=== PATIENT | female | born 1985 | race Two or more races ===

== ENCOUNTER 2020-01-28 11:23 | Outpatient (REF) | payer OTHER, SELFPAY ==
[2020-01-28 12:09] LABS: MANUAL DIFF FLAG NO
[2020-01-28 12:18] LABS: Basophils Absolute Auto 0.1 X10*3/uL (0.0-0.2); Basophils Percent Auto 0.6 % (0-2); Eosinophils Absolute Auto 0.2 X10*3/uL (0.0-0.4); Eosinophils Percent Auto 3.1 % (0-4); Hematocrit 37.7 % (37-47); Hemoglobin 11.5 g/dl (12.0-16.0); Imm Gran Abs Auto 0.01 X10*3/uL (0.00-0.03); Imm Gran Pct Auto 0.1 % (0.0-0.4); Immature Retic Fraction 21.6 % (3.0-15.9); Lymphocytes Absolute Auto 2.1 X10*3/uL (1.2-4.9); Lymphocytes Percent Auto 27.1 % (20-40); Mean Corpuscular HGB Conc 30.5 g/dl (31.0-35.0); Mean Corpuscular Hemoglobin 23.6 pg (27.0-33.0); Mean Corpuscular Volume 77.4 fL (80-98); Mean Platelet Volume 9.5 fL (9.4-12.3); Monocytes Absolute Auto 0.4 X10*3/uL (0.1-1.2); Monocytes Percent Auto 5.2 % (2-11); Neutrophils Absolute Auto 4.9 X10*3/uL (2.0-8.3); Neutrophils Percent Auto 63.9 % (45-73); Platelet Count 383 X10*3/uL (160-400); Red Blood Count 4.87 X10*6/uL (4.20-5.50); Red Cell Distribution Width 16.8 % (11.0-16.0); Retic HGB Equivalent 27.1 pg (30.0-35.0); Reticulocyte Percent 1.8 % (0.5-1.8); Reticulocytes Absolute 0.089 X10*6/uL (0.026-0.095); White Blood Count 7.7 X10*3/uL (4.8-10.8)
[2020-01-28 13:28] LABS: Estimated Average Glucose 103 mg/dL; Hemoglobin A1c % 5.2 %
[2020-01-28 13:33] LABS: Alanine Aminotransferase 28 U/L (0-31); Albumin Level 3.9 g/dL (3.5-5.0); Alkaline Phosphatase 101 U/L (39-117); Anion Gap 11 (12-20); Aspartate Amino Transferase 24 U/L (5-31); Bilirubin Total 0.7 mg/dL (0.0-1.0); Blood Urea Nitrogen 13 mg/dL (9-16); Calcium 8.9 mg/dL (8.4-10.2); Carbon Dioxide 29 mmol/L (22-29); Chloride 104 mmol/L (96-108); Cholesterol 136 mg/dL; Estimated Glomerular Filt Rate > 60; Glucose Fasting 81 mg/dL (60-99); HDL Cholesterol 42 mg/dL; Iron 36 mcg/dL (30-160); LDL Cholesterol Calculated 83 mg/dl; Percent Iron Saturation 9 % (15-50); Potassium 4.4 mmol/l (3.3-5.1); Sodium 140 mmol/L (135-145); Total Iron Binding Capacity 411 mcg/dL (228-428); Triglycerides 58 mg/dL; Unsaturated Iron Binding 375 ug/dL
[2020-01-28 14:04] LABS: Ferritin 11 ng/mL (10-122); Thyroid Stimulating Hormone 2.12 mIU/mL (0.32-4.0); Vitamin D 25-OH Total 24.4 ng/mL (>30)
[2020-01-28 14:11] LABS: Vitamin B12 189 pg/mL (200-900)
[2020-01-28 14:38] LABS: T4 Thyroxine 8.3 ug/dL (4.5-12.0)
== END 2020-01-28 11:24 | disposition home or self-care (01) ==
LOC: HO.LAB 11:23
PROVIDERS: PCP Internal Medicine; Visit Provider Internal Medicine
DX: Z00.00 Encounter for general adult medical examination without abnormal findings (principal); F31.9 Bipolar disorder, unspecified; J45.909 Unspecified asthma, uncomplicated; I10 Essential (primary) hypertension; E55.9 Vitamin D deficiency, unspecified; E66.01 Morbid (severe) obesity due to excess calories; N64.4 Mastodynia; Z12.4 Encounter for screening for malignant neoplasm of cervix
CPT/HCPCS: 36415; 80053; 80061; 82306; 82607; 82728; 82746; 83036; 83540; 84436; 84443; 85025; 85045

== ENCOUNTER 2020-03-08 11:19 | Outpatient (REF) | payer OTHER, SELFPAY ==
[2020-03-08 13:53] LABS: Hematocrit 39.4 % (37-47); Mean Corpuscular HGB Conc 30.5 g/dl (31.0-35.0); Mean Corpuscular Hemoglobin 23.3 pg (27.0-33.0); Mean Corpuscular Volume 76.7 fL (80-98); Mean Platelet Volume 9.6 fL (9.4-12.3); Platelet Count 399 X10*3/uL (160-400); Red Blood Count 5.14 X10*6/uL (4.20-5.50); Red Cell Distribution Width 16.9 % (11.0-16.0); White Blood Count 10.4 X10*3/uL (4.8-10.8)
[2020-03-08 15:50] LABS: Thyroid Stimulating Hormone 2.64 uIU/mL (0.32-4.0)
[2020-03-09 02:52] LABS: CT PCR NOT DETECTED (Not Detect.); NG PCR NOT DETECTED (Not Detect.)
[2020-03-09 08:26] LABS: Syphilis Screen Nonreactive (Nonreactive)
[2020-03-09 09:06] LABS: BV Int Neg Control Negative (Negative); BV Int Pos Control Positive (Positive)
[2020-03-10 09:02] LABS: Hepatitis B Core Antibody Nonreactive (Nonreactive); ~HepC Num1 0.17 S/CO (0.00-0.79); ~Hepatitis C Antibody Nonreactive (Nonreactive)
[2020-03-10 09:23] LABS: HIV AB/AG Nonreactive (Nonreactive); HIV Num 1 0.23 S/CO (0.00-0.99)
[2020-03-10 18:16] LABS: HPV mRNA E6/E7 rflx Not Detected (Not Detected)
== END 2020-03-08 11:20 | disposition home or self-care (01) ==
LOC: HO.LAB 11:19
PROVIDERS: PCP Internal Medicine; Visit Provider Advanced Practice Midwife
DX: Z01.419 Encounter for gynecological examination (general) (routine) without abnormal findings (principal); N92.6 Irregular menstruation, unspecified; R10.2 Pelvic and perineal pain; Z20.2 Contact with and (suspected) exposure to infections with a predominantly sexual mode of transmission; N92.1 Excessive and frequent menstruation with irregular cycle
CPT/HCPCS: 36415; 84443; 85027; 86704; 86780; 86803; 87389; 87480; 87491; 87510; 87591; 87624; 87625; 87660; 88142

== ENCOUNTER → 2020-03-11 12:58 | Outpatient (BNVA) | payer OTHER, SELFPAY | PROVIDERS: PCP Internal Medicine; Visit Provider Advanced Practice Midwife | DX: Z76.89 Persons encountering health services in other specified circumstances (principal) ==

== ENCOUNTER 2020-03-21 11:40 | Outpatient (REF) | payer OTHER, SELFPAY ==
--- NOTE | 2020-03-21 11:42 | US_ITS ---
EXAMINATION: US PELVIS COMPLETE CLINICAL INFORMATION: Pelvic and perineal pain. COMPARISON: None. TECHNIQUE: Transabdominal and transvaginal imaging of pelvis is performed. FINDINGS: The uterus is anteverted measuring 10.1 cm in length, 4.9 cm in AP and 6.4 cm in transverse dimension. Endometrial thickness measures 0.7 cm. There is an IUD within the endometrial canal in correct position. Right ovary measures 2.8 x 2.1 x 2.1 cm and volume 6.5 mL. There are multiple small follicles seen in the right ovary. Left ovary measures 3.3 x 4.5 x 1.4 cm and volume 10.9 mL. There are multiple small follicles seen. US/US transvaginal IMPRESSION: Unremarkable uterus and ovaries. IUD well seen within the endometrial canal in good position.
--- NOTE | 2020-03-21 11:42 | US_ITS ---
EXAMINATION: US PELVIS COMPLETE CLINICAL INFORMATION: Pelvic and perineal pain. COMPARISON: None. TECHNIQUE: Transabdominal and transvaginal imaging of pelvis is performed. FINDINGS: The uterus is anteverted measuring 10.1 cm in length, 4.9 cm in AP and 6.4 cm in transverse dimension. Endometrial thickness measures 0.7 cm. There is an IUD within the endometrial canal in correct position. Right ovary measures 2.8 x 2.1 x 2.1 cm and volume 6.5 mL. There are multiple small follicles seen in the right ovary. Left ovary measures 3.3 x 4.5 x 1.4 cm and volume 10.9 mL. There are multiple small follicles seen. US/US pelvic complete IMPRESSION: Unremarkable uterus and ovaries. IUD well seen within the endometrial canal in good position.
== END 2020-03-21 11:41 | disposition home or self-care (01) ==
LOC: HO.US 11:40
PROVIDERS: PCP Internal Medicine; Visit Provider Advanced Practice Midwife
DX: R10.2 Pelvic and perineal pain (principal)
CPT/HCPCS: 76830; 76856

== ENCOUNTER → 2020-03-22 10:25 | Outpatient (BNVA) | payer OTHER, SELFPAY | PROVIDERS: PCP Internal Medicine; Visit Provider Advanced Practice Midwife | DX: Z76.89 Persons encountering health services in other specified circumstances (principal) ==

== ENCOUNTER 2020-04-08 10:34 | Outpatient (REF) | payer OTHER, SELFPAY ==
[2020-04-09 11:04] LABS: BV Int Neg Control Negative (Negative)
[2020-04-09 11:05] LABS: BV Int Pos Control Positive (Positive)
== END 2020-04-08 10:35 | disposition home or self-care (01) ==
LOC: HO.LAB 10:34
PROVIDERS: PCP Internal Medicine; Referring Provider Internal Medicine; Visit Provider Advanced Practice Midwife
DX: Z30.431 Encounter for routine checking of intrauterine contraceptive device (principal); N89.8 Other specified noninflammatory disorders of vagina; G43.909 Migraine, unspecified, not intractable, without status migrainosus
CPT/HCPCS: 87480; 87510; 87660; 99212

== ENCOUNTER 2020-04-16 07:54 | Outpatient (REF) | payer OTHER, SELFPAY | END 2020-04-16 07:55 | disposition home or self-care (01) | LOC: HO.LAB 07:54 | PROVIDERS: Visit Provider Internal Medicine | DX: Z20.828 Contact with and (suspected) exposure to other viral communicable diseases (principal) | CPT/HCPCS: C9803; U0003 ==

== ENCOUNTER → 2020-05-17 09:24 | Outpatient (BNVA) | payer OTHER, SELFPAY | PROVIDERS: PCP Internal Medicine; Visit Provider Nurse Practitioner Family ==

== ENCOUNTER → 2020-06-23 12:35 | Outpatient (BNVA) | payer OTHER, SELFPAY | PROVIDERS: PCP Internal Medicine; Visit Provider Physician Assistant | DX: E66.01 Morbid (severe) obesity due to excess calories (principal); G47.33 Obstructive sleep apnea (adult) (pediatric) | CPT/HCPCS: 99202 ==

== ENCOUNTER → 2020-07-13 08:13 | Outpatient (BNVA) | payer OTHER, SELFPAY | PROVIDERS: PCP Internal Medicine; Visit Provider Dietitian, Registered ==

== ENCOUNTER → 2020-07-20 10:19 | Outpatient (REF) | payer OTHER, SELFPAY | LOC: HO.SL 10:19 | PROVIDERS: PCP Internal Medicine; Visit Provider Nurse Practitioner Family | DX: G47.33 Obstructive sleep apnea (adult) (pediatric) (principal) | CPT/HCPCS: 95806 ==

== ENCOUNTER → 2020-08-10 08:14 | Outpatient (BNVA) | payer OTHER, SELFPAY | PROVIDERS: PCP Internal Medicine; Visit Provider Dietitian, Registered ==

== ENCOUNTER → 2020-10-11 10:55 | Outpatient (BNVA) | payer OTHER, SELFPAY | PROVIDERS: PCP Internal Medicine; Visit Provider Nurse Practitioner Family ==

== ENCOUNTER → 2020-10-18 08:41 | Outpatient (BNVA) | payer OTHER, SELFPAY | PROVIDERS: PCP Internal Medicine; Visit Provider Nurse Practitioner Family ==

== ENCOUNTER → 2021-01-10 10:13 | Outpatient (BNVA) | payer OTHER, SELFPAY | PROVIDERS: PCP Internal Medicine; Visit Provider Nurse Practitioner Family ==

== ENCOUNTER → 2021-01-30 11:16 | Outpatient (BNVA) | payer OTHER, SELFPAY | PROVIDERS: PCP Internal Medicine; Visit Provider Dietitian, Registered | DX: E66.01 Morbid (severe) obesity due to excess calories (principal) | CPT/HCPCS: 97802 ==

== ENCOUNTER → 2021-03-02 10:51 | Outpatient (BNVA) | payer OTHER, SELFPAY | PROVIDERS: PCP Internal Medicine; Visit Provider Dietitian, Registered | DX: E66.01 Morbid (severe) obesity due to excess calories (principal) | CPT/HCPCS: 97803 ==

== ENCOUNTER → 2021-04-20 10:18 | Outpatient (BNVA) | payer OTHER, SELFPAY | PROVIDERS: PCP Internal Medicine; Visit Provider Dietitian, Registered | DX: E66.01 Morbid (severe) obesity due to excess calories (principal); Z68.43 Body mass index [BMI] 50.0-59.9, adult | CPT/HCPCS: 97803 ==

== ENCOUNTER 2021-05-15 09:23 | Outpatient (REF) | payer OTHER, SELFPAY ==
[2021-05-15 10:29] LABS: COVID-19 Test Negative (Negative)
== END 2021-05-15 09:24 | disposition home or self-care (01) ==
LOC: HO.LAB 09:23
PROVIDERS: Visit Provider Internal Medicine
DX: Z20.822 Contact with and (suspected) exposure to COVID-19 (principal)
CPT/HCPCS: 87635; C9803

== ENCOUNTER 2021-05-19 11:07 | Outpatient (REF) | payer OTHER, SELFPAY ==
[2021-05-19 11:28] LABS: Binax Internal Control QC Valid; Binax Now Covid-19 Ag Negative (Negative)
== END 2021-05-19 11:08 | disposition home or self-care (01) ==
LOC: HO.LAB 11:07
PROVIDERS: PCP Internal Medicine; Visit Provider Internal Medicine
DX: Z20.822 Contact with and (suspected) exposure to COVID-19 (principal)
CPT/HCPCS: C9803

== ENCOUNTER → 2021-05-24 10:37 | Outpatient (BNVA) | payer OTHER, SELFPAY | PROVIDERS: PCP Internal Medicine; Visit Provider Nurse Practitioner Family | DX: G93.2 Benign intracranial hypertension (principal); G43.909 Migraine, unspecified, not intractable, without status migrainosus; G47.33 Obstructive sleep apnea (adult) (pediatric); R20.2 Paresthesia of skin | CPT/HCPCS: 99212 ==

== ENCOUNTER 2021-06-08 11:01 | Outpatient (REF) | payer OTHER, SELFPAY ==
[2021-06-08 11:32] LABS: MANUAL DIFF FLAG NO
[2021-06-08 13:04] LABS: Basophils Percent Auto 0.4 % (0-2); Eosinophils Absolute Auto 0.2 X10*3/uL (0.0-0.4); Eosinophils Percent Auto 2.4 % (0-4); Hematocrit 42.3 % (37.0-47.0); Hemoglobin 13.4 g/dl (12.0-16.0); Imm Gran Abs Auto 0.03 X10*3/uL (0.00-0.03); Imm Gran Pct Auto 0.3 % (0.0-0.4); Lymphocytes Absolute Auto 2.4 X10*3/uL (1.2-4.9); Lymphocytes Percent Auto 25.2 % (20-40); Mean Corpuscular HGB Conc 31.7 g/dl (31.0-35.0); Mean Corpuscular Volume 82.1 fL (80.0-98.0); Mean Platelet Volume 9.6 fL (9.4-12.3); Monocytes Absolute Auto 0.5 X10*3/uL (0.1-1.2); Monocytes Percent Auto 5.1 % (2-11); Neutrophils Absolute Auto 6.4 x10*3/uL (2.0-8.3); Neutrophils Percent Auto 66.6 % (45-73); Platelet Count 405 X10*3/uL (160-400); Red Blood Count 5.15 X10*6/uL (4.20-5.50); Red Cell Distribution Width 15.4 % (11.0-16.0); White Blood Count 9.6 X10*3/uL (4.8-10.8)
[2021-06-08 13:38] LABS: Alanine Aminotransferase 18 U/L (0-31); Alkaline Phosphatase 105 U/L (39-117); Anion Gap 13 (12-20); Aspartate Amino Transferase 15 U/L (5-31); Bilirubin Total 0.7 mg/dL (0.0-1.0); Blood Urea Nitrogen 13 mg/dL (9-16); Calcium 9.2 mg/dL (8.4-10.2); Carbon Dioxide 26 mmol/L (22-29); Chloride 106 mmol/L (96-108); Estimated Glomerular Filt Rate > 60; Glucose Random 82 mg/dL (60-115); Iron 46 mcg/dL (30-160); Percent Iron Saturation 12 % (15-50); Potassium 4.6 mmol/L (3.3-5.1); Sodium 140 mmol/L (135-145); Total Iron Binding Capacity 398 mcg/dL (228-428); Total Protein 7.7 g/dL (6.5-8.0); Unsaturated Iron Binding 352 ug/dL
[2021-06-08 14:08] LABS: TSH reflex Free T4 1.89 uIU/mL (0.32-4.0)
[2021-06-08 14:39] LABS: Ferritin 45 ng/mL (10-122)
[2021-06-10 13:51] LABS: Transferrin 309 mg/dL (188-341)
== END 2021-06-08 11:02 | disposition home or self-care (01) ==
LOC: HO.LAB 11:01
PROVIDERS: Absent Provider Nurse Practitioner Family; PCP Internal Medicine; Visit Provider Internal Medicine
DX: D64.9 Anemia, unspecified (principal); I10 Essential (primary) hypertension; R53.83 Other fatigue; K59.00 Constipation, unspecified
CPT/HCPCS: 36415; 80053; 82728; 83540; 84443; 84466; 85025

== ENCOUNTER 2021-08-10 12:42 | Outpatient (REF) | payer OTHER, SELFPAY ==
--- NOTE | ~2021-08-10 | XR_ITS ---
EXAMINATION: X-RAY THORACIC SPINE X-RAY LUMBAR SPINE CLINICAL INFORMATION: Pain. COMPARISON: No similar priors. TECHNIQUE: 3 views of the thoracic spine and 3 views of the lumbar spine were obtained. FINDINGS: Nonspecific endplate sclerosis and irregularity at the superior and inferior endplates of L1. There is also nonspecific mild irregularity in the inferior endplate of T10 and T11. There is a tiny nonspecific well-corticated bony fragment anterior to the inferior endplate of L3. Sacroiliac joints are symmetric. There are multiple pelvic phleboliths and an IUD in the pelvis. Imaged portions of the lungs and cardiomediastinal silhouette are within normal limits. XR/XR lumbar spine 2-3V IMPRESSION: Nonspecific endplate irregularity at L1 and less so T10 and T11. Correlate for point tenderness and if indicated consider further evaluation with a CT or an MR.
--- NOTE | ~2021-08-10 | XR_ITS ---
EXAMINATION: XR CERVICAL SPINE CLINICAL INFORMATION: Pain. COMPARISON: No similar priors. TECHNIQUE: 3 views of the cervical spine were obtained. FINDINGS: There are no prevertebral soft tissue or bony abnormalities demonstrated. No compression fractures or subluxations are identified. Alignment is maintained at the atlanto-axial articulation. The disc spaces are preserved. No endplate changes are seen. The prevertebral soft tissues are normal. XR/XR cervical spine 2V IMPRESSION: Unremarkable examination.
--- NOTE | ~2021-08-10 | XR_ITS ---
EXAMINATION: X-RAY THORACIC SPINE X-RAY LUMBAR SPINE CLINICAL INFORMATION: Pain. COMPARISON: No similar priors. TECHNIQUE: 3 views of the thoracic spine and 3 views of the lumbar spine were obtained. FINDINGS: Nonspecific endplate sclerosis and irregularity at the superior and inferior endplates of L1. There is also nonspecific mild irregularity in the inferior endplate of T10 and T11. There is a tiny nonspecific well-corticated bony fragment anterior to the inferior endplate of L3. Sacroiliac joints are symmetric. There are multiple pelvic phleboliths and an IUD in the pelvis. Imaged portions of the lungs and cardiomediastinal silhouette are within normal limits. XR/XR thoracic spine 2V IMPRESSION: Nonspecific endplate irregularity at L1 and less so T10 and T11. Correlate for point tenderness and if indicated consider further evaluation with a CT or an MR.
== END 2021-08-10 12:43 | disposition home or self-care (01) ==
LOC: HO.XRAY 12:42
PROVIDERS: PCP Internal Medicine; Visit Provider Internal Medicine
DX: M54.9 Dorsalgia, unspecified (principal)
CPT/HCPCS: 72040; 72070; 72100

== ENCOUNTER 2021-08-23 13:13 | Outpatient (REF) | payer OTHER, SELFPAY ==
[2021-08-23 17:54] LABS: CT PCR NOT DETECTED (Not Detect.); NG PCR NOT DETECTED (Not Detect.)
[2021-08-24 15:47] LABS: BV Int Neg Control Negative (Negative); BV Int Pos Control Positive (Positive)
== END 2021-08-23 13:14 | disposition home or self-care (01) ==
LOC: HO.LAB 13:13
PROVIDERS: PCP Internal Medicine; Visit Provider Advanced Practice Midwife
DX: Z01.419 Encounter for gynecological examination (general) (routine) without abnormal findings (principal); N93.9 Abnormal uterine and vaginal bleeding, unspecified; L29.2 Pruritus vulvae; R71.8 Other abnormality of red blood cells; Z87.891 Personal history of nicotine dependence; Z20.2 Contact with and (suspected) exposure to infections with a predominantly sexual mode of transmission
CPT/HCPCS: 87480; 87491; 87510; 87591; 87660

== ENCOUNTER 2021-09-14 13:12 | Outpatient (REF) | payer OTHER, SELFPAY ==
--- NOTE | ~2021-09-14 | US_ITS ---
EXAMINATION: US PELVIS COMPLETE US PELVIS ENDOVAGINAL WITH DOPPLER CLINICAL INFORMATION: Irregular menstruation COMPARISON: 01/14/2017 TECHNIQUE: Transabdominal and transvaginal images of the pelvis were obtained. Color and spectral Doppler evaluation of the bilateral adnexa was performed. FINDINGS: UTERUS: Anteverted, anteflexed. Normal size and contour, measuring 10.7 x 5.2 x 5.8 cm (cervix to fundus x AP x transverse). Uniform, homogeneous endometrium measures 0.9 cm in width. A linear echogenic IUD is seen centrally in the endometrial canal. Small amount of fluid in the endocervical canal is consistent with ongoing vaginal bleeding. RIGHT OVARY: The right ovary was only identified transabdominally. It measures 4.5 x 3.4 x 3.6 cm with a 3.6 x 3.1 x 3.0 cm anechoic simple physiologic cyst for which no imaging follow-up is recommended. Normal arterial and venous spectral Doppler waveforms are identified. LEFT OVARY: Left ovary not seen. No adnexal mass. FREE FLUID: No pelvic free fluid. US/US pelvic and transvaginal IMPRESSION: Normal endometrial stripe, 9 mm in thickness. Small amount of fluid in the endocervical canal is consistent with history of ongoing vaginal bleeding. Normal right ovary. Left ovary not seen but there is no adnexal mass.
== END 2021-09-14 13:13 | disposition home or self-care (01) ==
LOC: HO.US 13:12
PROVIDERS: Visit Provider Advanced Practice Midwife
DX: N92.6 Irregular menstruation, unspecified (principal)
CPT/HCPCS: 76830; 76856

== ENCOUNTER → 2021-09-20 10:56 | Outpatient (BNVA) | payer OTHER, SELFPAY | PROVIDERS: PCP Internal Medicine; Visit Provider Advanced Practice Midwife | DX: Z13.89 Encounter for screening for other disorder (principal) ==

== ENCOUNTER → 2021-12-12 16:12 | Outpatient (REF) | payer OTHER, SELFPAY | LOC: HO.SL 16:12 | PROVIDERS: PCP Internal Medicine; Visit Provider Internal Medicine | DX: G47.33 Obstructive sleep apnea (adult) (pediatric) (principal) | CPT/HCPCS: 95806 ==

== ENCOUNTER → 2022-02-14 08:05 | Outpatient (REF) | payer OTHER, SELFPAY ==
--- NOTE | 2022-02-14 08:08 | CA_ITS ---
Acquisition Time: 2022-02-14 08:15:17 Total Exercise Time: 00:05:00 Test Indications: Chest Pain Medications: SEE H Protocol: TEO Max HR: 160 BPM 87% of Pred: 182 BPM Max BP: 144/078 mmHG Max Work Load: 7.0 METS Exercise stress test with exercise 5 min of Teo protocol, achieving 87% MPHR, 7 METS, with fatigue and mild sob, no chest discomfort, without arrythmia, with normotensive response to exercise, without EKG changes meeting criteria for ischemia. In later recovery there is slight downslope of ST lead II, V6 and downslope ST lead III, aVF, which could be nonspecific finding as baseline EKG has downsloping ST lead III. Test reviewed with Dr Ceballos. Message sent to ordering provider with report and recommendation for a stress echocardiogram if further evaluation for ischemia is needed. Referred By: Atif Milian Overread By: ARIK MORLEY
== END ==
LOC: HO.CARD 08:05
PROVIDERS: PCP Internal Medicine; Visit Provider Internal Medicine
DX: R07.9 Chest pain, unspecified (principal)
CPT/HCPCS: 93017

== ENCOUNTER → 2022-02-26 10:57 | Outpatient (REF) | payer OTHER, SELFPAY ==
--- NOTE | 2022-02-26 11:00 | CA_ITS ---
Acquisition Time: 2022-02-26 11:33:25 Total Exercise Time: 00:05:49 Test Indications: CP Medications: SEE CHART Protocol: TEO Max HR: 173 BPM 95% of Pred: 182 BPM Max BP: 164/080 mmHG Max Work Load: 7.0 METS Exercise stress test with exercise 5 min 49 sec of Teo protocol, achieving 95% MPHR, without anginal symptoms, without arrythmia, with normotensive response to exercise, without EKG changes meeting criteria for ischemia at peak exercise, with slight downslope of ST in lead I, V6 in recovery, At baseline there was downsloping ST lead III, aVF which was present throughout test. Echo images obtained by tech at rest and immediately post peak exercise. Definity contrast used. Test reviewed with Dr Friedman Referred By: Atif Milian Overread By: ARIK MORLEY
== END ==
LOC: HO.CARD 10:57
PROVIDERS: PCP Internal Medicine; Visit Provider Internal Medicine
DX: R07.9 Chest pain, unspecified (principal)
CPT/HCPCS: 93350; Q9957

== ENCOUNTER 2022-02-28 16:27 | Outpatient (REF) | payer OTHER, SELFPAY ==
--- NOTE | ~2022-02-28 | US_ITS ---
EXAMINATION: US PELVIS LIMITED (BLADDER) CLINICAL INFORMATION: Retention of urine, unspecified. COMPARISON: Ultrasound abdomen complete 10/31/2017. Renal ultrasound 01/14/2017. CT abdomen and pelvis 03/20/2014. X-ray KUB 03/17/2014 and 03/09/2014. TECHNIQUE: Real-time imaging of the bladder. FINDINGS: BLADDER: Well distended and normal. Bilateral ureteral jets are demonstrated. Prevoid bladder volume is 213.0 mL. Postvoid bladder volume is 24.3 mL. There is no significant post void bladder residual. US/US bladder IMPRESSION: Unremarkable exam.
== END 2022-02-28 16:28 | disposition home or self-care (01) ==
LOC: HO.US 16:27
PROVIDERS: Visit Provider Internal Medicine
DX: R33.9 Retention of urine, unspecified (principal)
CPT/HCPCS: 76857

== ENCOUNTER → 2022-03-05 11:04 | Outpatient (BNVA) | payer OTHER, SELFPAY | PROVIDERS: PCP Internal Medicine; Visit Provider Physician Assistant | DX: K62.5 Hemorrhage of anus and rectum (principal); E66.01 Morbid (severe) obesity due to excess calories; Z83.71 Family history of colonic polyps; Z68.43 Body mass index [BMI] 50.0-59.9, adult | CPT/HCPCS: 99202; 99212 ==

== ENCOUNTER → 2022-04-17 14:50 | Outpatient (BNVA) | payer OTHER, SELFPAY | PROVIDERS: PCP Internal Medicine; Referring Provider Internal Medicine; Visit Provider Internal Medicine | DX: R07.9 Chest pain, unspecified (principal) | CPT/HCPCS: 99202 ==

== ENCOUNTER → 2022-07-23 13:42 | Outpatient (BNVA) | payer OTHER, SELFPAY | PROVIDERS: PCP Internal Medicine; Visit Provider Physician Assistant ==

== ENCOUNTER 2022-08-02 12:48 | Outpatient (REF) | payer OTHER, SELFPAY | END 2022-08-02 12:49 | disposition home or self-care (01) | LOC: HO.SH 12:48 | PROVIDERS: Visit Provider Internal Medicine | DX: Z01.118 Encounter for examination of ears and hearing with other abnormal findings (principal); H93.13 Tinnitus, bilateral; R42 Dizziness and giddiness | CPT/HCPCS: 92557; 92567 ==

== ENCOUNTER → 2022-08-06 12:57 | Outpatient (BNVA) | payer OTHER, SELFPAY | PROVIDERS: PCP Internal Medicine; Visit Provider Physician Assistant | DX: Z11.0 Encounter for screening for intestinal infectious diseases (principal); E66.01 Morbid (severe) obesity due to excess calories; G47.33 Obstructive sleep apnea (adult) (pediatric); I10 Essential (primary) hypertension; G43.909 Migraine, unspecified, not intractable, without status migrainosus; F31.9 Bipolar disorder, unspecified; G93.2 Benign intracranial hypertension; Z68.43 Body mass index [BMI] 50.0-59.9, adult | CPT/HCPCS: 99211; 99212 ==

== ENCOUNTER 2022-08-06 14:10 | Outpatient (REF) | payer OTHER, SELFPAY ==
[2022-08-10 12:14] LABS: H Pylori Breath Test Negative (Negative)
== END 2022-08-06 14:11 | disposition home or self-care (01) ==
LOC: HO.LNP 14:10
PROVIDERS: Visit Provider Physician Assistant
DX: Z01.818 Encounter for other preprocedural examination (principal); E66.01 Morbid (severe) obesity due to excess calories
CPT/HCPCS: 83013

== ENCOUNTER 2022-08-28 11:00 | Outpatient (REF) | payer OTHER, SELFPAY ==
[2022-08-28 15:00] LABS: CT PCR NOT DETECTED (Not Detect.); NG PCR NOT DETECTED (Not Detect.)
[2022-08-29 08:53] LABS: BV Int Neg Control Negative (Negative); BV Int Pos Control Positive (Positive)
== END 2022-08-28 11:01 | disposition home or self-care (01) ==
LOC: HO.LAB 11:00
PROVIDERS: PCP Internal Medicine; Visit Provider Advanced Practice Midwife
DX: N92.1 Excessive and frequent menstruation with irregular cycle (principal); Z20.2 Contact with and (suspected) exposure to infections with a predominantly sexual mode of transmission; Z97.5 Presence of (intrauterine) contraceptive device
CPT/HCPCS: 0353U; 87480; 87510; 87660

== ENCOUNTER 2022-08-28 12:08 | Outpatient (REF) | payer OTHER, SELFPAY ==
[2022-08-31 06:28] LABS: HPV mRNA E6/E7 rflx Not Detected (Not Detected)
== END 2022-08-28 12:09 | disposition home or self-care (01) ==
LOC: HO.LNP 12:08
PROVIDERS: Visit Provider Advanced Practice Midwife
DX: Z01.419 Encounter for gynecological examination (general) (routine) without abnormal findings (principal); Z11.51 Encounter for screening for human papillomavirus (HPV); N92.1 Excessive and frequent menstruation with irregular cycle; Z97.5 Presence of (intrauterine) contraceptive device
CPT/HCPCS: 87624; 88142

== ENCOUNTER → 2022-09-05 10:15 | Outpatient (BNVA) | payer OTHER, SELFPAY | PROVIDERS: PCP Internal Medicine; Visit Provider Dietitian, Registered | DX: E66.01 Morbid (severe) obesity due to excess calories (principal) | CPT/HCPCS: 97803 ==

== ENCOUNTER 2022-09-12 10:14 | Outpatient (REF) | payer OTHER, SELFPAY ==
--- NOTE | ~2022-09-12 | US_ITS ---
EXAMINATION: US PELVIS CLINICAL INFORMATION: Excessive and frequent menses; for assessment of IUD position. COMPARISON: Pelvic ultrasound dated 09/14/2021. TECHNIQUE: Ultrasound of the pelvis is performed using both transabdominal and transvaginal transducers along with Doppler. Transvaginal imaging is performed due to inadequate visualization transabdominally. FINDINGS: Uterus: The uterus is anteverted and anteflexed. The uterus measures 10.1 x 5.0 x 5.6 cm. The double wall endometrial thickness is 0.6 mm. An intrauterine device is seen, properly situated within the endometrial canal. There is very mild nonspecific, anechoic fluid within the endocervical canal. The uterus is smooth in contour and has normal myometrial echogenicity. No visible fibroid. The right ovary is not visualized. The left ovary measures 3.0 x 2.7 x 2.4 cm for a volume of 10.5 mL. The left ovary contains a 2.7 cm in maximal diameter simple physiologic cyst. There is no pelvic free fluid. No adnexal mass is seen. US/US pelvic and transvaginal IMPRESSION: 1. An intrauterine device is seen, properly situated within the endometrial canal. 2. There is mild endocervical anechoic fluid. 3. The right ovary is not visualized. 4. A 2.7 cm simple physiologic left ovarian cyst is seen, for which no imaging follow-up is recommended.
[2022-09-12 11:09] LABS: Hematocrit 41.9 % (37.0-47.0); Hemoglobin 13.7 g/dl (12.0-16.0); Mean Corpuscular HGB Conc 32.7 g/dl (31.0-35.0); Mean Corpuscular Hemoglobin 27.1 pg (27.0-33.0); Mean Platelet Volume 9.5 fL (9.4-12.3); Platelet Count 338 X10*3/uL (160-400); Red Blood Count 5.05 X10*6/uL (4.20-5.50); Red Cell Distribution Width 13.8 % (11.0-16.0)
[2022-09-12 12:10] LABS: HCG Quantitative < 2 mIU/mL
[2022-09-12 12:16] LABS: Syphilis Screen Nonreactive (Nonreactive)
[2022-09-12 12:26] LABS: HBc Num1 0.07 S/CO (0.00-0.79); HIV AB/AG Nonreactive (Nonreactive); HIV Num 1 0.07 S/CO (0.00-0.99); Hepatitis B Core Antibody Nonreactive (Nonreactive); ~HepC Num1 0.19 S/CO (0.00-0.79); ~Hepatitis C Antibody Nonreactive (Nonreactive)
== END 2022-09-12 10:15 | disposition home or self-care (01) ==
LOC: HO.US 10:14
PROVIDERS: PCP Internal Medicine; Visit Provider Advanced Practice Midwife
DX: Z11.4 Encounter for screening for human immunodeficiency virus [HIV] (principal); N92.1 Excessive and frequent menstruation with irregular cycle; Z20.2 Contact with and (suspected) exposure to infections with a predominantly sexual mode of transmission; Z97.5 Presence of (intrauterine) contraceptive device
CPT/HCPCS: 36415; 76830; 76856; 84702; 85027; 86704; 86780; 86803; 87389

== ENCOUNTER → 2022-09-19 10:28 | Outpatient (BNVA) | payer OTHER, SELFPAY | PROVIDERS: PCP Internal Medicine; Visit Provider Physician Assistant | DX: E66.01 Morbid (severe) obesity due to excess calories (principal); Z68.43 Body mass index [BMI] 50.0-59.9, adult; F31.9 Bipolar disorder, unspecified; F43.10 Post-traumatic stress disorder, unspecified; F41.0 Panic disorder [episodic paroxysmal anxiety] | CPT/HCPCS: 99212 ==

== ENCOUNTER → 2022-09-26 09:20 | Outpatient (BNVA) | payer OTHER, SELFPAY | PROVIDERS: PCP Internal Medicine; Visit Provider Advanced Practice Midwife ==

== ENCOUNTER → 2022-11-01 14:42 | Outpatient (BNVA) | payer OTHER, SELFPAY | PROVIDERS: PCP Internal Medicine; Visit Provider Internal Medicine | DX: G47.33 Obstructive sleep apnea (adult) (pediatric) (principal); J45.909 Unspecified asthma, uncomplicated; F31.9 Bipolar disorder, unspecified; E66.01 Morbid (severe) obesity due to excess calories; Z68.43 Body mass index [BMI] 50.0-59.9, adult | CPT/HCPCS: 99202 ==

== ENCOUNTER 2023-01-29 10:59 | Outpatient (AMB) | payer OTHER, SELFPAY ==
[2023-01-29 11:13] VITALS: BP 136/74; PULSE 85; O2SAT 98; BMI 54.1
--- NOTE | 2023-01-29 11:13 | A.OFFPC_ITS ---
Vital Signs 01/29/23 11:13 Height 5 ft Weight 277 lb BMI 54.1 BP 136/74 Blood Pressure Location Lt brachial Position Sitting Pulse 85 Pulse Source Pulse Oximeter Pulse Oximetry (%) 98 Oxygen Delivery Method Room Air Intake Visit Reasons: PE Allergies Iodinated Contrast Media [CONTRAST, IV] Allergy (Severe, Verified 01/29/23 11:14) Anaphylaxis bee pollen [bee stings] Allergy (Unknown, Verified 01/29/23 11:14) edema Benadryl Allergy (Unknown, Verified 01/29/23 11:14) edema, swelling citalopram [Celexa] Allergy (Unknown, Verified 01/29/23 11:14) edema hydrochlorothiazide Allergy (Unknown, Verified 01/29/23 11:14) unknown latex Allergy (Unknown, Verified 01/29/23 11:14) Swelling prednisolone Allergy (Unknown, Verified 01/29/23 11:14) unknown seafood Allergy (Unknown, Verified 01/29/23 11:14) Hives shellfish derived Allergy (Unknown, Verified 01/29/23 11:14) Swelling tramadol Allergy (Unknown, Verified 01/29/23 11:14) hives sertraline Adverse Reaction (Intermediate, Verified 01/29/23 11:14) confused, yaya Diamox Sequels Adverse Reaction (Unknown, Verified 01/29/23 11:14) pain/tingling lisinopril Adverse Reaction (Unknown, Verified 01/29/23 11:14) dizziness Medication List - Last Reconciled 01/29/23 by Aitf Milian MD albuterol sulfate 90 mcg/actuation (Ventolin HFA) 2 puffs inhalation Q6H PRN ascorbate calcium (vitamin C) 500 mg PO DAILY 90 days aspirin (Adult Aspirin Regimen) 81 mg PO DAILY [id number] 50-325-40 mg 1 tab PO Q6H PRN cyanocobalamin (vitamin B-12) 1,000 mcg PO DAILY 90 days docusate sodium (Colace) 200 mg (2 x 100 mg) PO BEDTIME 90 days fluticasone propionate 110 mcg/actuation (Flovent HFA) 1 puff inhalation BID 90 days levonorgestrel (Mirena) intrauterine liraglutide (weight loss) (Saxenda) inject subcutaneously once daily: week 1 = 0.6 mg; week 2 = 1.2 mg; week 3 = 1.8 mg; week 4 = 2.4 mg; then 3 mg daily subcut losartan 100 mg PO DAILY 30 days polyethylene glycol 3350 (Miralax) 17 grams PO DAILY propranolol 10 mg PO BID [Rollator with seat and seat As directed] Tobacco use date assessed: 07/23/22 Dental Screening Dental Screen Date: 01/29/23 Did you have a dental visit in the last 12 months?: Yes Did you have a dental problem in the last 6 months where you did not have access to dental care?: No Was dental information given to patient?: Patient has dentist HPI PE HPI Details 37-year-old morbidly obese female with b ipolar disorder hypertension GERD last seen in June 2022. Patient is here for physical exam. Review of the notes has seen cardiology November 2022 for the chest pain through Telehealth had a stress test echocardiogram was pending. Patient also has obstructive sleep apnea has started to use the CPAP continuing with the inhalers for the asthma. FOR[facility]LY [facility], [facility] Medical History (Updated 01/29/23 @ 11:49 by Atif Milian MD) Asthma Left ovarian cyst Breakthrough bleeding associated with intrauterine device (IUD) Morbid obesity due to excess calories Exposure to hepatitis C Insomnia Migraine GERD (gastroesophageal reflux disease) Peripheral vascular disease Iron deficiency anemia Irregular menses Well woman exam with routine gynecological exam Obstructive sleep apnea Fibromyalgia Tension headache Bipolar 1 disorder Asthma Hypertension Surgical History Hx of tubal ligation Family History Father Hypertension Lymphoma Myocardial infarct Diabetes mellitus Mother Epilepsy Asthma Sleep apnea Bipolar disorder Colon polyps Maternal Grandmother Diabetes mellitus Paternal Grandfather Pancreatic cancer Myocardial infarct Paternal Aunt Breast CA Sister No problems noted. Sister No problems noted. Brother Myocardial infarct Brother No problems noted. Daughter Seizure Anxiety Depression Asthma Migraine Daughter ADHD Daughter No problems noted. Paternal Uncle Schizophrenia Social History Housing: Apartment Alcohol intake: never Patient Tobacco Use Status: Former Tobacco user Tobacco use type: Cigarette Years Smoked: 2010 stopped e-Cigarette/Vaping Use: Never Used Second Hand Smoke Exposure: No service: No Current occupational status: employed Sexual orientation: Straight/Heterosexual Gender identity: Female Cognitive needs: No Hearing needs: No Vision needs: No Female Reproductive History Menstrual Age of Menarche: 10 Questionnaire PHQ-9 Over the last 2 weeks, how often have you been bothered by any of the following problems? 1. Little interest or pleasure in doing things: several days 2. Feeling down, depressed, or hopeless: several days 3. Trouble falling or staying asleep, or sleeping too much: not at all 4. Feeling tired or having little energy: not at all 5. Poor appetite or overeating: not at all 6. Feeling bad about yourself - or that you are a failure or have let yourself or your family down: not at all 7. Trouble concentrating on things, such as reading the newspaper or watching television: not at all 8. Moving or speaking so slowly that other people could have noticed. Or the opposite - being so fidgety or restless that you have been moving around a lot more than usual: not at all 9. Thoughts that you would be better off or of hurting yourself in some way: not at all Total score: 2 Depression Screening Interpretation: Negative Depression Screening Done: Yes 67608 - PHQ-9 Billing: Yes Source: Developed by Drs. Dakotah Faustin, Bonilla Maradiaga and colleagues, with an educational berhane from [employer]. Thrive Questionnaire Date Thrive assessed: 05/25/22 AUDIT C Alcohol Use Questionnaire (AUDIT-C) 1. How often do you have a drink containing alcohol?: Never 2. How many drinks containing alcohol do you have on a typical day when you are drinking?: 1 or 2 (0) 3. How often do you have six or more drinks on one occasion?: Never Total Score: 0 Score Reviewed/Action Taken: No JORI-7 AMB Questionnaire JORI-7 Date JORI - 7 assessed: 05/25/22 Source: Developed by Drs. Dakotah Faustin, Bonilla Maradiaga and colleagues, with an educational berhane from [employer]. Review of Systems Const Denies poor appetite and Denies weakness Eyes Denies no additional complaints ENT Reports Normal hearing present, Denies dizziness, Denies nasal congestion, Den ies tinnitus and Denies sore throat Card Denies chest pain, Denies syncope, Denies rapid heart rate and Denies dyspnea Resp Denies cough and Denies dyspnea GI Denies change in stool character, Reports constipation, Denies diarrhea, Denies nausea and Denies vomiting Denies urinary frequency, Denies difficulty voiding and Denies dysuria Neuro Reports Normal hearing present, Denies confusion, Denies dizziness, Denies syncope and Denies weakness Psych Denies confusion Physical exam (Primary Care) Vital Signs: Last Vital Signs Pulse 85 01/29/23 11:13 BP 136/74 01/29/23 11:13 Pulse Ox 98 01/29/23 11:13 Oxygen Delivery Method Room Air 01/29/23 11:13 BMI result Body Mass Index 54.1 Tobacco/Smoking Status: Tobacco use Status Tobacco use date assessed 07/23/22 01/29/23 11:15 Patient Tobacco Use Status Former Tobacco user 01/29/23 11:15 Tobacco use type Cigarette 01/29/23 11:15 e-Cigarette/Vaping Use Never Used 01/29/23 11:15 PHQ-9: PHQ-9 Score PHQ-9: Total score 2 01/29/23 11:43 Depression Screening Interpretation: Negative Thrive Assessment: Date of Thrive Assessment Date Thrive assessed 05/25/22 01/29/23 11:15 Const General: No confusion Orientation/consciousness: No confusion HENMT Head: Yes normocephalic Ears: external ears normal and TM's normal bilaterally Face and sinus: Yes normal facial exam Mouth: moist mucous membranes Throat: Yes tonsils normal Eyes Conjunctivae: conjunctivae normal Pupils: Equal, round and reactive pupils present and Pupil accommodation reflex normal Direct Ophthalmoscopy: normal light reflex Neck Neck: No lymphadenopathy Thyroid: Thyroid normal Chest Chest palpation & inspection: normal inspection of the chest Resp Effort & Inspection: normal respiratory effort and no audible wheezes Auscultation: clear to auscultation bilaterally, no crackles, no wheezes and lung sounds not diminished Cardio Rate: regular rate Rhythm: regular rhythm Peripheral pulses: radial pulses present and dorsalis pedis present GI Palpation (GI): no masses Auscultation: normal bowel sounds and normoactive bowel sounds Rectal Exam - Female: deferred Skin General skin exam: no rashes or lesions noted Rashes: no rashes Neuro General: No confusion Cranial nerves: Yes Equal, round and reactive pupils present and Yes Normal hearing present Cognition (Neuro): normal cognition Gait exam (Neuro): Normal gait present Motor exam (neuro): 5/5 motor strength present throughout Deep tendon reflexes (DTR's): Right brachioradialis reflex intensity grade: 2+, Left brachioradialis reflex intensity grade: 2+, Right patellar reflex intensity grade: 2+ and Left patellar reflex intensity grade: 2+ Extrem General: No edema Office Procedures Flu Questionnaire Does the patient have a severe egg allergy?: No Does the patient have severe life threatening allergies?: No Does the patient have a fever or illness today?: No Has the patient ever had Guillain-Vanleer Syndrome?: No Has the patient ever had any past reaction to a flu shot?: No Immunizations flu vacc [id number] 6mos up(PF) 60 mcg(15 mcgx4)/0.5 mL IM syringe Performing Provider: Atif Milian MD [facility] Documented (not given) by: Laila Marin CMA on 01/29/23 11:44 Reason Not Given: Patient Refused Assessment and Plan Assessment & Plan (1) Annual physical exam: Code(s): Z00.00 - Encounter for general adult medical examination without abnormal findings (2) Asthma: Comment: Mild intermittent Code(s): J45.909 - Unspecified asthma, uncomplicated Plan: Continue with the inhaler patient follows up with Pulmonary (3) Morbid obesity: Comment: LONGSTANDING HISTORY OF MORBID OBESITY, CURRENTLY IN WEIGHT MANAGEMENT PROGRAM, Code(s): E66.01 - Morbid (severe) obesity due to excess calories Plan: Diet and exercise (4) Obstructive sleep apnea: Comment: SHE HAS HAD MODERATE HE HAS SEVERE OBSTRUCTIVE SLEEP APNEA, CONFIRMED WITH THE SLEEP STUDIES IN 2018 AND 2020. HAS BEEN TREATED WITH CPAP., WHICH SHE DID NOT USE FOR ABOUT A YEAR. LAST SLEEP STUDY IN NOVEMBER 2021 SHOWS A MILD DEGREE OF ROCIO. BUT SHE DOES HAVE ASSOCIATED COMORBID CONDITIONS, AND WOULD BENEFIT FROM THE USE OF CPAP. PATIENT HAS STARTED USING THE CPAP ALREADY, WITH PRESSURE SETTING AUTO PAP MODE 5-20 CMS , USING FULLFACE MASK. SHE IS WELL VERSED WITH THE USE OF CPAP. WE WILL CONTACT DME PROVIDER AND, DOWNLOAD HER COMPLIANCE DATA. Code(s): G47.33 - Obstructive sleep apnea (adult) (pediatric) Plan: Continue to use the CPAP more than 4 hours a night and benefits from this (5) Hypertension: Code(s): I10 - Essential (primary) hypertension Qualifiers: Hypertension type: essential hypertension Qualified Code(s): I10 - Essential (primary) hypertension Plan: Continue with blood pressure medication. Decrease salt intake and exercise patient is on losartan 100 mg once a day and propranolol 10 mg twice a day (6) GERD (gastroesophageal reflux disease): Code(s): K21.9 - Gastro-esophageal reflux disease without esophagitis Qualifiers: Esophagitis presence: without esophagitis Qualified Code(s): K21.9 - Gastro-esophageal reflux disease without esophagitis Plan: Avoid the foods that causes that usually spicy foods, tomato products, juices, coffee, soda and foods that your sensitive to. After eating do not lie down, allow 3-4 hours before in lie down. And keep the head of bed above 30 degrees to avoid the acid from going up. (7) Bipolar 1 disorder: Comment: Anxiety disorder, PTSD, panic attacks, BHN (07/2021) FOR THIS REASON ALSO IT IS BETTER FOR HER TO USE THE CPAP. Code(s): F31.9 - Bipolar disorder, unspecified Plan: Patient is advised to follow-up with counseling and therapy (8) Dysphagia: Code(s): R13.10 - Dysphagia, unspecified Orders: Orders Influenza [id number] Immunization Today Z23 - Encounter for immunization [place] upper GI w Ba Swallow Today R13.10 - Dysphagia, unspecified Medications: New liraglutide (weight loss) (Saxenda) inject subcutaneously once daily: week 1 = 0.6 mg; week 2 = 1.2 mg; week 3 = 1.8 mg; week 4 = 2.4 mg; then 3 mg daily subcut 15 mL 0RF E66.01 - Morbid (severe) obesity due to excess calories Coding Level of Care Code Est Pt Prev Care [id number]) Diagnoses Annual physical exam Z00.00 Asthma J45.909 Morbid obesity E66.01 Obstructive sleep apnea G47.33 Essential hypertension I10 Hypertension type: essential hypertension Gastroesophageal reflux disease without esophagitis K21.9 Esophagitis presence: without esophagitis Bipolar 1 disorder F31.9 Dysphagia R13.10
== END 2023-01-29 12:01 | disposition home or self-care (01) ==
PROVIDERS: Visit Provider Internal Medicine
DX: Z00.00 Encounter for general adult medical examination without abnormal findings (principal); E66.01 Morbid (severe) obesity due to excess calories; F31.9 Bipolar disorder, unspecified; Z68.43 Body mass index [BMI] 50.0-59.9, adult; J45.909 Unspecified asthma, uncomplicated; G47.33 Obstructive sleep apnea (adult) (pediatric); I10 Essential (primary) hypertension; K21.9 Gastro-esophageal reflux disease without esophagitis; R13.10 Dysphagia, unspecified
CPT/HCPCS: 99395

== ENCOUNTER 2023-02-11 11:27 | Outpatient (AMB) | payer OTHER, SELFPAY ==
[2023-02-11 12:49] VITALS: BP 130/76; PULSE 85; TEMP 36.7; O2SAT 98; BMI 54.1
--- NOTE | 2023-02-11 12:49 | MHC.OFFWIV ---
Intake Vital Signs 02/11/23 12:49 Height 5 ft Weight 277 lb BMI 54.1 BP 130/76 Blood Pressure Location Lt brachial Position Sitting Pulse 85 Pulse Source Pulse Oximeter Temp 98.0 F Temp Source Temporal Artery Scan Pulse Oximetry (%) 98 Intake Visit Reasons: EP RT ear pain/back pain (lobby) Intake Note: pt is here for c/o ear pain and back pain 1 week Patient Tobacco Use Status: Former Tobacco user Allergies Iodinated Contrast Media [CONTRAST, IV] Allergy (Severe, Verified 02/11/23 13:23) Anaphylaxis bee pollen [bee stings] Allergy (Unknown, Verified 02/11/23 13:23) edema Benadryl Allergy (Unknown, Verified 02/11/23 13:23) edema, swelling citalopram [Celexa] Allergy (Unknown, Verified 02/11/23 13:23) edema hydrochlorothiazide Allergy (Unknown, Verified 02/11/23 13:23) unknown latex Allergy (Unknown, Verified 02/11/23 13:23) Swelling prednisolone Allergy (Unknown, Verified 02/11/23 13:23) unknown seafood Allergy (Unknown, Verified 02/11/23 13:23) Hives shellfish derived Allergy (Unknown, Verified 02/11/23 13:23) Swelling tramadol Allergy (Unknown, Verified 02/11/23 13:23) hives sertraline Adverse Reaction (Intermediate, Verified 02/11/23 13:23) confused, yaya Diamox Sequels Adverse Reaction (Unknown, Verified 02/11/23 13:23) pain/tingling lisinopril Adverse Reaction (Unknown, Verified 02/11/23 13:23) dizziness Do you need a note to return to daycare/school/sports/work: Yes HPI EP RT ear pain/back pain (lobby) HPI Details Patient presents to the office for a sick visit. Complaining of lower back pain for the past week. No history of fall or trauma prior to the onset of symptoms. No urinary incontinence. No fevers or chills. Pain is worse on bending forwards or sideways. Relieve done sitting down. Pain is radiating into the gluteal area. [facility] Medical History (Updated 02/11/23 @ 13:24 by Beniot Wheatley MD) Asthma Left ovarian cyst Breakthrough bleeding associated with intrauterine device (IUD) Morbid obesity due to excess calories Exposure to hepatitis C Insomnia Migraine GERD (gastroesophageal reflux disease) Peripheral vascular disease Iron deficiency anemia Irregular menses Well woman exam with routine gynecological exam Obstructive sleep apnea Fibromyalgia Tension headache Bipolar 1 disorder Asthma Hypertension Surgical History Hx of tubal ligation Family History Father Hypertension Lymphoma Myocardial infarct Diabetes mellitus Mother Epilepsy Asthma Sleep apnea Bipolar disorder Colon polyps Maternal Grandmother Diabetes mellitus Paternal Grandfather Pancreatic cancer Myocardial infarct Paternal Aunt Breast CA Sister No problems noted. Sister No problems noted. Brother Myocardial infarct Brother No problems noted. Daughter Seizure Anxiety Depression Asthma Migraine Daughter ADHD Daughter No problems noted. Paternal Uncle Schizophrenia Social History Housing: Apartment Alcohol intake: never Patient Tobacco Use Status: Former Tobacco user Tobacco use type: Cigarette Years Smoked: 2010 stopped e-Cigarette/Vaping Use: Never Used Second Hand Smoke Exposure: No service: No Current occupational status: employed Sexual orientation: Straight/Heterosexual Gender identity: Female Cognitive needs: No Hearing needs: No Vision needs: No Female Reproductive History Menstrual Age of Menarche: 10 Physical Exam Vital Signs: Last Vital Signs Temp 98.0 F 02/11/23 12:49 Pulse 85 02/11/23 12:49 BP 130/76 02/11/23 12:49 Pulse Ox 98 02/11/23 12:49 BMI result Body Mass Index 54.1 Back/Spine/Pelvis Other: Back: No spinal tenderness, no paraspinal spasm. Assessment & Plan Assessment & Plan (1) Lower thoracic back pain: Code(s): M54.6 - Pain in thoracic spine Plan: Meloxicam and cyclobenzaprine called in. . Patient was advised rest. Note for work if necessary provided. Once pain symptoms subside, patient should start physical therapy. If symptoms worsen to follow-up here. Coding Level of Care Code Est Pt Level 3 (30687) Diagnoses Lower thoracic back pain M54.6
== END 2023-02-11 14:15 | disposition home or self-care (01) ==
PROVIDERS: PCP Internal Medicine; Visit Provider Internal Medicine
DX: M54.6 Pain in thoracic spine (principal)
CPT/HCPCS: 99213

== ENCOUNTER 2023-04-17 09:55 | Outpatient (REF) | payer OTHER, SELFPAY ==
--- NOTE | ~2023-04-17 | FL_ITS ---
EXAMINATION: XR FLUOROSCOPY UPPER GI WITH AIR CLINICAL INFORMATION: Dysphasia, reflux COMPARISON: None TECHNIQUE: Fluoroscopic air contrast upper GI examination was performed utilizing standard techniques with thin and thick barium and effervescent granules. Numerous spot images were obtained. FINDINGS: Lateral cine images of the oropharynx and hypopharynx demonstrate normal swallow mechanism with normal epiglottic inversion and soft palate elevation. No tracheal penetration, glottic or subglottic aspiration identified. No nasopharyngeal reflux present. Hypopharyngeal structures appear normal without evidence of mass or diverticulum. There was no significant cricopharyngeal achalasia. Dual and single contrast images of the esophagus demonstrate normal caliber, contour, and mucosal pattern. No evidence of stricture, mass, or ulcerations identified. Esophageal peristalsis was normal. A small type I hiatal hernia is present. Gastroesophageal reflux is seen up to the thoracic inlet.. Dual contrast and single contrast images of the stomach demonstrated normal contour and mucosal pattern without evidence of mass, ulceration, or other abnormality. Contrast freely passed into the gastric antrum and duodenal bulb without delay. Single and air-contrast images of the duodenal bulb demonstrate no abnormality. The duodenal sweep has a normal appearance, course, and mucosal fold appearance. The imaged proximal jejunum has a normal fold pattern and caliber. FLUOROSCOPY TIME: 3 minutes 30 seconds Number of Spot Images: 12 Number of Cine: 10 DOSE AREA PRODUCT: 3120 uGy-m2 (microgray-meter squared) FL/FL upper GI w Ba Swallow IMPRESSION: 1. Small type I hiatal hernia 2. Significant gastroesophageal reflux This procedure was performed by Adelso Rodriguez PA-C, and supervised by Dr. Sevilla
== END 2023-04-17 09:56 | disposition home or self-care (01) ==
LOC: HO.XRAY 09:55
PROVIDERS: PCP Internal Medicine; Visit Provider Internal Medicine
DX: R13.10 Dysphagia, unspecified (principal)
CPT/HCPCS: 74240

== ENCOUNTER → 2023-04-17 09:58 | Outpatient (BNV) | payer OTHER, SELFPAY | PROVIDERS: PCP Internal Medicine; Visit Provider Radiology Diagnostic Radiology | DX: R13.10 Dysphagia, unspecified (principal); K21.9 Gastro-esophageal reflux disease without esophagitis | CPT/HCPCS: 74246 ==

== ENCOUNTER 2023-06-05 14:50 | Outpatient (AMB) | payer OTHER, SELFPAY ==
--- NOTE | 2023-06-05 15:04 | A.OFFVIS_ITS ---
Intake Vital Signs 06/05/23 15:16 Height 5 ft Weight 275 lb BMI 53.7 Pulse 78 Pulse Source Pulse Oximeter Intake Visit Reasons: Overdue f/u appt for APAP-Confirmed Intake Note: Patient presents for follow up. Im not using the machine everyday,when it bothers me I take it off. Allergies Iodinated Contrast Media [CONTRAST, IV] Allergy (Severe, Verified 06/05/23 15:17) Anaphylaxis bee pollen [bee stings] Allergy (Unknown, Verified 06/05/23 15:17) edema Benadryl Allergy (Unknown, Verified 06/05/23 15:17) edema, swelling citalopram [Celexa] Allergy (Unknown, Verified 06/05/23 15:17) edema hydrochlorothiazide Allergy (Unknown, Verified 06/05/23 15:17) unknown latex Allergy (Unknown, Verified 06/05/23 15:17) Swelling prednisolone Allergy (Unknown, Verified 06/05/23 15:17) unknown seafood Allergy (Unknown, Verified 06/05/23 15:17) Hives shellfish derived Allergy (Unknown, Verified 06/05/23 15:17) Swelling tramadol Allergy (Unknown, Verified 06/05/23 15:17) hives sertraline Adverse Reaction (Intermediate, Verified 06/05/23 15:17) confused, yaya Diamox Sequels Adverse Reaction (Unknown, Verified 06/05/23 15:17) pain/tingling lisinopril Adverse Reaction (Unknown, Verified 06/05/23 15:17) dizziness Medication List - Last Reconciled 06/05/23 by MISA Avalos acetazolamide 125 mg PO TID 30 days albuterol sulfate 90 mcg/actuation (Ventolin HFA) 2 puffs inhalation Q6H PRN ascorbate calcium (vitamin C) 500 mg PO DAILY 90 days aspirin (Adult Aspirin Regimen) 81 mg PO DAILY [id number]-ehjbatygdlrzw-[id number] 50-325-40 mg 1 tab PO Q6H PRN cyanocobalamin (vitamin B-12) 1,000 mcg PO DAILY 90 days cyclobenzaprine 10 mg PO BEDTIME docusate sodium (Colace) 200 mg (2 x 100 mg) PO BEDTIME 90 days fluticasone propionate 110 mcg/actuation (Flovent HFA) 1 puff inhalation BID 90 days levonorgestrel (Mirena) intrauterine losartan 100 mg PO DAILY 30 days meloxicam 15 mg PO DAILY polyethylene glycol 3350 (Miralax) 17 grams PO DAILY propranolol 10 mg PO BID [Rollator with seat and seat As directed] semaglutide 0.25 mg (0.368 mL) subcut QWEEK HPI HPI Comments History of Present Illness Details 37-yr-old gorge presents for f/u visit. Last visit was 2 yrs ago. Pt denies any significant interval medical changes. Can have episodes of throbbing on the top of the head, a/w significant off- balance dizziness. Duration- brief up to 3 days. This occurs randomly. When this occurs, she just lays down or uses her rollator to get around. Can have occipital head pressure a/w allodynia, photophobia- this occurs more so at night. Can have random ear ringing a/w loss of balance, ringing tinnitus, photophobia, phonophobia/hyperacusia, nausea. This this occurs about once a month, and duration is 1 week. She was seeing weight management clinic, however this was put on hold pending cardiology clearance. Patient states she has had cardiology clearance, and needs to be referred back She denies any vision changes. Her last eye exam was 1-2 years ago- states was told she still has papilledema. She is only able to take her Acetazolamide once every couple of days, otherwise it causes significant burning and tingling. She is not using anything as needed for her headaches. [facility] Medical History (Updated 06/05/23 @ 18:00 by MISA Avalos) Asthma Left ovarian cyst Breakthrough bleeding associated with intrauterine device (IUD) Morbid obesity due to excess calories Exposure to hepatitis C Insomnia Migraine GERD (gastroesophageal reflux disease) Peripheral vascular disease Iron deficiency anemia Irregular menses Well woman exam with routine gynecological exam Obstructive sleep apnea Fibromyalgia Tension headache Bipolar 1 disorder Asthma Hypertension Surgical History Hx of tubal ligation Family History Father Hypertension Lymphoma Myocardial infarct Diabetes mellitus Mother Epilepsy Asthma Sleep apnea Bipolar disorder Colon polyps Maternal Grandmother Diabetes mellitus Paternal Grandfather Pancreatic cancer Myocardial infarct Paternal Aunt Breast CA Sister No problems noted. Sister No problems noted. Brother Myocardial infarct Brother No problems noted. Daughter Seizure Anxiety Depression Asthma Migraine Daughter ADHD Daughter No problems noted. Paternal Uncle Schizophrenia Social History Housing: Apartment Alcohol intake: never Patient Tobacco Use Status: Former Tobacco user Tobacco use type: Cigarette Years Smoked: 2010 stopped e-Cigarette/Vaping Use: Never Used Second Hand Smoke Exposure: No service: No Current occupational status: employed Sexual orientation: Straight/Heterosexual Gender identity: Female Cognitive needs: No Hearing needs: No Vision needs: No Female Reproductive History Menstrual Age of Menarche: 10 Physical Exam Vital Signs: Last Vital Signs Pulse 78 06/05/23 15:16 BMI result Body Mass Index 53.7 Const General: cooperative and no acute distress Orientation/consciousness: patient oriented x3 Resp Effort & Inspection: normal respiratory effort and able to speak in complete sentences Neuro General: patient oriented x3 Cranial nerves: Yes CN's II-XII intact bilaterally Cognition (Neuro): normal cognition Psych Appearance: grossly normal Mental Status: mental status grossly normal Speech and movement: Normal speech and movement present Affect: normal affect Attitude: cooperative Assessment & Plan Assessment & Plan (1) Idiopathic intracranial hypertension: Comment: since 2003 Code(s): G93.2 - Benign intracranial hypertension (2) Migraine: Comment: also nocturnal occipital region pressure type headache Code(s): G43.909 - Migraine, unspecified, not intractable, without status migrainosus (3) Morbid obesity: Comment: LONGSTANDING HISTORY OF MORBID OBESITY, Code(s): E66.01 - Morbid (severe) obesity due to excess calories Plan For IIH/migraine- Hold Acetazolamide- causes paresthesias. Start furosemide 20 mg daily Patient advised to have follow-up eye exam. Will refer back to weight management. Check CBC and CMP. Previous trials: Topiramate caused tingling. For migraine prevention: Started Emgality 240 mg x 1 days, followed by 120 mg subcu q.month for maintenance does Previous trials: Topiramate caused tingling, propranolol not tolerated, amitriptyline marked tolerated. For acute migraine treatment: Retrial sumatriptan 100 mg p.r.n., may repeat x1 in 2 hours, max 200 mg per day. Follow-up in 3 months or sooner as needed. Orders: Referrals Medical Weight Management Referral E66.01 - Morbid (severe) obesity due to excess calories, G47.33 - Obstructive sleep apnea (adult) (pediatric), G93.2 - Benign intracranial hypertension Medications: New furosemide 20 mg PO DAILY 30 days 30 tabs 3RF galcanezumab-gnlm (Emgality Pen) Loading dose 240 mg x 1, followed by maintenance dose 120 mg subcu q.month 240 mg (2 mL) subcut ONCE 30 days 1 mL 0RF G43.909 - Migraine, unspecified, not intractable, without status migrainosus sumatriptan succinate (0.5 - 1 x 100 mg) 50 - 100 mg orally at onset of headache, may repeat in 2 hrs PRN; max 2 tabs per day or 4 tabs/week (may take with Ibuprofen) 30 days 12 tabs 6RF migraine headache Discontinued acetazolamide Discontinued Reason: Doctor's Order 125 mg PO TID 30 days 90 tabs 3RF G93.2 - Benign intracranial hypertension Coding Level of Care Code Est Pt Level 4 (21776) Diagnoses Idiopathic intracranial hypertension G93.2 Migraine G43.909 Morbid obesity E66.01
[2023-06-05 15:16] VITALS: PULSE 78; BMI 53.7
== END 2023-06-05 16:01 | disposition home or self-care (01) ==
PROVIDERS: PCP Internal Medicine; Visit Provider Nurse Practitioner Family
DX: G93.2 Benign intracranial hypertension (principal); G43.909 Migraine, unspecified, not intractable, without status migrainosus; E66.01 Morbid (severe) obesity due to excess calories
CPT/HCPCS: 99214

== ENCOUNTER → 2023-06-05 14:50 | Outpatient (BNVA) | payer OTHER, SELFPAY | PROVIDERS: PCP Internal Medicine; Visit Provider Nurse Practitioner Family | DX: G43.909 Migraine, unspecified, not intractable, without status migrainosus (principal); G93.2 Benign intracranial hypertension; E66.01 Morbid (severe) obesity due to excess calories | CPT/HCPCS: 99212 ==

== ENCOUNTER → 2023-07-19 09:55 | Outpatient (BNVA) | payer OTHER, SELFPAY | PROVIDERS: PCP Internal Medicine; Visit Provider Physician Assistant ==

== ENCOUNTER 2023-08-27 15:55 | Outpatient (AMB) | payer OTHER, SELFPAY ==
--- NOTE | 2023-08-27 15:51 | MHC.PC.OV ---
Vital Signs 08/27/23 15:55 Height 5 ft Intake Visit Reasons: 3 month f/u Meds Allergies Iodinated Contrast Media [CONTRAST, IV] Allergy (Severe, Verified 07/19/23 10:55) Anaphylaxis bee pollen [bee stings] Allergy (Unknown, Verified 07/19/23 10:55) edema Benadryl Allergy (Unknown, Verified 07/19/23 10:55) edema, swelling citalopram [Celexa] Allergy (Unknown, Verified 07/19/23 10:55) edema hydrochlorothiazide Allergy (Unknown, Verified 07/19/23 10:55) unknown latex Allergy (Unknown, Verified 07/19/23 10:55) Swelling prednisolone Allergy (Unknown, Verified 07/19/23 10:55) unknown seafood Allergy (Unknown, Verified 07/19/23 10:55) Hives shellfish derived Allergy (Unknown, Verified 07/19/23 10:55) Swelling tramadol Allergy (Unknown, Verified 07/19/23 10:55) hives cefpodoxime Adverse Reaction (Intermediate, Unverified 08/27/23 17:52) bradycardia, no energy sertraline Adverse Reaction (Intermediate, Verified 07/19/23 10:55) confused, yaya Diamox Sequels Adverse Reaction (Unknown, Verified 07/19/23 10:55) pain/tingling lisinopril Adverse Reaction (Unknown, Verified 07/19/23 10:55) dizziness Tobacco use date assessed: 07/23/22 Dental Screening Dental Screen Date: 08/27/23 Did you have a dental visit in the last 12 months?: No Did you have a dental problem in the last 6 months where you did not have access to dental care?: No Was dental information given to patient?: Patient has dentist HPI 3 month f/u Meds HPI Details 37-year-old morbidly obese female with a history of asthma obstructive sleep apnea hypertension GERD bipolar disorder coming in for follow-up through Telehealth last seen in January 2023 for physical exam. Review of the notes Urgent Center May 2023 for bilateral flank pain diagnosis of UTI and was treated with cefpodoxime CT was done negative patient also complains of severe headache and was sent to Neurology diagnosis idiopathic intracranial hypertension since 2003 advised to hold acetazolamide since causing paresthesias and start on furosemide 20 mg once a day Emgality prescribed 120 mg subcutaneous month lead does and sumatriptan. Patient had some dysphagia and an upper GI series as well as swallow done revealing small type 1 hiatal hernia with significant gastroesophageal reflux disease. Patient had an echocardiogram in January 2023 revealing left ventricular size normal mild left ventricular hypertrophy ejection fraction of 60-65% no wall motion abnormality. Trace mitral regurg. BP advisd to see me here for the BP [facility] Medical History (Updated 08/27/23 @ 17:52 by Atif Milian MD) Asthma Left ovarian cyst Breakthrough bleeding associated with intrauterine device (IUD) Morbid obesity due to excess calories Exposure to hepatitis C Insomnia Migraine GERD (gastroesophageal reflux disease) Peripheral vascular disease Iron deficiency anemia Irregular menses Well woman exam with routine gynecological exam Obstructive sleep apnea Fibromyalgia Tension headache Bipolar 1 disorder Asthma Hypertension Surgical History Hx of tubal ligation Family History Father Hypertension Lymphoma Myocardial infarct Diabetes mellitus Mother Epilepsy Asthma Sleep apnea Bipolar disorder Colon polyps Maternal Grandmother Diabetes mellitus Paternal Grandfather Pancreatic cancer Myocardial infarct Paternal Aunt Breast CA Sister No problems noted. Sister No problems noted. Brother Myocardial infarct Brother No problems noted. Daughter Seizure Anxiety Depression Asthma Migraine Daughter ADHD Daughter No problems noted. Paternal Uncle Schizophrenia Social History Housing: Apartment Alcohol intake: never Patient Tobacco Use Status: Former Tobacco user Tobacco use type: Cigarette Years Smoked: 2010 stopped e-Cigarette/Vaping Use: Never Used Second Hand Smoke Exposure: No service: No Current occupational status: employed Sexual orientation: Straight/Heterosexual Gender identity: Female Cognitive needs: No Hearing needs: No Vision needs: No Female Reproductive History Menstrual Age of Menarche: 10 Questionnaire Thrive Questionnaire Date Thrive assessed: 08/27/23 I am a: Patient What is your living situation today?: I have a steady place to live Within the past 12 months, did the food you bought not last and you didn't have the money to get more?: Never true Within the past 12 months, did you worry whether your food would run out before you got money to buy more?: Never true Do you have trouble paying for medicines?: No Do you have trouble getting transportation to medical appointments?: No Do you have trouble paying your heating and electricity bill?: No Do you have trouble taking care of your child, family member or friend?: No Do you have trouble with day-to-day activities such as bathing, preparing meals, shopping, managing finances, etc.?: No Are you currently unemployed and looking for a job?: No Are you interested in more education?: No Please select the resources that you would like help with: None THRIVE Score: 0 AUDIT C Alcohol Use Questionnaire (AUDIT-C) 1. How often do you have a drink containing alcohol?: Never 2. How many drinks containing alcohol do you have on a typical day when you are drinking?: 1 or 2 (0) 3. How often do you have six or more drinks on one occasion?: Never Total Score: 0 Score Reviewed/Action Taken: No JORI-7 AMB Questionnaire JORI-7 Date JORI - 7 assessed: 08/27/23 Feeling nervous, anxious, or on edge: 0 = Not at all Not being able to stop or control worryin = Not at all Worrying too much about different things: 0 = Not at all Trouble relaxin = Not at all Being so restless that it is hard to sit still: 0 = Not at all Becoming easily annoyed or irritable: 0 = Not at all Feeling afraid as if something awful might happen: 0 = Not at all Total JORI-7 score (0-4 normal; 5-9 mild; 10-14 moderate; 15-21 severe): 0 Source: Developed by Drs. Dakotah Faustin, Shaylee Giron, Bonilla Gomez and colleagues, with an educational berhane from [employer]. Physical exam (Primary Care) Tobacco/Smoking Status: Tobacco use Status Tobacco use date assessed 07/23/22 08/27/23 15:55 Patient Tobacco Use Status Former Tobacco user 08/27/23 15:55 Tobacco use type Cigarette 08/27/23 15:55 e-Cigarette/Vaping Use Never Used 08/27/23 15:55 PHQ-9: PHQ-9 Score PHQ-9: Total score 2 08/27/23 15:55 Thrive Assessment: Date of Thrive Assessment Date Thrive assessed 08/27/23 08/27/23 15:55 Telehealth Telehealth Telehealth Platform: Telephone Location of provider rendering services: practice address Location of patient: address on file Patient Identification confirmed using: Name, : Yes Telehealth method: voice only Patient verbally consented to treatment: Yes Patient verbally consented to billing insurance company: Yes Patient informed of any privacy concerns related to visit: Yes Minutes spent on Phone/Video with Pt.: 25 Assessment and Plan Assessment & Plan (1) Obesity, morbid, BMI 50 or higher: Code(s): E66.01 - Morbid (severe) obesity due to excess calories Plan: Diet and exercise (2) Asthma: Comment: SHE HAS HAD MILD INTERMITTENT BRONCHIAL ASTHMA, MOST LIKELY SECONDARY TO ENVIRONMENTAL ALLERGIES. [place] : ADVISED TO CONTINUE FLOVENT 110 2 PUFFS B.I.D.. AND USE ALBUTEROL HFA 2 PUFFS Q 4-6 HOURS ONLY P.R.N. Code(s): J45.909 - Unspecified asthma, uncomplicated Plan: Continue with the inhaler as needed (3) Chronic migraine w/o aura w/o status migrainosus, not intractable: Code(s): G43.709 - Chronic migraine without aura, not intractable, without status migrainosus Plan: Patient was referred to Neurology and has been treated with migraine medication Emgality and sumatriptan and because of the intracranial hypertension was given furosemide (4) Bipolar 1 disorder: Comment: Anxiety disorder, PTSD, panic attacks, BHN (07/2021) FOR THIS REASON ALSO IT IS BETTER FOR HER TO USE THE CPAP. Code(s): F31.9 - Bipolar disorder, unspecified Plan: Continue with counseling and therapy (5) Obstructive sleep apnea: Comment: SHE HAS HAD MODERATE HE HAS SEVERE OBSTRUCTIVE SLEEP APNEA, CONFIRMED WITH THE SLEEP STUDIES IN 2018 AND 2020. HAS BEEN TREATED WITH CPAP., WHICH SHE DID NOT USE FOR ABOUT A YEAR. LAST SLEEP STUDY IN NOVEMBER 2021 SHOWS A MILD DEGREE OF ROCIO. BUT SHE DOES HAVE ASSOCIATED COMORBID CONDITIONS, AND WOULD BENEFIT FROM THE USE OF CPAP. PATIENT HAS STARTED USING THE CPAP ALREADY, WITH PRESSURE SETTING AUTO PAP MODE 5-20 CMS , USING FULLFACE MASK. SHE IS WELL VERSED WITH THE USE OF CPAP. WE WILL CONTACT DME PROVIDER AND, DOWNLOAD HER COMPLIANCE DATA. Code(s): G47.33 - Obstructive sleep apnea (adult) (pediatric) Plan: Discussed importance of treating obstructive sleep apnea (6) Hypertension: Code(s): I10 - Essential (primary) hypertension Qualifiers: Hypertension type: essential hypertension Qualified Code(s): I10 - Essential (primary) hypertension Plan: Continue with blood pressure medication. Decrease salt intake and exercise propranolol 10 mg twice a day losartan 100 mg once a day (7) GERD (gastroesophageal reflux disease): Code(s): K21.9 - Gastro-esophageal reflux disease without esophagitis Qualifiers: Esophagitis presence: without esophagitis Qualified Code(s): K21.9 - Gastro-esophageal reflux disease without esophagitis Plan: Avoid the foods that causes that usually spicy foods, tomato products, juices, coffee, soda and foods that your sensitive to. After eating do not lie down, allow 3-4 hours before in lie down. And keep the head of bed above 30 degrees to avoid the acid from going up. (8) UTI (urinary tract infection): Code(s): N39.0 - Urinary tract infection, site not specified Plan: Urinalysis requested. Patient had side effects from the medication and did not finish. Orders: Orders UA CC w/rflx Micro + Cult Today N39.0 - Urinary tract infection, site not specified, R30.0 - Dysuria Medications: New omeprazole 20 mg PO DAILY 30 caps 1RF K21.9 - Gastro-esophageal reflux disease without esophagitis Coding Level of Care Code Tele Est Pt Level 4 (04290) Diagnoses Obesity, morbid, BMI 50 or higher E66.01 Asthma J45.909 Chronic migraine w/o aura w/o status migrainosus, not intractable G43.709 Bipolar 1 disorder F31.9 Obstructive sleep apnea G47.33 Essential hypertension I10 Hypertension type: essential hypertension Gastroesophageal reflux disease without esophagitis K21.9 Esophagitis presence: without esophagitis UTI (urinary tract infection) N39.0
== END 2023-08-27 17:28 | disposition home or self-care (01) ==
LOC: HO.HMGH 15:56
PROVIDERS: PCP Internal Medicine; Visit Provider Internal Medicine
DX: J45.909 Unspecified asthma, uncomplicated (principal); F31.9 Bipolar disorder, unspecified; E66.01 Morbid (severe) obesity due to excess calories; G43.709 Chronic migraine without aura, not intractable, without status migrainosus; G47.33 Obstructive sleep apnea (adult) (pediatric); I10 Essential (primary) hypertension; K21.9 Gastro-esophageal reflux disease without esophagitis; N39.0 Urinary tract infection, site not specified
CPT/HCPCS: 99214

== ENCOUNTER 2023-08-30 16:37 | Outpatient (REF) | payer OTHER, SELFPAY ==
[2023-08-30 17:42] LABS: Influenza A PCR NEGATIVE (Negative); Influenza B PCR NEGATIVE (Negative); Resp Syncy Virus RNA Qual PCR NEGATIVE (Negative); SARS COV2 PCR INHOUSE NEGATIVE (Negative)
== END 2023-08-30 16:38 | disposition home or self-care (01) ==
LOC: HO.LAB 16:37
PROVIDERS: PCP Internal Medicine; Visit Provider Internal Medicine
DX: Z11.52 Encounter for screening for COVID-19 (principal); R09.89 Other specified symptoms and signs involving the circulatory and respiratory systems
CPT/HCPCS: 0241U

== ENCOUNTER 2023-10-25 15:02 | Outpatient (AMB) | payer OTHER, SELFPAY ==
[2023-10-25 15:06] VITALS: BP 162/110; PULSE 90; O2SAT 97; BMI 53.9
--- NOTE | 2023-10-25 15:06 | A.OFFPC_ITS ---
Vital Signs 10/25/23 15:06 Height 5 ft Weight 276 lb BMI 53.9 BP 162/110 H Blood Pressure Location Lt brachial Position Sitting Pulse 90 Pulse Source Pulse Oximeter Pulse Oximetry (%) 97 Oxygen Delivery Method Room Air Intake Visit Reasons: [facility] 09/16 Intake Note: Patient is here for hospital discharge follow up. Patient was discharged from [facility] on 09/17/2023 Allergies Iodinated Contrast Media [CONTRAST, IV] Allergy (Severe, Verified 10/25/23 15:09) Anaphylaxis bee pollen [bee stings] Allergy (Unknown, Verified 10/25/23 15:09) edema Benadryl Allergy (Unknown, Verified 10/25/23 15:09) edema, swelling citalopram [Celexa] Allergy (Unknown, Verified 10/25/23 15:09) edema hydrochlorothiazide Allergy (Unknown, Verified 10/25/23 15:09) unknown latex Allergy (Unknown, Verified 10/25/23 15:09) Swelling prednisolone Allergy (Unknown, Verified 10/25/23 15:09) unknown seafood Allergy (Unknown, Verified 10/25/23 15:09) Hives shellfish derived Allergy (Unknown, Verified 10/25/23 15:09) Swelling tramadol Allergy (Unknown, Verified 10/25/23 15:09) hives cefpodoxime Adverse Reaction (Intermediate, Verified 10/25/23 15:09) bradycardia, no energy sertraline Adverse Reaction (Intermediate, Verified 10/25/23 15:09) confused, yaya Diamox Sequels Adverse Reaction (Unknown, Verified 10/25/23 15:09) pain/tingling lisinopril Adverse Reaction (Unknown, Verified 10/25/23 15:09) dizziness Tobacco use date assessed: 10/25/23 Dental Screening Dental Screen Date: 08/27/23 HPI [facility] 09/16 HPI Details 37-year-old morbidly obese female with a history of asthma migraine bipolar disorder obstructive sleep apnea hypertension GERD coming in for follow- up. Last seen in 08/17/2023. 05/2023 was in the Er for UTI but now is asymotomatic complains of intermitent [facility] Medical History (Updated 10/25/23 @ 15:31 by Atif Milian MD) Migraine Morbid obesity UTI (urinary tract infection) Breakthrough bleeding associated with intrauterine device (IUD) Asthma Asthma Left ovarian cyst Morbid obesity due to excess calories Exposure to hepatitis C Insomnia GERD (gastroesophageal reflux disease) Peripheral vascular disease Iron deficiency anemia Irregular menses Well woman exam with routine gynecological exam Obstructive sleep apnea Fibromyalgia Tension headache Bipolar 1 disorder Hypertension Surgical History Hx of tubal ligation Family History Father Hypertension Lymphoma Myocardial infarct Diabetes mellitus Mother Epilepsy Asthma Sleep apnea Bipolar disorder Colon polyps Maternal Grandmother Diabetes mellitus Paternal Grandfather Pancreatic cancer Myocardial infarct Paternal Aunt Breast CA Sister No problems noted. Sister No problems noted. Brother Myocardial infarct Brother No problems noted. Daughter Seizure Anxiety Depression Asthma Migraine Daughter ADHD Daughter No problems noted. Paternal Uncle Schizophrenia Social History Housing: Apartment Alcohol intake: never Patient Tobacco Use Status: Former Tobacco user Tobacco use type: Cigarette Years Smoked: 2010 stopped e-Cigarette/Vaping Use: Never Used Second Hand Smoke Exposure: No service: No Current occupational status: employed Sexual orientation: Straight/Heterosexual Gender identity: Female Cognitive needs: No Hearing needs: No Vision needs: No Female Reproductive History Menstrual Age of Menarche: 10 Questionnaire Thrive Questionnaire Date Thrive assessed: 08/27/23 AUDIT C Alcohol Use Questionnaire (AUDIT-C) 1. How often do you have a drink containing alcohol?: Never 2. How many drinks containing alcohol do you have on a typical day when you are drinking?: 1 or 2 (0) 3. How often do you have six or more drinks on one occasion?: Never Total Score: 0 Score Reviewed/Action Taken: No JORI-7 AMB Questionnaire JORI-7 Date JORI - 7 assessed: 08/27/23 Source: Developed by Drs. Dakotah Faustin, Shaylee Giron, Bonilla Gomez and colleagues, with an educational berhane from [employer]. Physical exam (Primary Care) Vital Signs: Last Vital Signs Pulse 90 10/25/23 15:06 BP 162/110 H 10/25/23 15:06 Pulse Ox 97 10/25/23 15:06 Oxygen Delivery Method Room Air 10/25/23 15:06 BMI result Body Mass Index 53.9 Tobacco/Smoking Status: Tobacco use Status Tobacco use date assessed 10/25/23 10/25/23 15:11 Patient Tobacco Use Status Former Tobacco user 10/25/23 15:07 Tobacco use type Cigarette 10/25/23 15:07 e-Cigarette/Vaping Use Never Used 10/25/23 15:07 Thrive Assessment: Date of Thrive Assessment Date Thrive assessed 08/27/23 10/25/23 15:07 Const General: alert; No acute distress Eyes Conjunctivae: conjunctivae normal Resp Auscultation: clear to auscultation bilaterally Cardio Rate: regular rate Rhythm: regular rhythm GI Inspection: Yes normal to inspection Extrem General: Yes normal to inspection and No edema Assessment and Plan Assessment & Plan (1) Obesity, morbid, BMI 50 or higher: Code(s): E66.01 - Morbid (severe) obesity due to excess calories Plan: Diet and exercise (2) Chronic migraine w/o aura w/o status migrainosus, not intractable: Code(s): G43.709 - Chronic migraine without aura, not intractable, without status migrainosus Plan: Patient follows up with Neurology on Emgality and Imitrex (3) Asthma: Comment: SHE HAS HAD MILD INTERMITTENT BRONCHIAL ASTHMA, MOST LIKELY SECONDARY TO ENVIRONMENTAL ALLERGIES. [place] : ADVISED TO CONTINUE FLOVENT 110 2 PUFFS B.I.D.. AND USE ALBUTEROL HFA 2 PUFFS Q 4-6 HOURS ONLY P.R.N. Code(s): J45.909 - Unspecified asthma, uncomplicated Plan: Continue with inhaler. controled (4) Bipolar 1 disorder: Comment: Anxiety disorder, PTSD, panic attacks, [facility] (07/2021) FOR THIS REASON ALSO IT IS BETTER FOR HER TO USE THE CPAP. Code(s): F31.9 - Bipolar disorder, unspecified Plan: Continue with counseling and therapy (5) Hypertension: Code(s): I10 - Essential (primary) hypertension Qualifiers: Hypertension type: essential hypertension Qualified Code(s): I10 - Essential (primary) hypertension Plan: Continue with blood pressure medication. Decrease salt intake and exercise takes losartan 100 mg once a day propranolol 10 mg twice a day (6) GERD (gastroesophageal reflux disease): Code(s): K21.9 - Gastro-esophageal reflux disease without esophagitis Qualifiers: Esophagitis presence: without esophagitis Qualified Code(s): K21.9 - Gastro-esophageal reflux disease without esophagitis Plan: Avoid the foods that causes that usually spicy foods, tomato products, juices, coffee, soda and foods that your sensitive to. After eating do not lie down, allow 3-4 hours before in lie down. And keep the head of bed above 30 degrees to avoid the acid from going up. (7) Recurrent finger dislocation: Code(s): M24.446 - Recurrent dislocation, unspecified finger Orders: Referrals Orthopedics Referral M24.446 - Recurrent dislocation, unspecified finger Medications: New amlodipine 5 mg PO DAILY 30 tabs 3RF I10 - Essential (primary) hypertension Refilled semaglutide for 4 weeks 0.25 mg (0.368 mL) subcut QWEEK 3 mL 0RF M24.446 - Recurrent dislocation, unspecified finger Discontinued propranolol Discontinued Reason: Patient Refused 10 mg PO BID 180 tabs 3RF G43.909 - Migraine, unspecified, not intractable, without status migrainosus, I10 - Essential (primary) hypertension losartan Discontinued Reason: Doctor's Order 100 mg PO DAILY 30 days 90 tabs 2RF I10 - Essential (primary) hypertension Coding Level of Care Code Est Pt Level 4 (16223) Diagnoses Obesity, morbid, BMI 50 or higher E66.01 Chronic migraine w/o aura w/o status migrainosus, not intractable G43.709 Asthma J45.909 Bipolar 1 disorder F31.9 Essential hypertension I10 Hypertension type: essential hypertension Gastroesophageal reflux disease without esophagitis K21.9 Esophagitis presence: without esophagitis Recurrent finger dislocation M24.446
== END 2023-10-25 15:42 | disposition home or self-care (01) ==
PROVIDERS: PCP Internal Medicine; Visit Provider Internal Medicine
DX: G43.709 Chronic migraine without aura, not intractable, without status migrainosus (principal); E66.01 Morbid (severe) obesity due to excess calories; F31.9 Bipolar disorder, unspecified; Z68.43 Body mass index [BMI] 50.0-59.9, adult; J45.909 Unspecified asthma, uncomplicated; I10 Essential (primary) hypertension; K21.9 Gastro-esophageal reflux disease without esophagitis; M24.4 Recurrent dislocation of joint
CPT/HCPCS: 99214

== ENCOUNTER 2023-11-26 10:24 | Outpatient (REF) | payer OTHER, SELFPAY ==
--- NOTE | ~2023-11-26 | XR_ITS ---
EXAMINATION: Bilateral hand series CLINICAL INFORMATION: Pain in both hands COMPARISON: X-rays of both hands July 2017 TECHNIQUE: 3 views of each hand FINDINGS: Right hand: The bones joints and soft tissues are normal. No erosions or degenerative changes. No soft tissue calcifications. No change. Left hand: The bones joints soft tissues are normal. No erosions or degenerative changes. No soft tissue calcifications. No change. XR/XR hand RT min 3V IMPRESSION: RIGHT HAND: Normal. LEFT HAND: Normal.
--- NOTE | ~2023-11-26 | XR_ITS ---
EXAMINATION: Bilateral hand series CLINICAL INFORMATION: Pain in both hands COMPARISON: X-rays of both hands July 2017 TECHNIQUE: 3 views of each hand FINDINGS: Right hand: The bones joints and soft tissues are normal. No erosions or degenerative changes. No soft tissue calcifications. No change. Left hand: The bones joints soft tissues are normal. No erosions or degenerative changes. No soft tissue calcifications. No change. XR/XR hand LT min 3V IMPRESSION: RIGHT HAND: Normal. LEFT HAND: Normal.
== END 2023-11-26 10:25 | disposition home or self-care (01) ==
LOC: HO.HOSX 10:24
PROVIDERS: Visit Provider Orthopaedic Surgery
DX: M79.641 Pain in right hand (principal); M79.642 Pain in left hand
CPT/HCPCS: 73130; 99202

== ENCOUNTER 2023-11-26 15:09 | Outpatient (AMB) | payer OTHER, SELFPAY ==
--- NOTE | 2023-11-26 15:26 | A.OFFVIS_ITS ---
Vital Signs 11/26/23 15:28 Height 5 ft Weight 276 lb BMI 53.9 Intake Visit Reasons: New Pt - B/L thumb dislocation Intake Note: Martha is a 37 yo right hand dominant female who presents today for bilateral thumb dislocation that have been happening at random times for years. Patient denies numbness and tingling. Reports her right finger is locking on. Patient reports bilateral wrist pain as well. She states she takes Tylenol, ibuprofen, or Advil for pain which provides minimal relief. Denies prior injuries or surgeries. Patient also denies OT or PT on the hands. Allergies Iodinated Contrast Media [CONTRAST, IV] Allergy (Severe, Verified 11/26/23 15:28) Anaphylaxis bee pollen [bee stings] Allergy (Unknown, Verified 11/26/23 15:28) edema Benadryl Allergy (Unknown, Verified 11/26/23 15:28) edema, swelling citalopram [Celexa] Allergy (Unknown, Verified 11/26/23 15:28) edema hydrochlorothiazide Allergy (Unknown, Verified 11/26/23 15:28) unknown latex Allergy (Unknown, Verified 11/26/23 15:28) Swelling prednisolone Allergy (Unknown, Verified 11/26/23 15:28) unknown seafood Allergy (Unknown, Verified 11/26/23 15:28) Hives shellfish derived Allergy (Unknown, Verified 11/26/23 15:28) Swelling tramadol Allergy (Unknown, Verified 11/26/23 15:28) hives cefpodoxime Adverse Reaction (Intermediate, Verified 11/26/23 15:28) bradycardia, no energy sertraline Adverse Reaction (Intermediate, Verified 11/26/23 15:28) confused, yaya Diamox Sequels Adverse Reaction (Unknown, Verified 11/26/23 15:28) pain/tingling lisinopril Adverse Reaction (Unknown, Verified 11/26/23 15:28) dizziness HPI HPI New Pt - B/L thumb dislocation: Details: Martha is a 37 year old right hand dominant woman who presents with complaints of bilateral thumb MCP dislocations. She also complaints of bilateral wrist pain and pain throughout her fingers. She reports two incidents of her right thumb MCP joint. The 1st time happened about 8 months ago when she pushed on something with her thumb. The 2nd time happened about 6 months ago when she pushed button with her thumb. She reports that she just pulled on her thumb and did not seek medical attention. Again there was no fall or injury. She also complains of pain in all of her fingers bilaterally, & in her bilateral wrists. She manages this with Tylenol & NSAIDs. She also complains of her right index finger occasional swelling & 1 episode locking in MCP extension with about 40 degrees of PIP flexion. She says this began ~2 weeks ago. She denies any triggering. No fall or injury She denies any numbness or tingling. She denies any injury or prior treatment options. She has a Hx of bipolar disorder & Fibromyalgia. She is seen today with her 10 year old daughter [facility] Medical History (Updated 11/26/23 @ 16:43 by Ofelia Jennings MD) Migraine Morbid obesity UTI (urinary tract infection) Breakthrough bleeding associated with intrauterine device (IUD) Asthma Asthma Left ovarian cyst Morbid obesity due to excess calories Exposure to hepatitis C Insomnia GERD (gastroesophageal reflux disease) Peripheral vascular disease Iron deficiency anemia Irregular menses Well woman exam with routine gynecological exam Obstructive sleep apnea Fibromyalgia Tension headache Bipolar 1 disorder Hypertension Surgical History Hx of tubal ligation Family History Father Hypertension Lymphoma Myocardial infarct Diabetes mellitus Mother Epilepsy Asthma Sleep apnea Bipolar disorder Colon polyps Maternal Grandmother Diabetes mellitus Paternal Grandfather Pancreatic cancer Myocardial infarct Paternal Aunt Breast CA Sister No problems noted. Sister No problems noted. Brother Myocardial infarct Brother No problems noted. Daughter Seizure Anxiety Depression Asthma Migraine Daughter ADHD Daughter No problems noted. Paternal Uncle Schizophrenia Social History (Updated 11/26/23 @ 15:35 by KINGSTON Mendoza) Housing: Apartment Alcohol intake: never Patient Tobacco Use Status: Former Tobacco user Tobacco use type: Cigarette Years Smoked: 2010 stopped e-Cigarette/Vaping Use: Never Used Second Hand Smoke Exposure: No service: No Current occupational status: unemployed Current occupation: rt handed Sexual orientation: Straight/Heterosexual Gender identity: Female Cognitive needs: No Hearing needs: No Vision needs: No Female Reproductive History Menstrual Age of Menarche: 10 Review of Systems Const All systems reviewed & are unremarkable except as noted in HPI and below Physical Exam Vital Signs: BMI result Body Mass Index 53.9 Const General: cooperative, healthy appearing and no acute distress Orientation/consciousness: patient oriented x3 HEENT Head: Yes normocephalic and Yes atraumatic Eyes EOM: EOMs intact bilaterally Resp Effort & Inspection: normal respiratory effort and able to speak in complete sentences Cardio Jugular venous distension: no JVD Skin General skin exam: turgor normal Rashes: no rashes Neuro General: patient oriented x3 Extrem Other: Evaluation of Bilateral Upper Extremity: The patient is alert, oriented, and in no acute distress Neuro: Median, Ulnar, Radial nerves motor and sensory intact and sensation is normal to the tips of all digits Vascular: Cap refill brisk ROM: She can make a fist and extend all her digits No locking or catching No tenderness over the A1 pulleys Normal wrist & thumb ROM bilaterally Thumb IP & MCP joints stable on exam today Mild laxity of the right thumb UCL when compared with the left thumb MCP joint, but with a good end point We could not reproduce the dislocation or abnormal motion in her thumb. Skin: No lacerations or abrasions. General: No Ecchymosis. No Erythema or evidence of infection. Radiographs: 3 views of the left hand were taken and viewed by me today in clinic. They show no fractures, dislocations, or arthritic changes. 3 views of the right hand were taken and viewed by me today in clinic. They show no fractures, dislocations, or arthritic changes. Psych Appearance: grossly normal Affect: normal affect Attitude: cooperative Assessment & Plan Assessment & Plan (1) Bilateral hand pain: Code(s): M79.641 - Pain in right hand; M79.642 - Pain in left hand Category: Medical Plan Assessment & Plan: 1. Patient reported Hx of bilateral thumb dislocations at MCP joints, R>L. First incident ~8 months ago and second incident ~6 months ago, both right No instability today in clinic, and I was unable to reproduce any of her symptoms today No evidence of a trigger finger I do not think this is something that requires treatment at this time I do not have an explanation for her, but there was no clinical instability seen today in clinic She can follow up prn Scribed for Ofelia Jennings MD by Benjamin Vargas, biomedical equipment tech, on 11/26/23 at 4:05 PM, EST. Orders: Orders XR hand RT min 3V Today M79.641 - Pain in right hand XR hand LT min 3V Today M79.642 - Pain in left hand Coding Level of Care Code New Pt Level 4 (60160) Diagnoses Bilateral hand pain M79.641; M79.642
[2023-11-26 15:28] VITALS: BMI 53.9
== END 2023-11-26 16:19 | disposition home or self-care (01) ==
PROVIDERS: PCP Internal Medicine; Visit Provider Orthopaedic Surgery
DX: M79.641 Pain in right hand (principal); M79.642 Pain in left hand
CPT/HCPCS: 99202

== ENCOUNTER 2024-02-05 13:13 | Outpatient (AMB) | payer OTHER, SELFPAY ==
--- NOTE | 2024-02-05 13:16 | A.OFFPC_ITS ---
Vital Signs 02/05/24 13:18 Height 5 ft Weight 269 lb 6 oz BMI 52.6 BP 130/70 Blood Pressure Location Lt brachial Position Sitting Pulse 76 Pulse Source Pulse Oximeter Pulse Oximetry (%) 97 Oxygen Delivery Method Room Air Intake Visit Reasons: annual exam Intake Note: Patient is here today for a physical. Pt decline flu shot today. Security Compliance Specialist Required: No Break Up Worker: Not Required per policy Accompanied by: Self / Same As Patient Allergies Iodinated Contrast Media [CONTRAST, IV] Allergy (Severe, Verified 02/05/24 13:17) Anaphylaxis bee pollen [bee stings] Allergy (Unknown, Verified 02/05/24 13:17) edema Benadryl Allergy (Unknown, Verified 02/05/24 13:17) edema, swelling citalopram [Celexa] Allergy (Unknown, Verified 02/05/24 13:17) edema hydrochlorothiazide Allergy (Unknown, Verified 02/05/24 13:17) unknown latex Allergy (Unknown, Verified 02/05/24 13:17) Swelling prednisolone Allergy (Unknown, Verified 02/05/24 13:17) unknown seafood Allergy (Unknown, Verified 02/05/24 13:17) Hives shellfish derived Allergy (Unknown, Verified 02/05/24 13:17) Swelling tramadol Allergy (Unknown, Verified 02/05/24 13:17) hives cefpodoxime Adverse Reaction (Intermediate, Verified 02/05/24 13:17) bradycardia, no energy sertraline Adverse Reaction (Intermediate, Verified 02/05/24 13:17) confused, yaya Diamox Sequels Adverse Reaction (Unknown, Verified 02/05/24 13:17) pain/tingling lisinopril Adverse Reaction (Unknown, Verified 02/05/24 13:17) dizziness Medication List - Last Reconciled 02/05/24 by Atif Lim Po, albuterol sulfate 90 mcg/actuation (Ventolin HFA) 2 puffs inhalation Q6H PRN amlodipine 5 mg PO DAILY ascorbate calcium (vitamin C) 500 mg PO DAILY 90 days aspirin (Adult Aspirin Regimen) 81 mg PO DAILY cyanocobalamin (vitamin B-12) 1,000 mcg PO DAILY 90 days docusate sodium (Colace) 200 mg (2 x 100 mg) PO BEDTIME 90 days furosemide 20 mg PO DAILY 90 days galcanezumab-gnlm (Emgality Pen) 240 mg (2 mL) subcut ONCE 30 days levonorgestrel (Mirena) intrauterine meloxicam 15 mg PO DAILY mometasone (Asmanex Twisthaler) 1 inh inhalation QPM omeprazole 20 mg PO DAILY polyethylene glycol 3350 (Miralax) 17 grams PO DAILY [Rollator with seat and seat As directed] semaglutide 0.5 mg (0.736 mL) subcut QWEEK sumatriptan succinate 50 - 100 mg orally at onset of headache, may repeat in 2 hrs PRN; max 2 tabs per day or 4 tabs/week (may take with Ibuprofen) 30 days Tobacco use date assessed: 02/05/24 Dental Screening Dental Screen Date: 08/27/23 HPI annual exam HPI Details 38-year-old morbidly obese female(noted 7 lb weight loss) with migraine, sleep apnea, asthma, bipolar disorder hypertension GERD last seen in 10/17/2023. Patient is here for physical exam. Review of the notes ER visit in November 23 chest pain with diaphoresis workup negative. Patient complains of having thumb dislocation and was sent to the Orthopedics. Did not appreciate any instability no evidence of trigger finger. L side of face numb and . R neck pain radiating to the R side of the head- 3 days spontaneously states started with ozempic. decline vaccine [facility] Medical History (Updated 02/05/24 @ 15:28 by Atif Milian MD) Recurrent finger dislocation Bilateral hand pain Migraine Morbid obesity UTI (urinary tract infection) Breakthrough bleeding associated with intrauterine device (IUD) Asthma Asthma Left ovarian cyst Morbid obesity due to excess calories Exposure to hepatitis C Insomnia GERD (gastroesophageal reflux disease) Peripheral vascular disease Iron deficiency anemia Irregular menses Well woman exam with routine gynecological exam Obstructive sleep apnea Fibromyalgia Tension headache Bipolar 1 disorder Hypertension Surgical History Hx of tubal ligation Family History (Updated 02/05/24 @ 13:16 by KINGSTON Atkins) Father Hypertension Lymphoma Myocardial infarct Diabetes mellitus Mother Epilepsy Asthma Sleep apnea Bipolar disorder Colon polyps Maternal Grandmother Diabetes mellitus Paternal Grandfather Pancreatic cancer Myocardial infarct Paternal Aunt Breast CA Sister No problems noted. Sister No problems noted. Brother Myocardial infarct Brother No problems noted. Daughter Seizure Anxiety Depression Asthma Migraine Daughter ADHD Daughter No problems noted. Paternal Uncle Schizophrenia Other Mental health disorder Social History Housing: Apartment Alcohol intake: never Patient Tobacco Use Status: Former Tobacco user Tobacco use type: Cigarette Years Smoked: 2011 stopped e-Cigarette/Vaping Use: Never Used Second Hand Smoke Exposure: No service: No Current occupational status: unemployed Current occupation: rt handed Sexual orientation: Straight/Heterosexual Gender identity: Female Cognitive needs: No Hearing needs: No Vision needs: No Female Reproductive History Menstrual Age of Menarche: 10 Questionnaire PHQ-9 Over the last 2 weeks, how often have you been bothered by any of the following problems? 1. Little interest or pleasure in doing things: several days 2. Feeling down, depressed, or hopeless: several days 3. Trouble falling or staying asleep, or sleeping too much: several days 4. Feeling tired or having little energy: several days 7. Trouble concentrating on things, such as reading the newspaper or watching television: several days 8. Moving or speaking so slowly that other people could have noticed. Or the opposite - being so fidgety or restless that you have been moving around a lot more than usual: not at all 9. Thoughts that you would be better off or of hurting yourself in some way: not at all Depression Screening Interpretation: Positive Depression Screening Done: Yes Source: Developed by Drs. Dakotah Faustin, Shaylee Giron, Bonilla Gomez and colleagues, with an educational berhane from [employer]. Thrive Questionnaire Date Thrive assessed: 02/05/24 I am a: Patient What is your living situation today?: I have a place to live, but I am worried about losing it in the future Within the past 12 months, did the food you bought not last and you didn't have the money to get more?: Sometimes True Within the past 12 months, did you worry whether your food would run out before you got money to buy more?: Sometimes True Do you have trouble paying for medicines?: No Do you have trouble getting transportation to medical appointments?: No Do you have trouble paying your heating and electricity bill?: I choose not to answer this question Do you have trouble taking care of your child, family member or friend?: Yes Do you have trouble with day-to-day activities such as bathing, preparing meals, shopping, managing finances, etc.?: Yes Are you currently unemployed and looking for a job?: No Are you interested in more education?: Yes Please select the resources that you would like help with: None Currently or been in a relationship where the following occur: No concerns reported THRIVE Score: 3 AUDIT C Alcohol Use Questionnaire (AUDIT-C) 1. How often do you have a drink containing alcohol?: Never Total Score: 0 JORI-7 AMB Questionnaire JORI-7 Date JORI - 7 assessed: 02/05/24 Feeling nervous, anxious, or on edge: 1 = Several days Not being able to stop or control worryin = More than half the days Worrying too much about different things: 1 = Several days Trouble relaxin = Several days Being so restless that it is hard to sit still: 1 = Several days Becoming easily annoyed or irritable: 1 = Several days Feeling afraid as if something awful might happen: 0 = Not at all Total JORI-7 score (0-4 normal; 5-9 mild; 10-14 moderate; 15-21 severe): 7 Source: Developed by Drs. Dakotah Faustin, Shaylee Giron, Bonilla Gomez and colleagues, with an educational berhane from [employer]. Review of Systems Const Denies poor appetite and Denies weakness Eyes Denies no additional complaints ENT Reports Normal hearing present, Denies dizziness, Denies nasal congestion, Denies tinnitus and Denies sore throat Card Denies chest pain, Denies syncope, Denies rapid heart rate and Denies dyspnea Resp Denies cough and Denies dyspnea GI Denies change in stool character, Reports constipation, Denies diarrhea, Denies nausea and Denies vomiting Denies urinary frequency, Denies difficulty voiding and Denies dysuria Neuro Reports Normal hearing present, Denies confusion, Denies dizziness, Denies syncope and Denies weakness Psych Denies confusion Physical exam (Primary Care) Vital Signs: Last Vital Signs Pulse 76 02/05/24 13:18 BP 130/70 02/05/24 13:18 Pulse Ox 97 02/05/24 13:18 Oxygen Delivery Method Room Air 02/05/24 13:18 BMI result Body Mass Index 52.6 Tobacco/Smoking Status: Tobacco use Status Tobacco use date assessed 02/05/24 02/05/24 13:23 Patient Tobacco Use Status Former Tobacco user 02/05/24 13:23 Tobacco use type Cigarette 02/05/24 13:23 e-Cigarette/Vaping Use Never Used 02/05/24 13:23 Depression Screening Interpretation: Positive Thrive Assessment: Date of Thrive Assessment Date Thrive assessed 02/05/24 02/05/24 13:23 Currently or been in a relationship where the following occur: No concerns reported Const General: No confusion Orientation/consciousness: No confusion HENMT Head: Yes normocephalic Ears: external ears normal and TM's normal bilaterally Face and sinus: Yes normal facial exam Mouth: moist mucous membranes Throat: Yes tonsils normal Eyes Conjunctivae: conjunctivae normal Pupils: Equal, round and reactive pupils present and Pupil accommodation reflex normal Direct Ophthalmoscopy: normal light reflex Neck Neck: No lymphadenopathy Thyroid: Thyroid normal Chest Chest palpation & inspection: normal inspection of the chest Resp Effort & Inspection: normal respiratory effort and no audible wheezes Auscultation: clear to auscultation bilaterally, no crackles, no wheezes and lung sounds not diminished Cardio Rate: regular rate Rhythm: regular rhythm Peripheral pulses: radial pulses present and dorsalis pedis present GI Palpation (GI): no masses Auscultation: normal bowel sounds and normoactive bowel sounds Rectal Exam - Female: deferred Skin General skin exam: no rashes or lesions noted Rashes: no rashes Neuro General: No confusion Cranial nerves: Yes Equal, round and reactive pupils present and Yes Normal hearing present Cognition (Neuro): normal cognition Gait exam (Neuro): Normal gait present Motor exam (neuro): 5/5 motor strength present throughout Deep tendon reflexes (DTR's): Right brachioradialis reflex intensity grade: 2+, Left brachioradialis reflex intensity grade: 2+, Right patellar reflex intensity grade: 2+ and Left patellar reflex intensity grade: 2+ Extrem General: No edema Coding Level of Care Code Est Pt Prev Care 40-64y(23308) Diagnoses Annual physical exam Z00.00 Bilateral thumb pain M79.644; M79.645 Chronic migraine w/o aura w/o status migrainosus, not intractable G43.709 Obesity, morbid, BMI 50 or higher E66.01 Mild intermittent asthma without complication J45.20 Asthma severity: mild Asthma persistence: intermittent Asthma complication type: uncomplicated Precordial pain R07.2 Chest pain type: precordial pain Bipolar 1 disorder F31.9 Obstructive sleep apnea G47.33 Essential hypertension I10 Hypertension type: essential hypertension Gastroesophageal reflux disease without esophagitis K21.9 Esophagitis presence: without esophagitis Breast cancer screening by mammogram Z12.31 RUQ abdominal pain R10.11 Tinnitus of both ears H93.13 Laterality: bilateral Frequency of micturition R35.0 Assessment & Plan Assessment & Plan (1) Annual physical exam: Code(s): Z00.00 - Encounter for general adult medical examination without abnormal findings Category: Medical Plan: Patient is advised to eat healthy, keep well hydrated, keep active and have adequate sleep. (2) Bilateral thumb pain: Comment: Orthopedics 2023 reassurance Code(s): M79.644 - Pain in right finger(s); M79.645 - Pain in left finger(s) Category: Medical Plan: Patient has seen Orthopedics and reassurance (3) Chronic migraine w/o aura w/o status migrainosus, not intractable: Code(s): G43.709 - Chronic migraine without aura, not intractable, without status migrainosus Category: Medical Plan: Patient is advised to eat healthy, keep well hydrated, keep active and have adequate sleep. (4) Obesity, morbid, BMI 50 or higher: Code(s): E66.01 - Morbid (severe) obesity due to excess calories Category: Medical Plan: Diet and exercise (5) Asthma: Comment: SHE HAS HAD MILD INTERMITTENT BRONCHIAL ASTHMA, MOST LIKELY SECONDARY TO ENVIRONMENTAL ALLERGIES. TX : ADVISED TO CONTINUE FLOVENT 110 2 PUFFS B.I.D.. AND USE ALBUTEROL HFA 2 PUFFS Q 4-6 HOURS ONLY P.R.N. Code(s): J45.909 - Unspecified asthma, uncomplicated Category: Medical Qualifiers: Asthma severity: mild Asthma persistence: intermittent Asthma complication type: uncomplicated Qualified Code(s): J45.20 - Mild intermittent asthma, uncomplicated Plan: has not been using as needing a small mask (6) Chest pain: Comment: January 2022 stress echo negative October 2023 Code(s): R07.9 - Chest pain, unspecified Category: Medical Qualifiers: Chest pain type: precordial pain Qualified Code(s): R07.2 - Precordial pain Plan: Workup has been negative (7) Bipolar 1 disorder: Comment: Anxiety disorder, PTSD, panic attacks, BHN (07/2021) FOR THIS REASON ALSO IT IS BETTER FOR HER TO USE THE CPAP. Code(s): F31.9 - Bipolar disorder, unspecified Category: Medical Plan: Pretty with counseling and therapy (8) Obstructive sleep apnea: Comment: SHE HAS HAD MODERATE HE HAS SEVERE OBSTRUCTIVE SLEEP APNEA, CONFIRMED WITH THE SLEEP STUDIES IN 2018 AND 2020. HAS BEEN TREATED WITH CPAP., WHICH SHE DID NOT USE FOR ABOUT A YEAR. LAST SLEEP STUDY IN NOVEMBER 2021 SHOWS A MILD DEGREE OF ROCIO. BUT SHE DOES HAVE ASSOCIATED COMORBID CONDITIONS, AND WOULD BENEFIT FROM THE USE OF CPAP. PATIENT HAS STARTED USING THE CPAP ALREADY, WITH PRESSURE SETTING AUTO PAP MODE 5-20 CMS , USING FULLFACE MASK. SHE IS WELL VERSED WITH THE USE OF CPAP. WE WILL CONTACT DME PROVIDER AND, DOWNLOAD HER COMPLIANCE DATA. Code(s): G47.33 - Obstructive sleep apnea (adult) (pediatric) Category: Medical Plan: awaiting new mask (9) Hypertension: Code(s): I10 - Essential (primary) hypertension Category: Medical Qualifiers: Hypertension type: essential hypertension Qualified Code(s): I10 - Essential (primary) hypertension Plan: Continue with blood pressure medication. Decrease salt intake and exercise on amlodipine 5 mg once a day (10) GERD (gastroesophageal reflux disease): Code(s): K21.9 - Gastro-esophageal reflux disease without esophagitis Category: Medical Qualifiers: Esophagitis presence: without esophagitis Qualified Code(s): K21.9 - Gastro-esophageal reflux disease without esophagitis Plan: Avoid the foods that causes that usually spicy foods, tomato products, juices, coffee, soda and foods that your sensitive to. After eating do not lie down, allow 3-4 hours before in lie down. And keep the head of bed above 30 degrees to avoid the acid from going up. (11) Breast cancer screening by mammogram: Code(s): Z12.31 - Encounter for screening mammogram for malignant neoplasm of breast Category: Medical Plan: Patient is reminded (12) RUQ abdominal pain: Code(s): R10.11 - Right upper quadrant pain Category: Medical Plan: Ultrasound requested (13) Tinnitus: Code(s): H93.19 - Tinnitus, unspecified ear Category: Medical Qualifiers: Laterality: bilateral Qualified Code(s): H93.13 - Tinnitus, bilateral Plan: Referral for testing (14) Frequency of micturition: Code(s): R35.0 - Frequency of micturition Category: Medical Plan: Urology referral done Orders: Orders Free T4 (Free Thyroxine) Today I10 - Essential (primary) hypertension Thyroid Stimulating Hormone Today I10 - Essential (primary) hypertension Vitamin D 25-OH Total Today I10 - Essential (primary) hypertension Lipid Panel Today E78.00 - Pure hypercholesterolemia, unspecified, I10 - Essential (primary) hypertension UA w Microscopic Today I10 - Essential (primary) hypertension Complete Blood Count Auto Diff Today I10 - Essential (primary) hypertension Comprehensive Met. Panel Today I10 - Essential (primary) hypertension Vitamin B12 and Folate Today I10 - Essential (primary) hypertension US abdomen complete Today R10.11 - Right upper quadrant pain, R79.89 - Other specified abnormal findings of blood chemistry MM tomosynthesis screening BI Today Z12.31 - Encounter for screening mammogram for malignant neoplasm of breast Referrals Speech and Hearing Referral H93.19 - Tinnitus, unspecified ear Urology Referral R35.0 - Frequency of micturition Medications: Refilled meloxicam 15 mg PO DAILY 30 tabs 0RF
[2024-02-05 13:18] VITALS: BP 130/70; PULSE 76; O2SAT 97; BMI 52.6
== END 2024-02-05 13:58 | disposition home or self-care (01) ==
PROVIDERS: PCP Internal Medicine; Visit Provider Internal Medicine
DX: Z00.00 Encounter for general adult medical examination without abnormal findings (principal); E66.813 Obesity, class 3; F31.9 Bipolar disorder, unspecified; Z68.43 Body mass index [BMI] 50.0-59.9, adult; M79.644 Pain in right finger(s); M79.645 Pain in left finger(s); G43.709 Chronic migraine without aura, not intractable, without status migrainosus; J45.20 Mild intermittent asthma, uncomplicated; R07.2 Precordial pain; G47.33 Obstructive sleep apnea (adult) (pediatric); I10 Essential (primary) hypertension; K21.9 Gastro-esophageal reflux disease without esophagitis

== ENCOUNTER → 2024-02-05 13:13 | Outpatient (BNVA) | payer OTHER, SELFPAY | PROVIDERS: PCP Internal Medicine; Visit Provider Internal Medicine | DX: Z00.01 Encounter for general adult medical examination with abnormal findings (principal); M79.644 Pain in right finger(s); M79.645 Pain in left finger(s); E66.01 Morbid (severe) obesity due to excess calories; J45.20 Mild intermittent asthma, uncomplicated; R07.2 Precordial pain; F31.9 Bipolar disorder, unspecified; I10 Essential (primary) hypertension; K21.9 Gastro-esophageal reflux disease without esophagitis; R10.11 Right upper quadrant pain; R35.0 Frequency of micturition; H93.13 Tinnitus, bilateral | CPT/HCPCS: 96127; 99396 ==

== ENCOUNTER 2024-02-20 08:19 | Outpatient (REF) | payer OTHER, SELFPAY ==
--- NOTE | ~2024-02-20 | US_ITS ---
EXAMINATION: US ABDOMEN COMPLETE CLINICAL INFORMATION: Other specified abnormal findings of blood chemistry. COMPARISON: Ultrasound abdomen complete 10/31/2017. Renal ultrasound 01/14/2017. TECHNIQUE: Real-time imaging of the abdominal viscera. Limited visualization due to bowel gas and body habitus. FINDINGS: PANCREAS: Not visualized. ABDOMINAL AORTA: Limited visualization of the abdominal aorta. Imaged portions of the abdominal aorta are within normal limits in caliber. INFERIOR VENA CAVA: Visualized portions are normal. LIVER: Hepatomegaly, 16.6 cm. Increased hepatic parenchymal heterogeneity and echogenicity could be associated with hepatocellular disease/hepatic steatosis and substantially limits visualization. Correlation with liver function tests and clinical exam recommended to determine further management. GALLBLADDER: No gallstones. No gallbladder wall thickening. COMMON BILE DUCT: Limited visualization. Imaged portion measures 0.3 cm in diameter. RIGHT KIDNEY: 1.1 cm midpole. There is no specific indication for additional imaging at this time. Limited visualization. No hydronephrosis or renal calculi. The kidney measures 10.6 cm in maximum dimension. LEFT KIDNEY: No hydronephrosis. No renal calculi. Limited visualization. There is no indication for followup imaging. The kidney measures 11.6 cm in maximum dimension. SPLEEN: Normal. The spleen measures 11.5 cm in maximum dimension. FREE FLUID: None. US/US abdomen complete IMPRESSION: Hepatomegaly, 16.6 cm. Increased hepatic parenchymal heterogeneity and echogenicity could be associated with hepatocellular disease/hepatic steatosis and substantially limits visualization. Correlation with liver function tests and clinical exam recommended to determine further management. Electronically signed by: Kelly Prado MD 03/15/2024 08:02 PM [facility]
== END 2024-02-20 08:20 | disposition home or self-care (01) ==
LOC: HO.US 08:19
PROVIDERS: PCP Internal Medicine; Visit Provider Internal Medicine
DX: R79.89 Other specified abnormal findings of blood chemistry (principal); R10.11 Right upper quadrant pain
CPT/HCPCS: 76700

== ENCOUNTER 2024-02-26 15:16 | Outpatient (REF) | payer OTHER, SELFPAY | END 2024-02-26 15:17 | disposition home or self-care (01) | LOC: HO.SH 15:16 | PROVIDERS: Visit Provider Internal Medicine | DX: Z01.118 Encounter for examination of ears and hearing with other abnormal findings (principal); H93.13 Tinnitus, bilateral | CPT/HCPCS: 92552; 92556 ==

== ENCOUNTER 2024-02-27 11:45 | Outpatient (REF) | payer OTHER, SELFPAY ==
--- NOTE | ~2024-02-27 | MM_ITS ---
EXAMINATION: MM SCREENING DIGITAL BREAST TOMOSYNTHESIS, BILATERAL CLINICAL INFORMATION: Screening. Asymptomatic. COMPARISON: Mammography: Comparison is made with available priors TECHNIQUE: Digital breast mammography with tomosynthesis is performed in both the craniocaudal and mediolateral oblique views along with computer-aided detection (CAD). FINDINGS: There are scattered areas of fibroglandular density (ACR BI-RADS breast composition Category b). There are no significant masses, abnormal calcifications, or other abnormalities. MM/MM tomosynthesis screening BI IMPRESSION: No mammographic evidence of malignancy. ASSESSMENT: BI-RADS BI-RADS 1 - Negative RECOMMENDATION: Routine annual mammography screening. 1 year F/U This examination should not preclude the clinical evaluation of a suspicious palpable abnormality. This patient's information was entered into a reminder system with a target due date for their next mammogram. Electronically signed by: Mine Panda DO 03/06/2024 10:16 AM RAY
== END 2024-02-27 11:46 | disposition home or self-care (01) ==
LOC: HO.MAMMO 11:45
PROVIDERS: PCP Internal Medicine; Visit Provider Internal Medicine
DX: Z12.31 Encounter for screening mammogram for malignant neoplasm of breast (principal)
CPT/HCPCS: 77063; 77067

== ENCOUNTER → 2024-02-27 11:45 | Outpatient (BNV) | payer OTHER, SELFPAY | PROVIDERS: PCP Internal Medicine; Visit Provider Internal Medicine | DX: Z12.31 Encounter for screening mammogram for malignant neoplasm of breast (principal) | CPT/HCPCS: 77063; 77067 ==

== ENCOUNTER 2024-06-08 10:21 | Outpatient (AMB) | payer OTHER, SELFPAY ==
--- NOTE | 2024-06-08 10:21 | A.OFFPC_ITS ---
Vital Signs 06/08/24 10:24 Weight 270 lb 5 oz BP 184/113 H Blood Pressure Location Rt radial Position Sitting Pulse 76 Pulse Source Monitor Comment weight and BP taken at home. 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 Accompanied by: Self / Same As Patient Allergies Iodinated Contrast Media [CONTRAST, IV] Allergy (Severe, Verified 06/08/24 10:) Anaphylaxis bee pollen [bee stings] Allergy (Unknown, Verified 06/08/24 10:) edema Benadryl Allergy (Unknown, Verified 06/08/24 10:) edema, swelling citalopram [Celexa] Allergy (Unknown, Verified 06/08/24 10:) edema hydrochlorothiazide Allergy (Unknown, Verified 06/08/24) unknown latex Allergy (Unknown, Verified 06/08/24:) Swelling prednisolone Allergy (Unknown, Verified 06/08/24 10:) unknown seafood Allergy (Unknown, Verified 06/08/24 10:) Hives shellfish derived Allergy (Unknown, Verified 06/08/24 10:) Swelling tramadol Allergy (Unknown, Verified 06/08/24 10:) hives cefpodoxime Adverse Reaction (Intermediate, Verified 06/08/24 10:) bradycardia, no energy sertraline Adverse Reaction (Intermediate, Verified 06/08/24 10:) confused, yaya Diamox Sequels Adverse Reaction (Unknown, Verified 06/08/24 10:) pain/tingling lisinopril Adverse Reaction (Unknown, Verified 06/08/24 10:) dizziness Tobacco use date assessed: 06/08/24 Dental Screening Dental Screen Date: 06/08/24 Did you have a dental visit in the last 12 months?: No Did you have a dental problem in the last 6 months where you did not have access to dental care?: No Was dental information given to patient?: Patient has dentist HPI Morbid obesity, pt has scale, HPI Details The patient is a 38-year-old female presenting with elevated blood pressure and challenges in weight management. She reports hypertension with a recent reading of 184/113, measured by a wrist device. She acknowledges the non- reliability of this device and has been advised to use an arm cuff for more accurate readings. Morbid obesity remains a concern, with weight fluctuating, most recently self-reported at 269.1 pounds. The patient is currently using Ozempic at 0.50 mg for weight loss, but without noticeable improvement over two months. She expresses frustration with slow scheduling for further weight management consultations. The patient also has a history of hepatic steatosis and elevated liver function tests noted during an ultrasound in February 2024. She uses a CPAP machine for obstructive sleep apnea, recently adjusting the mask size to reduce leakage. Bipolar disorder and migraine are part of her chronic conditions list. There is a history of compliance issues with blood work post- travel to [place], with the last blood work done in May 2021. - General: Reports flu-like symptoms and recovery. - Respiratory: Denies consistent use of CPAP device. - Weight: Reports weight fluctuations. [facility] Medical History (Updated 03/16/24 @ 17:58 by Atif Milian MD) Recurrent finger dislocation Bilateral hand pain Migraine Morbid obesity UTI (urinary tract infection) Breakthrough bleeding associated with intrauterine device (IUD) Asthma Asthma Left ovarian cyst Morbid obesity due to excess calories Exposure to hepatitis C Insomnia GERD (gastroesophageal reflux disease) Peripheral vascular disease Iron deficiency anemia Irregular menses Well woman exam with routine gynecological exam Obstructive sleep apnea Fibromyalgia Tension headache Bipolar 1 disorder Hypertension Surgical History Hx of tubal ligation Family History Father Hypertension Lymphoma Myocardial infarct Diabetes mellitus Mother Epilepsy Asthma Sleep apnea Bipolar disorder Colon polyps Maternal Grandmother Diabetes mellitus Paternal Grandfather Pancreatic cancer Myocardial infarct Paternal Aunt Breast CA Sister No problems noted. Sister No problems noted. Brother Myocardial infarct Brother No problems noted. Daughter Seizure Anxiety Depression Asthma Migraine Daughter ADHD Daughter No problems noted. Paternal Uncle Schizophrenia Other Mental health disorder Social History Housing: Apartment Alcohol intake: never Patient Tobacco Use Status: Former Tobacco user Tobacco use type: Cigarette Years Smoked: 2010 stopped e-Cigarette/Vaping Use: Never Used Second Hand Smoke Exposure: No service: No Current occupational status: unemployed Current occupation: rt handed Sexual orientation: Straight/Heterosexual Gender identity: Female Cognitive needs: No Hearing needs: No Vision needs: No Female Reproductive History Menstrual Age of Menarche: 10 Questionnaire PHQ-9 Over the last 2 weeks, how often have you been bothered by any of the following problems? 1. Little interest or pleasure in doing things: several days 2. Feeling down, depressed, or hopeless: several days 3. Trouble falling or staying asleep, or sleeping too much: several days 4. Feeling tired or having little energy: several days 5. Poor appetite or overeating: several days 6. Feeling bad about yourself - or that you are a failure or have let yourself or your family down: several days 7. Trouble concentrating on things, such as reading the newspaper or watching television: not at all 8. Moving or speaking so slowly that other people could have noticed. Or the opposite - being so fidgety or restless that you have been moving around a lot more than usual: not at all 9. Thoughts that you would be better off or of hurting yourself in some way: not at all Total score: 6 Source: Developed by Drs. Dakotah Faustin, Shaylee Giron, Bonilla Gomez and colleagues, with an educational berhane from [employer]. Thrive Questionnaire Date Thrive assessed: 06/08/24 I am a: Patient What is your living situation today?: I have a place to live, but I am worried about losing it in the future Within the past 12 months, did the food you bought not last and you didn't have the money to get more?: Sometimes True Within the past 12 months, did you worry whether your food would run out before you got money to buy more?: Sometimes True Do you have trouble paying for medicines?: No Do you have trouble getting transportation to medical appointments?: No Do you have trouble paying your heating and electricity bill?: I choose not to answer this question Do you have trouble taking care of your child, family member or friend?: Yes Do you have trouble with day-to-day activities such as bathing, preparing meals, shopping, managing finances, etc.?: Yes Are you currently unemployed and looking for a job?: No Are you interested in more education?: Yes Please select the resources that you would like help with: None Currently or been in a relationship where the following occur: No concerns reported THRIVE Score: 3 AUDIT C Alcohol Use Questionnaire (AUDIT-C) 1. How often do you have a drink containing alcohol?: Never Total Score: 0 JORI-7 AMB Questionnaire JORI-7 Date JORI - 7 assessed: 06/08/24 Feeling nervous, anxious, or on edge: 1 = Several days Not being able to stop or control worryin = Not at all Worrying too much about different things: 1 = Several days Trouble relaxin = Not at all Being so restless that it is hard to sit still: 0 = Not at all Becoming easily annoyed or irritable: 1 = Several days Feeling afraid as if something awful might happen: 0 = Not at all Total JORI-7 score (0-4 normal; 5-9 mild; 10-14 moderate; 15-21 severe): 3 Source: Developed by Drs. Dakotah Faustin, Shaylee Giron, Bonilla Gomez and colleagues, with an educational berhane from [employer]. Physical exam (Primary Care) Vital Signs: Last Vital Signs Pulse 76 06/08/24 10:24 BP 184/113 H 06/08/24 10:24 Tobacco/Smoking Status: Tobacco use Status Tobacco use date assessed 06/08/24 06/08/24 10:26 Patient Tobacco Use Status Former Tobacco user 06/08/24 10:26 Tobacco use type Cigarette 06/08/24 10:26 e-Cigarette/Vaping Use Never Used 06/08/24 10:26 PHQ-9: PHQ-9 Score PHQ-9: Total score 6 06/08/24 11:06 Thrive Assessment: Date of Thrive Assessment Date Thrive assessed 06/08/24 06/08/24 10:26 Currently or been in a relationship where the following occur: No concerns reported Telehealth Telehealth Telehealth Platform: Telephone Location of provider rendering services: practice address Location of patient: address on file Patient Identification confirmed using: Name, : Yes Telehealth method: voice only Patient verbally consented to treatment: Yes Patient verbally consented to billing insurance company: Yes Patient informed of any privacy concerns related to visit: Yes Minutes spent on Phone/Video with Pt.: 15 Coding Level of Care Code Tele Est Pt Level 4 (54508) Diagnoses Essential hypertension I10 Hypertension type: essential hypertension Obstructive sleep apnea G47.33 Obesity, morbid, BMI 50 or higher E66.01 Hepatic steatosis K76.0 Assessment & Plan Assessment & Plan (1) Hypertension: Code(s): I10 - Essential (primary) hypertension Category: Medical Qualifiers: Hypertension type: essential hypertension Qualified Code(s): I10 - Essential (primary) hypertension (2) Obstructive sleep apnea: Comment: SHE HAS HAD MODERATE HE HAS SEVERE OBSTRUCTIVE SLEEP APNEA, CONFIRMED WITH THE SLEEP STUDIES IN 2018 AND 2020. HAS BEEN TREATED WITH CPAP., WHICH SHE DID NOT USE FOR ABOUT A YEAR. LAST SLEEP STUDY IN NOVEMBER 2021 SHOWS A MILD DEGREE OF ROCIO. BUT SHE DOES HAVE ASSOCIATED COMORBID CONDITIONS, AND WOULD BENEFIT FROM THE USE OF CPAP. PATIENT HAS STARTED USING THE CPAP ALREADY, WITH PRESSURE SETTING AUTO PAP MODE 5-20 CMS , USING FULLFACE MASK. SHE IS WELL VERSED WITH THE USE OF CPAP. WE WILL CONTACT DME PROVIDER AND, DOWNLOAD HER COMPLIANCE DATA. Code(s): G47.33 - Obstructive sleep apnea (adult) (pediatric) Category: Medical (3) Obesity, morbid, BMI 50 or higher: Code(s): E66.01 - Morbid (severe) obesity due to excess calories Category: Medical (4) Hepatic steatosis: Comment: February 2024Hepatomegaly, 16.6 cm. Increased hepatic parenchymal heterogeneity and echogenicity could be associated with hepatocellular disease/hepatic steatosis and substantially limits visualization. Correlation with liver function tests and clinical exam recommended to determine further management. Code(s): K76.0 - Fatty (change of) liver, not elsewhere classified Category: Medical Plan - Recommend accurate blood pressure monitoring using an arm cuff and arrange follow-up for hypertension management. - Increase Ozempic dosage for weight management, monitor progress, and adjust as needed. - Follow up on liver function tests and manage hepatic steatosis as indicated. - Continue current management of obstructive sleep apnea with considerations to improve CPAP use. - Discussed scheduling blood work as per standard recommendations for further assessment of systemic conditions. I discussed with the patient the need for accurate blood pressure monitoring using an arm-based device to provide reliable readings, which are vital for the effective management of hypertension. We reviewed her current medication regimen and agreed to escalate the dose of Ozempic for weight management. I reiterated the unreliability of the wrist blood pressure monitor, emphasizing the potential risks of poorly controlled blood pressure, especially concerning weight management and overall cardiovascular health. We explored the possibility of pursuing surgical options for obesity but highlighted the importance of blood pressure control before any procedures. I advised her on the importance of obtaining timely blood work and maintaining adherence to CPAP therapy to manage her sleep apnea effectively. I addressed concerns about her liver health, given her elevated liver function tests, and discussed monitoring strategies to manage hepatic steatosis. - Use an arm cuff blood pressure monitor and document readings. - Follow new dosing instructions for Ozempic. - Schedule and complete blood work at the earliest opportunity. - Maintain consistent use of the CPAP machine and report any issues. - Monitor liver function with follow-up blood tests as recommended. - Engage in regular exercise and dietary adjustments for weight management. - Stay hydrated and protect yourself from flu, COVID-19, and RSV exposure.
[2024-06-08 10:24] VITALS: BP 184/113; PULSE 76
== END 2024-06-08 11:27 | disposition home or self-care (01) ==
LOC: HO.HMCH 10:21
PROVIDERS: PCP Internal Medicine; Visit Provider Internal Medicine
DX: I10 Essential (primary) hypertension (principal); G47.33 Obstructive sleep apnea (adult) (pediatric); E66.01 Morbid (severe) obesity due to excess calories; K76.0 Fatty (change of) liver, not elsewhere classified

== ENCOUNTER → 2024-06-08 10:21 | Outpatient (BNVA) | payer OTHER, SELFPAY | PROVIDERS: PCP Internal Medicine; Visit Provider Internal Medicine ==

== ENCOUNTER 2024-06-09 12:16 | Outpatient (REF) | payer OTHER, SELFPAY ==
[2024-06-09 12:26] LABS: MANUAL DIFF FLAG NO
[2024-06-09 13:29] LABS: Basophils Absolute Auto 0.1 X10*3/uL (0.0-0.2); Basophils Percent Auto 0.5 % (0-2); Eosinophils Absolute Auto 0.3 X10*3/uL (0.0-0.4); Hematocrit 45.9 % (37.0-47.0); Hemoglobin 14.8 g/dl (12.0-16.0); Imm Gran Abs Auto 0.04 X10*3/uL (0.00-0.03); Imm Gran Pct Auto 0.4 % (0.0-0.4); Lymphocytes Absolute Auto 2.4 X10*3/uL (1.2-4.9); Lymphocytes Percent Auto 24.1 % (20-40); Mean Corpuscular HGB Conc 32.2 g/dl (31.0-35.0); Mean Corpuscular Hemoglobin 27.2 pg (27.0-33.0); Mean Corpuscular Volume 84.2 fL (80.0-98.0); Mean Platelet Volume 9.7 fL (9.4-12.3); Monocytes Absolute Auto 0.5 X10*3/uL (0.1-1.2); Monocytes Percent Auto 5.4 % (2-11); Neutrophils Absolute Auto 6.6 x10*3/uL (2.0-8.3); Neutrophils Percent Auto 66.6 % (45-73); Platelet Count 397 X10*3/uL (160-400); Red Blood Count 5.45 X10*6/uL (4.20-5.50); Red Cell Distribution Width 14.1 % (11.0-16.0); White Blood Count 9.9 X10*3/uL (4.8-10.8)
[2024-06-09 13:35] LABS: Appearance Urine Cloudy; Color Urine Yellow; Glucose Urine UA Negative (Negative); Leukocyte Esterase Urine Small (1+) (Negative); Nitrite Urine Negative (Negative); PH 6.5 (5.0-9.0); UMIC TRIGGER UACC YES; Urine Blood Large (3+) (Negative); Urine Ketones Negative (Negative); Urine Protein 30 (1+) mg/dL (Neg-Trace)
[2024-06-09 13:44] LABS: Bacteria Urine 2+ (None Seen); Hyaline Casts Urine 0-2 /LPF (0-2); RBC Urine >20 /HPF (0-2); UACC Culture Trigger YES
[2024-06-09 14:46] LABS: Folate 13.1 ng/mL (> or = 4.0); Vitamin B12 412 pg/mL (200-900)
[2024-06-09 15:38] LABS: Alanine Aminotransferase 33 U/L (0-31); Albumin Level 3.8 g/dL (3.5-5.0); Anion Gap 12 (12-20); Aspartate Amino Transferase 31 U/L (5-31); Bilirubin Total 0.8 mg/dL (0.0-1.0); Blood Urea Nitrogen 13 mg/dL (9-16); Calcium 9.3 mg/dL (8.4-10.2); Carbon Dioxide 27 mmol/L (22-29); Chloride 105 mmol/L (96-108); Cholesterol 188 mg/dL (<200); Estimated Glomerular Filt Rate > 60; Glucose Random 94 mg/dL (60-115); HDL Cholesterol 46 mg/dL (>40); LDL Cholesterol Calculated 123 mg/dL (<100); Potassium 4.4 mmol/L (3.3-5.1); Sodium 140 mmol/L (135-145); Total Protein 8.1 g/dL (6.5-8.0); Triglycerides 98 mg/dL (<150)
[2024-06-09 15:51] LABS: Free T4 (Free Thyroxine) 0.97 ng/dL (0.71-1.85); Thyroid Stimulating Hormone 2.44 uIU/mL (0.32-4.0)
[2024-06-09 17:11] LABS: Alkaline Phosphatase 102 U/L (39-117)
== END 2024-06-09 12:17 | disposition home or self-care (01) ==
LOC: HO.LAB 12:16
PROVIDERS: PCP Internal Medicine; Visit Provider Internal Medicine
DX: I10 Essential (primary) hypertension (principal); E78.00 Pure hypercholesterolemia, unspecified
CPT/HCPCS: 36415; 80053; 80061; 81001; 82306; 82607; 82746; 84439; 84443; 85025; 87086

== ENCOUNTER 2024-07-08 14:23 | Outpatient (AMB) | payer OTHER, SELFPAY ==
[2024-07-08 14:44] VITALS: BP 128/82; PULSE 87; O2SAT 97; BMI 53.2
--- NOTE | 2024-07-08 14:44 | A.OFFPC_ITS ---
Vital Signs 07/08/24 14:44 Height 5 ft Weight 272 lb 8 oz BMI 53.2 BP 128/82 Blood Pressure Location Lt brachial Position Sitting Pulse 87 Pulse Source Pulse Oximeter Pulse Oximetry (%) 97 Oxygen Delivery Method Room Air Intake Visit Reasons: [facility]26 Chest pain Bonbon Cream Warmer Required: No Accompanied by: Self / Same As Patient Allergies Iodinated Contrast Media [CONTRAST, IV] Allergy (Severe, Verified 07/08/24 15:00) Anaphylaxis bee pollen [bee stings] Allergy (Unknown, Verified 07/08/24 15:00) edema Benadryl Allergy (Unknown, Verified 07/08/24 15:00) edema, swelling citalopram [Celexa] Allergy (Unknown, Verified 07/08/24 15:00) edema hydrochlorothiazide Allergy (Unknown, Verified 07/08/24 15:00) unknown latex Allergy (Unknown, Verified 07/08/24 15:00) Swelling prednisolone Allergy (Unknown, Verified 07/08/24 15:00) unknown seafood Allergy (Unknown, Verified 07/08/24 15:00) Hives shellfish derived Allergy (Unknown, Verified 07/08/24 15:00) Swelling tramadol Allergy (Unknown, Verified 07/08/24 15:00) hives cefpodoxime Adverse Reaction (Intermediate, Verified 07/08/24 15:00) bradycardia, no energy sertraline Adverse Reaction (Intermediate, Verified 07/08/24 15:00) confused, yaya Diamox Sequels Adverse Reaction (Unknown, Verified 07/08/24 15:00) pain/tingling lisinopril Adverse Reaction (Unknown, Verified 07/08/24 15:00) dizziness Medication List - Last Reconciled 07/08/24 by Tomasa Olmstead PA-C albuterol sulfate 90 mcg/actuation (Ventolin HFA) 2 puffs inhalation Q6H PRN amlodipine 5 mg PO DAILY ascorbate calcium (vitamin C) 500 mg PO DAILY 90 days aspirin (Adult Aspirin Regimen) 81 mg PO DAILY cyanocobalamin (vitamin B-12) 1,000 mcg PO DAILY 90 days docusate sodium (Colace) 200 mg (2 x 100 mg) PO BEDTIME 90 days furosemide 20 mg PO DAILY 90 days galcanezumab-gnlm (Emgality Pen) 240 mg (2 mL) subcut ONCE 30 days levonorgestrel (Mirena) intrauterine meloxicam 15 mg PO DAILY mometasone (Asmanex Twisthaler) 1 inh inhalation QPM omeprazole 20 mg PO DAILY polyethylene glycol 3350 (Miralax) 17 grams PO DAILY [Rollator with seat and seat As directed] semaglutide 1 mg (0.75 mL) subcut QWEEK sumatriptan succinate 50 - 100 mg orally at onset of headache, may repeat in 2 hrs PRN; max 2 tabs per day or 4 tabs/week (may take with Ibuprofen) 30 days Tobacco use date assessed: 07/08/24 Dental Screening Dental Screen Date: 07/08/24 Did you have a dental visit in the last 12 months?: No Did you have a dental problem in the last 6 months where you did not have access to dental care?: No Was dental information given to patient?: No HPI [facility] 06/26 Chest pain HPI Details 38-year-old female with past medical his tory of hypertension, GERD, obstructive sleep apnea, bipolar 1 disorder, idiopathic intracranial hypertension, migraine and fatty liver disease last seen 05/[address] Milian coming in for hospital discharge follow up. In review of the notes, patient was seen [place] [facility] [place] for chest pain EKG and blood work reassuring and CT of the head normal.?Patient was discharged home to continue on antihypertensives and follow up with PCP. Presenting with intermittent chest pain and headache which has been peristsent for several weeks. Her symptoms include episodes of rapid chest sensations followed by severe headaches, described as swelling and pain at the back of her head. Prior emergency evaluation included normal imaging and lab work, with no admission required. Headaches vary in severity and duration, with episodic pounding in the eyes precipitating chest pain. The patient self-medicates with Excedrin and baby aspirin, achieving limited symptom control. Current management with sumatriptan is inadequate, as headaches persist. She was previously being evaluated by a neurologist but has not seen them in over a year. [facility] Medical History (Updated 03/16/24 @ 17:58 by Atif Milian MD) Recurrent finger dislocation Bilateral hand pain Migraine Morbid obesity UTI (urinary tract infection) Breakthrough bleeding associated with intrauterine device (IUD) Asthma Asthma Left ovarian cyst Morbid obesity due to excess calories Exposure to hepatitis C Insomnia GERD (gastroesophageal reflux disease) Peripheral vascular disease Iron deficiency anemia Irregular menses Well woman exam with routine gynecological exam Obstructive sleep apnea Fibromyalgia Tension headache Bipolar 1 disorder Hypertension Surgical History Hx of tubal ligation Family History Father Hypertension Lymphoma Myocardial infarct Diabetes mellitus Mother Epilepsy Asthma Sleep apnea Bipolar disorder Colon polyps Maternal Grandmother Diabetes mellitus Paternal Grandfather Pancreatic cancer Myocardial infarct Paternal Aunt Breast CA Sister No problems noted. Sister No problems noted. Brother Myocardial infarct Brother No problems noted. Daughter Seizure Anxiety Depression Asthma Migraine Daughter ADHD Daughter No problems noted. Paternal Uncle Schizophrenia Other Mental health disorder Social History Housing: Apartment Alcohol intake: never Patient Tobacco Use Status: Former Tobacco user Tobacco use type: Cigarette Years Smoked: 2010 stopped e-Cigarette/Vaping Use: Never Used Second Hand Smoke Exposure: No service: No Current occupational status: unemployed Current occupation: rt handed Sexual orientation: Straight/Heterosexual Gender identity: Female Cognitive needs: No Hearing needs: No Vision needs: No Female Reproductive History Menstrual Age of Menarche: 10 Questionnaire PHQ-9 Over the last 2 weeks, how often have you been bothered by any of the following problems? 1. Little interest or pleasure in doing things: several days 2. Feeling down, depressed, or hopeless: several days 3. Trouble falling or staying asleep, or sleeping too much: several days 4. Feeling tired or having little energy: several days 5. Poor appetite or overeating: several days 6. Feeling bad about yourself - or that you are a failure or have let yourself or your family down: several days 7. Trouble concentrating on things, such as reading the newspaper or watching television: not at all 8. Moving or speaking so slowly that other people could have noticed. Or the opposite - being so fidgety or restless that you have been moving around a lot more than usual: not at all 9. Thoughts that you would be better off or of hurting yourself in some way: not at all Total score: 6 Source: Developed by Drs. Dakotah Faustin, Shaylee Bonilla Daugherty and colleagues, with an educational berhane from [employer]. Thrive Questionnaire Date Thrive assessed: 07/08/24 I am a: Patient What is your living situation today?: I have a place to live, but I am worried about losing it in the future Within the past 12 months, did the food you bought not last and you didn't have the money to get more?: Sometimes True Within the past 12 months, did you worry whether your food would run out before you got money to buy more?: Sometimes True Do you have trouble paying for medicines?: No Do you have trouble getting transportation to medical appointments?: No Do you have trouble paying your heating and electricity bill?: I choose not to answer this question Do you have trouble taking care of your child, family member or friend?: Yes Do you have trouble with day-to-day activities such as bathing, preparing meals, shopping, managing finances, etc.?: Yes Are you currently unemployed and looking for a job?: No Are you interested in more education?: Yes Please select the resources that you would like help with: None Currently or been in a relationship where the following occur: No concerns reported THRIVE Score: 3 AUDIT C Alcohol Use Questionnaire (AUDIT-C) 1. How often do you have a drink containing alcohol?: Never 3. How often do you have six or more drinks on one occasion?: Never Total Score: 0 JORI-7 AMB Questionnaire JORI-7 Date JORI - 7 assessed: 07/08/24 Feeling nervous, anxious, or on edge: 1 = Several days Not being able to stop or control worryin = Not at all Worrying too much about different things: 1 = Several days Trouble relaxin = Not at all Being so restless that it is hard to sit still: 0 = Not at all Becoming easily annoyed or irritable: 1 = Several days Feeling afraid as if something awful might happen: 0 = Not at all Total JORI-7 score (0-4 normal; 5-9 mild; 10-14 moderate; 15-21 severe): 3 Source: Developed by Drs. Dakotah aFustin, Bonilla Maradiaga and colleagues, with an educational berhane from [employer]. Review of Systems Const Denies body aches, Denies chills, Denies fever(s), Reports headache(s) and Denies poor appetite Eyes Reports no additional complaints ENT Denies dysphagia, Denies dizziness, Reports headache(s) and Denies odynophagia Card Reports chest pain (Intermittent), Denies syncope, Denies edema, Denies irregular heart rhythm, Denies lightheadedness and Denies dyspnea Resp Denies cough and Denies dyspnea GI Denies abdominal pain, Denies constipation, Denies dysphagia, Denies diarrhea, Denies nausea, Denies odynophagia and Denies vomiting Reports no additional complaints Musc Reports no additional complaints and Denies abnormal gait Skin/Breast Reports system reviewed and no additional complaints, except as documented Neuro Denies abnormal gait, Denies dizziness, Denies syncope and Reports headache(s) Psych Reports no additional complaints Physical exam (Primary Care) Vital Signs: Last Vital Signs Pulse 87 07/08/24 14:44 BP 128/82 07/08/24 14:44 Pulse Ox 97 07/08/24 14:44 Oxygen Delivery Method Room Air 07/08/24 14:44 BMI result Body Mass Index 53.2 Tobacco/Smoking Status: Tobacco use Status Tobacco use date assessed 07/08/24 07/08/24 14:48 Patient Tobacco Use Status Former Tobacco user 07/08/24 14:48 Tobacco use type Cigarette 07/08/24 14:48 e-Cigarette/Vaping Use Never Used 07/08/24 14:48 PHQ-9: PHQ-9 Score PHQ-9: Total score 6 07/08/24 15:49 Thrive Assessment: Date of Thrive Assessment Date Thrive assessed 07/08/24 07/08/24 14:48 Currently or been in a relationship where the following occur: No concerns reported Const General: cooperative, healthy appearing, comfortable and no acute distress Orientation/consciousness: patient oriented x3 HENMT Head: Yes normocephalic Ears: hearing grossly normal bilaterally General nose exam: Normal external nose present Eyes General: appearance normal, both eyes and all related structures Conjunctivae: conjunctivae normal Neck Neck: Yes full ROM and Yes no lymphadenopathy Resp Effort & Inspection: normal respiratory effort Auscultation: clear to auscultation bilaterally, no crackles, no rales, no rhonchi and no wheezes Cardio Rate: regular rate Rhythm: regular rhythm Skin General skin exam: no rashes or lesions noted Neuro General: patient oriented x3 Gait exam (Neuro): Normal gait present Extrem General: Yes normal to inspection, Yes full ROM and No edema Psych Affect: normal affect Attitude: cooperative Insight: Good insight present (Psych) Judgement: Good judgement present (Psych) Coding Level of Care Code Est Pt Level 4 (25012) Diagnoses Hepatic steatosis K76.0 Obesity, morbid, BMI 50 or higher E66.01 Gastroesophageal reflux disease without esophagitis K21.9 Esophagitis presence: without esophagitis Essential hypertension I10 Hypertension type: essential hypertension Chronic migraine w/o aura w/o status migrainosus, not intractable G43.709 Precordial pain R07.2 Chest pain type: precordial pain Assessment & Plan Assessment & Plan (1) Hepatic steatosis: Comment: February 2024Hepatomegaly, 16.6 cm. Increased hepatic parenchymal heterogeneity and echogenicity could be associated with hepatocellular disease/hepatic steatosis and substantially limits visualization. Correlation with liver function tests and clinical exam recommended to determine further management. Code(s): K76.0 - Fatty (change of) liver, not elsewhere classified Category: Medical Plan: Healthy diet and regular exercise is encouraged. (2) Obesity, morbid, BMI 50 or higher: Code(s): E66.01 - Morbid (severe) obesity due to excess calories Category: Medical Plan: Healthy diet and regular exercise is encouraged. (3) GERD (gastroesophageal reflux disease): Code(s): K21.9 - Gastro-esophageal reflux disease without esophagitis Category: Medical Qualifiers: Esophagitis presence: without esophagitis Qualified Code(s): K21.9 - Gastro-esophageal reflux disease without esophagitis Plan: Avoid trigger foods such as citrus, tomato products, soda, caffeine, spicy foods and other foods that may be irritating to your stomach. Avoid laying flat 3-4 hours after eating and elevate the head of the bed 30 degrees to prevent acid from moving into the esophagus. (4) Hypertension: Code(s): I10 - Essential (primary) hypertension Category: Medical Qualifiers: Hypertension type: essential hypertension Qualified Code(s): I10 - Essential (primary) hypertension Plan: Continue on current blood pressure medication. Avoid salt intake and encourage healthy diet and regular exercise. (5) Chronic migraine w/o aura w/o status migrainosus, not intractable: Code(s): G43.709 - Chronic migraine without aura, not intractable, without status migrainosus Category: Medical Plan: We discussed the importance of seeking further neurologic evaluation due to persistent headache symptoms with her history of intracranial hypertension, as current management with sumatriptan is inadequate. Patient previously being evaluated by Neurology but has not been seen in over a year. (6) Chest pain: Comment: January 2022 stress echo negative October 2023 Code(s): R07.9 - Chest pain, unspecified Category: Medical Qualifiers: Chest pain type: precordial pain Qualified Code(s): R07.2 - Precordial pain Plan: A cardiology consultation is also planned to explore her recurrent chest pain, given the family history of cardiac issues. She is advised to acquire a reliable method for monitoring her blood pressure at home, which could provide valuable information in managing her symptoms. She has seen a venetian blind cleaner in the past advised to follow up with this office. Ongoing care will involve appointments with her neurologist and venetian blind cleaner to adjust her treatment plan as needed. She should continue monitoring her symptoms and seek urgent care if neurological symptoms worsen. Plan This note was constructed using voice recognition software. While every effort has been made to ensure accuracy and superintendent container terminal, still areas may have been included sometimes these areas may affect the content or meeting of the given symptoms. Total time spent caring for the patient today was 20 minutes. This includes time spent before the visit reviewing the chart, time spent during the visit, and time spent after the visit and documentation. Patient was informed and verbally consented to the use of an ambient scribe for clinic note documentation during this visit.
== END 2024-07-08 15:22 | disposition home or self-care (01) ==
LOC: HO.HMCH 14:24
PROVIDERS: PCP Internal Medicine
DX: K76.0 Fatty (change of) liver, not elsewhere classified (principal); E66.01 Morbid (severe) obesity due to excess calories; Z68.43 Body mass index [BMI] 50.0-59.9, adult; K21.9 Gastro-esophageal reflux disease without esophagitis; I10 Essential (primary) hypertension; G43.709 Chronic migraine without aura, not intractable, without status migrainosus; R07.2 Precordial pain

== ENCOUNTER → 2024-07-08 14:23 | Outpatient (BNVA) | payer OTHER, SELFPAY | PROVIDERS: PCP Internal Medicine | DX: K76.0 Fatty (change of) liver, not elsewhere classified (principal); K21.9 Gastro-esophageal reflux disease without esophagitis; I10 Essential (primary) hypertension; R07.2 Precordial pain; G43.709 Chronic migraine without aura, not intractable, without status migrainosus; E66.01 Morbid (severe) obesity due to excess calories; Z68.43 Body mass index [BMI] 50.0-59.9, adult; Z71.3 Dietary counseling and surveillance | CPT/HCPCS: 99212 ==

== ENCOUNTER 2024-07-24 11:48 | Outpatient (AMB) | payer OTHER, SELFPAY ==
--- NOTE | 2024-07-24 12:03 | MHC.OFFWIV ---
Intake Vital Signs 07/24/24 12:09 Weight 272 lb BP 130/84 Blood Pressure Location Rt brachial Position Sitting Pulse 80 Pulse Source Pulse Oximeter Temp 98.0 F Temp Source Oral Pulse Oximetry (%) 98 Oxygen Delivery Method Room Air Intake Visit Reasons: EP Sore throat, cough, aches, head pressure Intake Note: Patient here for eye pressure, migraines, dizzy, nausea and body aches that has been present for about 2 weeks now. Patient Tobacco Use Status: Former Tobacco user Allergies Iodinated Contrast Media [CONTRAST, IV] Allergy (Severe, Verified 07/24/24 12:10) Anaphylaxis bee pollen [bee stings] Allergy (Unknown, Verified 07/24/24 12:10) edema Benadryl Allergy (Unknown, Verified 07/24/24 12:10) edema, swelling citalopram [Celexa] Allergy (Unknown, Verified 07/24/24 12:10) edema hydrochlorothiazide Allergy (Unknown, Verified 07/24/24 12:10) unknown latex Allergy (Unknown, Verified 07/24/24 12:10) Swelling prednisolone Allergy (Unknown, Verified 07/24/24 12:10) unknown seafood Allergy (Unknown, Verified 07/24/24 12:10) Hives shellfish derived Allergy (Unknown, Verified 07/24/24 12:10) Swelling tramadol Allergy (Unknown, Verified 07/24/24 12:10) hives cefpodoxime Adverse Reaction (Intermediate, Verified 07/24/24 12:10) bradycardia, no energy sertraline Adverse Reaction (Intermediate, Verified 07/24/24 12:10) confused, yaya Diamox Sequels Adverse Reaction (Unknown, Verified 07/24/24 12:10) pain/tingling lisinopril Adverse Reaction (Unknown, Verified 07/24/24 12:10) dizziness Do you need a note to return to daycare/school/sports/work: No HPI EP Sore throat, cough, aches, head pressure HPI Details This is a 38-year-old patient who presents to the walk-in clinic with report of a 2 week history of upper respiratory symptoms and asthma exacerbation. She reports frequent productive cough with yellow/green sputum, sinus pressure/pain, body and headaches. She has been using her inhaler with some moderate relief. Has not taken anything otc. Denies fever or GI symptoms. Reports she coughs sp vigorously/frequently, that her ribs and chest are sore. She is having trouble sleeping as well. [facility] Medical History Recurrent finger dislocation Bilateral hand pain Migraine Morbid obesity UTI (urinary tract infection) Breakthrough bleeding associated with intrauterine device (IUD) Asthma Asthma Left ovarian cyst Morbid obesity due to excess calories Exposure to hepatitis C Insomnia GERD (gastroesophageal reflux disease) Peripheral vascular disease Iron deficiency anemia Irregular menses Well woman exam with routine gynecological exam Obstructive sleep apnea Fibromyalgia Tension headache Bipolar 1 disorder Hypertension Surgical History Hx of tubal ligation Family History Father Hypertension Lymphoma Myocardial infarct Diabetes mellitus Mother Epilepsy Asthma Sleep apnea Bipolar disorder Colon polyps Maternal Grandmother Diabetes mellitus Paternal Grandfather Pancreatic cancer Myocardial infarct Paternal Aunt Breast CA Sister No problems noted. Sister No problems noted. Brother Myocardial infarct Brother No problems noted. Daughter Seizure Anxiety Depression Asthma Migraine Daughter ADHD Daughter No problems noted. Paternal Uncle Schizophrenia Other Mental health disorder Social History Housing: Apartment Alcohol intake: never Patient Tobacco Use Status: Former Tobacco user Tobacco use type: Cigarette Years Smoked: 2010 stopped e-Cigarette/Vaping Use: Never Used Second Hand Smoke Exposure: No service: No Current occupational status: unemployed Current occupation: rt handed Sexual orientation: Straight/Heterosexual Gender identity: Female Cognitive needs: No Hearing needs: No Vision needs: No Female Reproductive History Menstrual Age of Menarche: 10 Review of Systems Const All systems reviewed & are unremarkable except as noted in HPI and below Physical Exam Vital Signs: Last Vital Signs Temp 98.0 F 07/24/24 12:09 Pulse 80 07/24/24 12:09 BP 130/84 07/24/24 12:09 Pulse Ox 98 07/24/24 12:09 Oxygen Delivery Method Room Air 07/24/24 12:09 Const General: cooperative and ill appearing acutely Nutritional Appearance: obese HEENT Head: Yes normal to inspection Ears: hearing grossly normal bilaterally, external ears normal and TM's normal bilaterally General nose exam: Normal external nose present Face and sinus: Yes sinus tenderness (frontal/maxillary) Mouth: Normal oral and palatal mucosa present Throat: Yes posterior oropharynx normal Neck Neck: Yes no lymphadenopathy Resp Effort & Inspection: normal respiratory effort and Actively coughing Quality: wet Auscultation: clear to auscultation bilaterally Cardio Palpation: normal PMI Rate: regular rate Rhythm: regular rhythm Skin General skin exam: no rashes or lesions noted Extrem General: Yes capillary refill normal and Yes no clubbing, cyanosis or edema Psych Appearance: grossly normal Mental Status: mental status grossly normal Speech and movement: Normal speech and movement present Assessment & Plan Assessment & Plan (1) Acute asthmatic bronchitis: Code(s): J45.909 - Unspecified asthma, uncomplicated Plan: We discussed a regimen of antibiotic, steroid, and benzonatate for her cough. She has an inhaler at home which she can use for p.r.n. use. 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 We reviewed indications, use, possible side effects of medications. Upon ordering medications, an allergy prompt was identified for steroids. I called the patient multiple times, however was not able to reach her. I was able, however to send the antibiotic and benzonatate. We reviewed adequate rest, hydration, healthy food/vitamin intake. If she does not improve with treatment, or if symptoms worsen/new symptoms develop, she can return to the clinic or go to the emergency department for evaluation. She verbalizes understanding and agrees to plan. Medications: New benzonatate 100 mg PO BID 7 days PRN 14 caps 0RF cough R05.9 - Cough, unspecified doxycycline hyclate 100 mg PO BID 7 days 14 caps 0RF J45.909 - Unspecified asthma, uncomplicated Coding Level of Care Code Est Pt Level 4 (29911) Diagnoses Acute asthmatic bronchitis J45.909
[2024-07-24 12:09] VITALS: BP 130/84; PULSE 80; TEMP 36.7; O2SAT 98
== END 2024-07-24 13:02 | disposition home or self-care (01) ==
PROVIDERS: PCP Internal Medicine; Visit Provider Nurse Practitioner Family
DX: J45.909 Unspecified asthma, uncomplicated (principal)

== ENCOUNTER → 2024-07-24 11:48 | Outpatient (BNVA) | payer OTHER, SELFPAY | PROVIDERS: PCP Internal Medicine | DX: J45.909 Unspecified asthma, uncomplicated (principal) | CPT/HCPCS: 99212 ==

== ENCOUNTER 2024-08-07 10:40 | Outpatient (AMB) | payer OTHER, SELFPAY ==
--- NOTE | 2024-08-07 10:46 | A.OFFPC_ITS ---
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 Allergies Iodinated Contrast Media [CONTRAST, IV] Allergy (Severe, Verified 08/07/24 10:47) Anaphylaxis bee pollen [bee stings] Allergy (Unknown, Verified 08/07/24 10:47) edema Benadryl Allergy (Unknown, Verified 08/07/24 10:47) edema, swelling citalopram [Celexa] Allergy (Unknown, Verified 08/07/24 10:47) edema hydrochlorothiazide Allergy (Unknown, Verified 08/07/24 10:47) unknown latex Allergy (Unknown, Verified 08/07/24 10:47) Swelling prednisolone Allergy (Unknown, Verified 08/07/24 10:47) unknown seafood Allergy (Unknown, Verified 08/07/24 10:47) Hives shellfish derived Allergy (Unknown, Verified 08/07/24 10:47) Swelling tramadol Allergy (Unknown, Verified 08/07/24 10:47) hives cefpodoxime Adverse Reaction (Intermediate, Verified 08/07/24 10:47) bradycardia, no energy sertraline Adverse Reaction (Intermediate, Verified 08/07/24 10:47) confused, yaya Diamox Sequels Adverse Reaction (Unknown, Verified 08/07/24 10:47) pain/tingling lisinopril Adverse Reaction (Unknown, Verified 08/07/24 10:47) dizziness Medication List - Last Reconciled 08/07/24 by Atif Milian MD albuterol sulfate 90 mcg/actuation (Ventolin HFA) 2 puffs inhalation Q6H PRN amlodipine 5 mg PO DAILY ascorbate calcium (vitamin C) 500 mg PO DAILY 90 days aspirin (Adult Aspirin Regimen) 81 mg PO DAILY cyanocobalamin (vitamin B-12) 1,000 mcg PO DAILY 90 days docusate sodium (Colace) 200 mg (2 x 100 mg) PO BEDTIME 90 days furosemide 20 mg PO DAILY 90 days galcanezumab-gnlm (Emgality Pen) 240 mg (2 mL) subcut ONCE 30 days levonorgestrel (Mirena) intrauterine meloxicam 15 mg PO DAILY mometasone (Asmanex Twisthaler) 1 inh inhalation QPM omeprazole 20 mg PO DAILY polyethylene glycol 3350 (Miralax) 17 grams PO DAILY [Rollator with seat and seat As directed] semaglutide 2 mg (0.75 mL) subcut QWEEK 30 days sumatriptan succinate 50 - 100 mg orally at onset of headache, may repeat in 2 hrs PRN; max 2 tabs per day or 4 tabs/week (may take with Ibuprofen) 30 days Tobacco use date assessed: 07/08/24 Dental Screening Dental Screen Date: 07/08/24 [facility] Medical History (Updated 08/07/24 @ 11:08 by Atif Milian MD) UTI (urinary tract infection) Recurrent finger dislocation Bilateral hand pain Migraine Morbid obesity Breakthrough bleeding associated with intrauterine device (IUD) Asthma Asthma Left ovarian cyst Morbid obesity due to excess calories Exposure to hepatitis C Insomnia GERD (gastroesophageal reflux disease) Peripheral vascular disease Iron deficiency anemia Irregular menses Well woman exam with routine gynecological exam Obstructive sleep apnea Fibromyalgia Tension headache Bipolar 1 disorder Hypertension Surgical History Hx of tubal ligation Family History Father Hypertension Lymphoma Myocardial infarct Diabetes mellitus Mother Epilepsy Asthma Sleep apnea Bipolar disorder Colon polyps Maternal Grandmother Diabetes mellitus Paternal Grandfather Pancreatic cancer Myocardial infarct Paternal Aunt Breast CA Sister No problems noted. Sister No problems noted. Brother Myocardial infarct Brother No problems noted. Daughter Seizure Anxiety Depression Asthma Migraine Daughter ADHD Daughter No problems noted. Paternal Uncle Schizophrenia Other Mental health disorder Social History Housing: Apartment Alcohol intake: never Patient Tobacco Use Status: Former Tobacco user Tobacco use type: Cigarette Years Smoked: 2010 stopped e-Cigarette/Vaping Use: Never Used Second Hand Smoke Exposure: No service: No Current occupational status: unemployed Current occupation: rt handed Sexual orientation: Straight/Heterosexual Gender identity: Female Cognitive needs: No Hearing needs: No Vision needs: No Female Reproductive History Menstrual Age of Menarche: 10 Questionnaire PHQ-9 Over the last 2 weeks, how often have you been bothered by any of the following problems? 1. Little interest or pleasure in doing things: several days 2. Feeling down, depressed, or hopeless: several days 3. Trouble falling or staying asleep, or sleeping too much: several days 4. Feeling tired or having little energy: several days 5. Poor appetite or overeating: several days 6. Feeling bad about yourself - or that you are a failure or have let yourself or your family down: several days 7. Trouble concentrating on things, such as reading the newspaper or watching television: not at all 8. Moving or speaking so slowly that other people could have noticed. Or the opposite - being so fidgety or restless that you have been moving around a lot more than usual: not at all 9. Thoughts that you would be better off or of hurting yourself in some way: not at all Total score: 6 Depression Screening Interpretation: Positive Depression Screening Done: Yes Source: Developed by Drs. Dakotah Faustin, Shaylee Giron, Bonilla Gomez and colleagues, with an educational berhane from [employer]. Thrive Questionnaire Date Thrive assessed: 07/08/24 JORI-7 AMB Questionnaire JORI-7 Date JORI - 7 assessed: 07/08/24 Source: Developed by Drs. Dakotah Faustin, Shaylee Giron, Bonilla Gomez and colleagues, with an educational berhane from [employer]. Physical exam (Primary Care) Vital Signs: Last Vital Signs Pulse 87 08/07/24 10:47 BP 130/76 08/07/24 10:47 Pulse Ox 98 08/07/24 10:47 Oxygen Delivery Method Room Air 08/07/24 10:47 BMI result Body Mass Index 53.1 Tobacco/Smoking Status: Tobacco use Status Tobacco use date assessed 07/08/24 08/07/24 10:56 Patient Tobacco Use Status Former Tobacco user 08/07/24 10:56 Tobacco use type Cigarette 08/07/24 10:56 e-Cigarette/Vaping Use Never Used 08/07/24 10:56 PHQ-9: PHQ-9 Score PHQ-9: Total score 6 08/07/24 10:56 Depression Screening Interpretation: Positive Thrive Assessment: Date of Thrive Assessment Date Thrive assessed 07/08/24 08/07/24 10:56 Const General: alert; No acute distress Eyes Conjunctivae: conjunctivae normal Resp Auscultation: clear to auscultation bilaterally Cardio Rate: regular rate Rhythm: regular rhythm GI Inspection: Yes normal to inspection Extrem General: Yes normal to inspection and No edema Coding Level of Care Code Est Pt Level 4 (15357) Complex EM visit Add On G2211 Diagnoses Hepatic steatosis K76.0 Obesity, morbid, BMI 50 or higher E66.01 Mild intermittent asthma without complication J45.20 Asthma complication type: uncomplicated Asthma persistence: intermittent Asthma severity: mild Bipolar 1 disorder F31.9 Obstructive sleep apnea G47.33 Essential hypertension I10 Hypertension type: essential hypertension Gastroesophageal reflux disease without esophagitis K21.9 Esophagitis presence: without esophagitis Allergic reaction T78.40XA UTI (urinary tract infection) N39.0 Assessment & Plan Assessment & Plan (1) Hepatic steatosis: Comment: February 2024Hepatomegaly, 16.6 cm. Increased hepatic parenchymal heterogeneity and echogenicity could be associated with hepatocellular disease/hepatic steatosis and substantially limits visualization. Correlation with liver function tests and clinical exam recommended to determine further management. Code(s): K76.0 - Fatty (change of) liver, not elsewhere classified Category: Medical Plan: Diet and exercise, patient needs to lose weight (2) Obesity, morbid, BMI 50 or higher: Code(s): E66.01 - Morbid (severe) obesity due to excess calories Category: Medical Plan: Diet and exercise (3) Asthma: Comment: SHE HAS HAD MILD INTERMITTENT BRONCHIAL ASTHMA, MOST LIKELY SECONDARY TO ENVIRONMENTAL ALLERGIES. [place] : ADVISED TO CONTINUE FLOVENT 110 2 PUFFS B.I.D.. AND USE ALBUTEROL HFA 2 PUFFS Q 4-6 HOURS ONLY P.R.N. Code(s): J45.909 - Unspecified asthma, uncomplicated Category: Medical Qualifiers: Asthma complication type: uncomplicated Asthma persistence: intermittent Asthma severity: mild Qualified Code(s): J45.20 - Mild intermittent asthma, uncomplicated Plan: Patient does have albuterol inhaler as needed with Asmanex (4) Bipolar 1 disorder: Comment: Anxiety disorder, PTSD, panic attacks, BHN (07/2021) FOR THIS REASON ALSO IT IS BETTER FOR HER TO USE THE CPAP. Code(s): F31.9 - Bipolar disorder, unspecified Category: Medical Plan: Continue with therapy (5) Obstructive sleep apnea: Comment: SHE HAS HAD MODERATE HE HAS SEVERE OBSTRUCTIVE SLEEP APNEA, CONFIRMED WITH THE SLEEP STUDIES IN 2018 AND 2020. HAS BEEN TREATED WITH CPAP., WHICH SHE DID NOT USE FOR ABOUT A YEAR. LAST SLEEP STUDY IN NOVEMBER 2021 SHOWS A MILD DEGREE OF ROCIO. BUT SHE DOES HAVE ASSOCIATED COMORBID CONDITIONS, AND WOULD BENEFIT FROM THE USE OF CPAP. PATIENT HAS STARTED USING THE CPAP ALREADY, WITH PRESSURE SETTING AUTO PAP MODE 5-20 CMS , USING FULLFACE MASK. SHE IS WELL VERSED WITH THE USE OF CPAP. WE WILL CONTACT DME PROVIDER AND, DOWNLOAD HER COMPLIANCE DATA. Code(s): G47.33 - Obstructive sleep apnea (adult) (pediatric) Category: Medical Plan: Continue to use the CPAP more than 4 hours a night and benefits from this. (6) Hypertension: Code(s): I10 - Essential (primary) hypertension Category: Medical Qualifiers: Hypertension type: essential hypertension Qualified Code(s): I10 - Essential (primary) hypertension Plan: Continue with blood pressure medication. Decrease salt intake and exercise on amlodipine 5 mg once a day (7) GERD (gastroesophageal reflux disease): Code(s): K21.9 - Gastro-esophageal reflux disease without esophagitis Category: Medical Qualifiers: Esophagitis presence: without esophagitis Qualified Code(s): K21.9 - Gastro-esophageal reflux disease without esophagitis Plan: Avoid the foods that causes that usually spicy foods, tomato products, juices, coffee, soda and foods that your sensitive to. After eating do not lie down, allow 3-4 hours before in lie down. And keep the head of bed above 30 degrees to avoid the acid from going up. (8) Allergic reaction: Code(s): T78.40XA - Allergy, unspecified, initial encounter Category: Medical (9) UTI (urinary tract infection): Code(s): N39.0 - Urinary tract infection, site not specified Category: Medical Plan History of Present Illness The patient is a 38-year-old female presenting with chest pains. She has been referred to cardiology for further evaluation, following a negative cardiopulmonary stress test in January 2022. The patient has a history of several chronic conditions, including morbid obesity, GERD, hypertension, obstructive sleep apnea, bipolar disorder, asthma, chronic migraine, and hepatic steatosis. Recently, the patient was treated for asthmatic bronchitis with doxycycline and Tessalon, and she reports ongoing nocturia without dysuria. She was advised on dietary and exercise modifications to aid weight reduction. Medications include Asmanex for asthma, albuterol as needed, amlodipine 5 mg daily, and reflux management with the impending increment to 2 mg. Current blood work shows low vitamin D status, white blood cells in urine, and otherwise normal parameters. Health Maintenance - Up-to-date with mammogram screening - Advised to follow a low-fat diet and increase exercise for weight management - Reflux management with planned increase to 2 mg - Vitamin D supplementation of 2000 units daily - Compliance encouraged with CPAP therapy for obstructive sleep apnea Social History - Advised low-fat diet to aid with weight management - Encouraged to increase exercise and physical activity Review of Systems - Cardiovascular: Reports chest pains - Respiratory: Denies current wheezing; reports no use of albuterol inhaler - Genitourinary: Reports nocturia (3-4 times per night) - Immunological: Reports allergies to seafood and bee stings Physical Exam Results - Blood work (May): Normal CBC, electrolytes, renal function, blood sugar, cholesterol; Vitamin D deficiency noted; Urine showed presence of white blood cells Plan The patient will continue her management of reflux with an increased dosage, and continue asthma maintenance with Asmanex and albuterol as needed. Given the vitamin D deficiency, 2000 units daily will be taken. Further urinalysis is planned to evaluate nocturia, and the patient has been equipped with an EpiPen for allergies. Hypertension is to be managed with amlodipine, with stress on a low-fat diet and increased exercise for weight management. The patient was encouraged to comply with CPAP therapy for sleep apnea. Patient was informed and verbally consented to the use of an ambient scribe for clinic note documentation during this visit. Discussion Notes I discussed with the patient the management plan for her chest pains, including the necessary cardiology follow-up. Medication adherence, specifically with her gastroesophageal reflux disease and hypertension treatment, was discussed. The option to increase her medication dose was provided and consent was obtained. I explained the risks and benefits of vitamin D supplementation and issued a prescription for it. For nocturia, a follow-up urinalysis was suggested. We discussed the importance of compliance with the CPAP machine. For her allergies, I educated on EpiPen usage and completed a prescription referral. Patient Instructions - Continue amlodipine 5 mg daily for blood pressure control. - Increase reflux medication dosage to 2 mg as discussed. - Use Asmanex regularly and albuterol as needed for asthma. - Start vitamin D supplementation of 2000 units daily. - Comply with CPAP machine use for at least 4 hours each night. - Follow a low-fat diet, exercise more, and monitor weight. - Carry an EpiPen and avoid allergen exposure. - Complete follow-up urinalysis as scheduled. - Monitor for changes in chest pain and seek cardiology consult. Orders: Orders UA CC w/rflx Micro + Cult Today N39.0 - Urinary tract infection, site not specified, R30.0 - Dysuria Referrals Allergy & Immunology Referral T78.40XA - Allergy, unspecified, initial encounter Medications: New cholecalciferol (vitamin D3) 50 mcg PO DAILY 90 days 90 caps 3RF E55.9 - Vitamin D deficiency, unspecified cholecalciferol (vitamin D3) 50 mcg PO DAILY 90 caps 3RF 90 days E55.9 - Vitamin D deficiency, unspecified epinephrine (EpiPen 2-Marshal) for 2 doses 0.3 mg (0.3 mL) IM Q10M PRN 2 ea 0RF anaphylaxis T78.40XA - Allergy, unspecified, initial encounter Changed From semaglutide 1 mg (0.75 mL) subcut QWEEK 3 mL 2RF M24.446 - Recurrent dislocation, unspecified finger To semaglutide 2 mg (0.75 mL) subcut QWEEK 3.75 mL 2RF 30 days M24.446 - Recurrent dislocation, unspecified finger
[2024-08-07 10:47] VITALS: BP 130/76; PULSE 87; O2SAT 98; BMI 53.1
== END 2024-08-07 11:54 | disposition home or self-care (01) ==
LOC: HO.HMCH 10:41
PROVIDERS: PCP Internal Medicine; Visit Provider Internal Medicine
DX: K76.0 Fatty (change of) liver, not elsewhere classified (principal); E66.01 Morbid (severe) obesity due to excess calories; F31.9 Bipolar disorder, unspecified; Z68.43 Body mass index [BMI] 50.0-59.9, adult; J45.20 Mild intermittent asthma, uncomplicated; G47.33 Obstructive sleep apnea (adult) (pediatric); I10 Essential (primary) hypertension; K21.9 Gastro-esophageal reflux disease without esophagitis; T78.40XA Allergy, unspecified, initial encounter; N39.0 Urinary tract infection, site not specified

== ENCOUNTER → 2024-08-07 10:40 | Outpatient (BNVA) | payer OTHER, SELFPAY | PROVIDERS: PCP Internal Medicine; Visit Provider Internal Medicine | DX: K76.0 Fatty (change of) liver, not elsewhere classified (principal); E66.01 Morbid (severe) obesity due to excess calories; J45.20 Mild intermittent asthma, uncomplicated; F31.9 Bipolar disorder, unspecified; G47.33 Obstructive sleep apnea (adult) (pediatric); I10 Essential (primary) hypertension; K21.9 Gastro-esophageal reflux disease without esophagitis; N39.0 Urinary tract infection, site not specified; T78.40XA Allergy, unspecified, initial encounter | CPT/HCPCS: 99212 ==

== ENCOUNTER 2024-09-28 11:31 | Emergency (ER) | payer OTHER, SELFPAY ==
--- NOTE | ~2024-09-28 | XR_ITS ---
EXAMINATION: XR CHEST CLINICAL INFORMATION: chest pain COMPARISON: None available. TECHNIQUE: 2 views of the chest were obtained. FINDINGS: The cardiac, hilar, and mediastinal contours are normal. The lungs are clear bilaterally. There is no pneumothorax or pleural effusion. There is no focal osseous or soft tissue abnormality. XR/XR chest 2V IMPRESSION: No active disease. Normal chest. Electronically signed by: Theo Sevilla MD 09/28/2024 12:17 PM EDT
--- NOTE | 2024-09-28 11:44 | ED.GENADULT ---
HPI - General Adult General Chief complaint: Chest Pain Stated complaint: high bp Time Seen by Provider: 09/28/24 12:39 Source: patient Mode of arrival: ambulatory Limitations: no limitations History of Present Illness ED Provider: HPI narrative: 38-year-old female, went on to her appointment for weight loss, forgot to take her medications for high blood pressure, noted to be hypotensive in the office also disclosed that she was having headache and nonspecific chest pain for the past 4 days, she states she has this frequently and sometimes she forgets to take her medications, pain nonradiating not associated with nausea or vomiting or diaphoresis. Related Data Home Medications ?Medication ?Instructions ?Recorded ?Confirmed aspirin 81 mg tablet,delayed 81 mg PO DAILY 03/08/20 08/07/24 release (Adult Aspirin Regimen) levonorgestrel 21 mcg/24 hr (up to intrauterine 04/08/20 08/07/24 8 years) 52 mg intrauterine device (Mirena) levocetirizine 5 mg tablet 5 mg PO DAILY 09/28/24 losartan 50 mg tablet 50 mg PO DAILY 09/28/24 Previous Rx's ?Medication ?Instructions ?Recorded Rollator with seat and seat #1 ea 09/01/21 polyethylene glycol 3350 17 17 g PO DAILY #510 grams 04/20/22 gram/dose oral powder (Miralax) galcanezumab-gnlm 120 mg/mL 240 mg (2 mL) subcut ONCE 30 days 06/10/23 subcutaneous pen injector #2 mL (Emgality Pen) docusate sodium 100 mg capsule 200 mg (2 x 100 mg) PO BEDTIME 90 05/05/24 (Colace) days #180 caps furosemide 20 mg tablet 20 mg PO DAILY 90 days #90 tabs 06/09/24 ascorbate calcium (vitamin C) 500 500 mg PO DAILY 90 days #90 tabs 07/21/24 mg tablet cyanocobalamin (vitamin B-12) 1,000 mcg PO DAILY 90 days #90 caps 07/21/24 1,000 mcg capsule cholecalciferol (vitamin D3) 50 50 mcg PO DAILY 90 days #90 caps 08/07/24 mcg (2,000 unit) capsule epinephrine 0.3 mg/0.3 mL 0.3 mg (0.3 mL) IM Q10M PRN 08/07/24 injection, auto-injector (EpiPen anaphylaxis #2 ea 2-Marshal) semaglutide 2 mg/dose (8 mg/3 mL) 2 mg (0.75 mL) subcut QWEEK 30 08/07/24 subcutaneous pen injector days #3.75 mL sumatriptan succinate 100 mg tablet 50 - 100 mg (0.5 - 1 x 100 mg) PO 08/07/24 .COMPLEX PRN migraine headache 30 days #12 tabs albuterol sulfate 90 mcg/actuation 2 puff inhalation Q6H PRN for 08/08/24 aerosol inhaler (Ventolin HFA) wheezing #18 grams mometasone 220 mcg/actuation(30 1 inh inhalation QPM #1 ea 08/08/24 doses) breath activated powder inhaler (Asmanex Twisthaler) amlodipine 5 mg tablet 5 mg PO DAILY #90 tabs 09/15/24 omeprazole 20 mg capsule,delayed 20 mg PO DAILY #90 caps 09/15/24 release meloxicam 15 mg tablet 15 mg PO DAILY #30 tabs 09/24/24 Allergies Allergy/AdvReac Type Severity Reaction Status Date / Time Iodinated Contrast Media Allergy Severe Anaphylaxis Verified 09/28/24 11:48 [CONTRAST, IV] bee pollen [bee stings] Allergy Unknown edema Verified 09/28/24 11:48 Benadryl Allergy Unknown edema, Verified 09/28/24 11:48 swelling citalopram [Celexa] Allergy Unknown edema Verified 09/28/24 11:48 hydrochlorothiazide Allergy Unknown unknown Verified 09/28/24 11:48 latex Allergy Unknown Swelling Verified 09/28/24 11:48 prednisolone Allergy Unknown unknown Verified 09/28/24 11:48 seafood Allergy Unknown Hives Verified 09/28/24 11:48 shellfish derived Allergy Unknown Swelling Verified 09/28/24 11:48 tramadol Allergy Unknown hives Verified 09/28/24 11:48 cefpodoxime AdvReac Intermediate bradycardia, Verified 09/28/24 11:48 no energy sertraline AdvReac Intermediate confused, Verified 09/28/24 11:48 yaya Diamox Sequels AdvReac Unknown pain/tingli Verified 09/28/24 11:48 ng lisinopril AdvReac Unknown dizziness Verified 09/28/24 11:48 Review of Systems Constitutional: Constitutional: Reports as per [facility] Past Medical History Medical History (Updated 09/28/24 @ 13:31 by Sylvester Stubbs DO) UTI (urinary tract infection) Recurrent finger dislocation Bilateral hand pain Migraine Morbid obesity Breakthrough bleeding associated with intrauterine device (IUD) Asthma Asthma Left ovarian cyst Morbid obesity due to excess calories Exposure to hepatitis C Insomnia GERD (gastroesophageal reflux disease) Peripheral vascular disease Iron deficiency anemia Irregular menses Well woman exam with routine gynecological exam Obstructive sleep apnea Fibromyalgia Tension headache Bipolar 1 disorder Hypertension Surgical History Hx of tubal ligation Family History Family History Father Hypertension Lymphoma Myocardial infarct Diabetes mellitus Mother Epilepsy Asthma Sleep apnea Bipolar disorder Colon polyps Maternal Grandmother Diabetes mellitus Paternal Grandfather Pancreatic cancer Myocardial infarct Paternal Aunt Breast CA Sister No problems noted. Sister No problems noted. Brother Myocardial infarct Brother No problems noted. Daughter Seizure Anxiety Depression Asthma Migraine Daughter ADHD Daughter No problems noted. Paternal Uncle Schizophrenia Other Mental health disorder Social History Social History Housing: Apartment Alcohol intake: never Patient Tobacco Use Status: Former Tobacco user Tobacco use type: Cigarette Years Smoked: 2010 stopped e-Cigarette/Vaping Use: Never Used Second Hand Smoke Exposure: No service: No Current occupational status: unemployed Current occupation: rt handed Sexual orientation: Straight/Heterosexual Gender identity: Female Cognitive needs: No Hearing needs: No Vision needs: No Physical Exam ED Vital Signs: Vital Signs - 24 hr 09/28/24 11:45 09/28/24 12:31 Temperature 97.3 F 98.1 F Pulse Rate 79 72 Respiratory Rate 18 18 Blood Pressure 233/149 H 188/119 H Pulse Oximetry 100 98 Oxygen Delivery Method Room Air Room Air BMI result Body Mass Index 54.1 Const Other: Gen: ?Overall well-appearing patient Neck: Supple, no LAD CV: RRR, no obvious murmurs appreciated Resp: ?No wheezing rales rhonchi no stridor moving air well Abd: ?Bowel sounds are present, no tenderness no rebound no rigidity MSK: FROM, strength 5/5 all extremities Skin: Warm, dry, intact, Neuro: ?Alert and oriented x3, moving upper and lower extremities symmetrically, no obvious facial asymmetry noted Course Course Course Narrative: This is an RME: Additional HPI, ROS, PE not included below will be deferred to primary provider. RME assessment and note performed by: Xin Jimenez PA-C This is a [id number]-female who presents to the ER with concerns for elevated blood pressure. Reports that she was in weight management and was told to come down here as her blood pressure was elevated. Reports that over the last 4-5 days she has had headaches and chest pain intermittently. No blurred vision or double vision. Recent addition of Dulera inhaler 3 weeks ago. On amlodipine and losartan. BP 233/149 in triage. Advised charge nurse to bring pt back mahesh Plan: Labs, EKG, cxr, further Er eval needed Medical Decision Making Medical Decision Making [facility] Narrative: Overall patient is well-appearing, there is no evidence for stroke-like presentation, this is not a headache of sudden intensity with associated with hypotension to suspect subarachnoid hemorrhage, hypotension is due to not take any medications earlier today at the time of my evaluation at bedside she was 181/113, and as far as the chest pain she states these a frequent symptoms that she experiences, her ECG is nondiagnostic for ACS, we will check cardiac enzyme we will continue to monitor anticipating discharge. Differential Diagnosis Differential Diagnoses: The differential diagnosis associated with the presentation includes Subarachnoid hemorrhage, end-organ damage from hypertension, ACS, EDUARDO, stroke Admission/Observation Consideration of admission/observation: Escalation of care including admission/observation considered Lab Data [facility] Lab Attestation statement: I reviewed the patient's lab results. 09/28/24 12:08 09/28/24 12:07 Labs: Lab Results 09/28/24 09/28/24 Range/Units 12:07 12:08 WBC 10.8 (4.8-10.8) X10*3/uL RBC 5.11 (4.20-5.50) X10*6/uL Hgb 14.2 (12.0-16.0) g/dl Hct 43.3 (37.0-47.0) % MCV 84.7 (80.0-98.0) fL MCH 27.8 (27.0-33.0) pg MCHC 32.8 (31.0-35.0) g/dl RDW 13.6 (11.0-16.0) % Plt Count 377 (160-400) X10*3/uL MPV 9.2 L (9.4-12.3) fL Immature Gran % (Auto) 0.4 (0.0-0.4) % Neut % (Auto) 70.1 (45-73) % Lymph % (Auto) 20.9 (20-40) % Cross % (Auto) 4.8 (2-11) % Eos % (Auto) 3.2 (0-4) % Baso % (Auto) 0.6 (0-2) % Lymph # (Auto) 2.3 (1.2-4.9) X10*3/uL Cross # (Auto) 0.5 (0.1-1.2) X10*3/uL Eos # (Auto) 0.4 (0.0-0.4) X10*3/uL Baso # (Auto) 0.1 (0.0-0.2) X10*3/uL Abs Immat Gran (auto) 0.04 H (0.00-0.03) X10*3/uL Absolute Neuts (auto) 7.6 (2.0-8.3) x10*3/uL Absolute Nucleated RBC 0.020 H (0.0-0.012) X10*3/uL Nucleated RBC % (auto) 0.2 (0.0-0.2) /100WBC Sodium 139 (135-145) mmol/L Potassium 3.7 (3.3-5.1) mmol/L Chloride 103 (96-108) mmol/L Carbon Dioxide 28 (22-29) mmol/L Anion Gap 12 (12-20) BUN 9 (9-16) mg/dL Creatinine 0.65 (0.5-1.4) mg/dL Estim Creat Clear Calc 140.8 Estimated GFR > 60 Random Glucose 119 H (60-115) mg/dL Calcium 9.4 (8.4-10.2) mg/dL Magnesium 1.7 (1.6-2.6) mg/dL Total Bilirubin 0.7 (0.0-1.0) mg/dL Direct Bilirubin 0.2 (0.0-0.5) mg/dL AST 23 (5-31) U/L ALT 19 (0-31) U/L Alkaline Phosphatase 118 H (39-117) U/L Troponin I High Sens < 2.7 (<3.5-17.0) ng/L B-Natriuretic Peptide 12 (<100) pg/mL Total Protein 7.8 (6.5-8.0) g/dL Albumin 4.1 (3.5-5.0) g/dL Influenza Type A (PCR) NEGATIVE (Negative) Influenza Type B (PCR) NEGATIVE (Negative) RSV RNA Qual (PCR) NEGATIVE (Negative) SARS-CoV-2 RNA (RT-PCR) NEGATIVE (Negative) Independent Interpretation I performed an independent interpretation of an: EKG (76 beats per minute, otherwise normal ECG without dysrhythmia, AV ericka blocks or ST-T changes to suspect underlying ACS, my independent interpretation) Radiology Impression Discussion of test interpretation with radiology: I have reviewed the radiologist's reading. Radiologist Impression: XR/XR chest 2V IMPRESSION: No active disease. Normal chest. Chronic Conditions Patient?s care impacted by: Hypertension Discharge Plan Discharge Clinical Impression: Chronic hypertension, Chest pain, precordial Patient Disposition: Home, Self-Care Additional Instructions: Evaluated with chest pain, elevated blood pressure, headache, please take your medications on regular basis, your workup today included chest x-ray, EKG cardiac enzymes, the rest of the blood work all of which has been reassuring, your blood pressure is coming down, you did receive your medication for blood pressure in the ER, see my discharge instructions as below, follow up with the PCP and please taking medications on a regular basis. Follow-Up Care: ? Primary Care Provider (PCP) or Executive Vice President: It is important to follow up with your primary care provider or storage specialist within the next 14 to 30 days. This follow-up is crucial to ensure that any underlying conditions are managed appropriately and to discuss any further testing that may be needed. ? Notification: If you have an established PCP or storage specialist, they have been notified of your ED visit to facilitate continuity of care. Self-Care and Monitoring: ? Medications: Continue taking any prescribed medications as directed. If you have been given new medications, ensure you understand how and when to take them. ? Activity: Resume normal activities as tolerated. Avoid strenuous activities until you have discussed them with your healthcare provider. ? Diet: Maintain a heart-healthy diet, low in saturated fats, cholesterol, and sodium. Red Flags: Seek immediate medical attention if you experience any of the following: ? New or worsening chest pain ? Shortness of breath ? Dizziness or fainting ? Pain radiating to your arm, neck, or jaw ? Sweating, nausea, or vomiting Additional Testing: In some cases, outpatient testing such as a stress test or imaging may be recommended to further evaluate your heart health. Your follow-up provider will discuss this with you if necessary. Mental Health: Anxiety and stress can contribute to chest pain. Consider discussing any concerns with your healthcare provider, who may recommend screening for anxiety or depression and appropriate management strategies. Contact Information: If you have any questions or concerns before your follow-up appointment, please contact your healthcare provider or the ED where you were evaluated. Summary: You have been discharged from the ED with a low risk of serious heart conditions. Follow the instructions above, attend your follow-up appointments, and seek immediate care if you experience any red flags. Prescriptions: No Action (DME) Rollator with seat and seat See Rx Instructions .Route .MEDSUPPLY Qty: 1 0RF Rx Instructions: As directed polyethylene glycol 3350 [Miralax] 17 gram/dose powder 17 g PO DAILY Qty: 510 6RF Emgality Pen 120 mg/mL pen injector 240 mg subcut ONCE 30 Days Qty: 2 0RF Rx Instructions: Loading dose 240 mg x 1, followed by maintenance dose 120 mg subcu q.month docusate sodium [Colace] 100 mg capsule 200 mg PO BEDTIME 90 Days Qty: 180 5RF furosemide 20 mg tablet 20 mg PO DAILY 90 Days Qty: 90 1RF ascorbate calcium (vitamin C) 500 mg tablet 500 mg PO DAILY 90 Days Qty: 90 3RF cyanocobalamin (vitamin B-12) 1,000 mcg capsule 1,000 mcg PO DAILY 90 Days Qty: 90 2RF sumatriptan succinate 100 mg tablet 50 - 100 mg PO .COMPLEX PRN (Reason: migraine headache) 30 Days Qty: 12 6RF Rx Instructions: 50 - 100 mg orally at onset of headache, may repeat in 2 hrs PRN; max 2 tabs per day or 4 tabs/week (may take with Ibuprofen) Asmanex Twisthaler 220 mcg/ actuation (30) aerosol powdr breath activated 1 inh inhalation QPM Qty: 1 0RF albuterol sulfate [Ventolin HFA] 90 mcg/actuation HFA aerosol inhaler 2 puff inhalation Q6H PRN (Reason: for wheezing) Qty: 18 3RF omeprazole 20 mg capsule,delayed release(DR/EC) 20 mg PO DAILY Qty: 90 1RF amlodipine 5 mg tablet 5 mg PO DAILY Qty: 90 0RF meloxicam 15 mg tablet 15 mg PO DAILY Qty: 30 0RF aspirin [Adult Aspirin Regimen] 81 mg tablet,delayed release (DR/EC) 81 mg PO DAILY Mirena 20 mcg/24 hours (6 yrs) 52 mg intrauterine device intrauterine semaglutide 2 mg/dose (8 mg/3 mL) pen injector 2 mg subcut QWEEK 30 Days Qty: 3.75 2RF epinephrine [EpiPen 2-Marshal] 0.3 mg/0.3 mL auto-injector 0.3 mg IM Q10M PRN (Reason: anaphylaxis) Qty: 2 0RF Rx Instructions: for 2 doses cholecalciferol (vitamin D3) 50 mcg (2,000 unit) capsule 50 mcg PO DAILY 90 Days Qty: 90 3RF losartan 50 mg tablet 50 mg PO DAILY levocetirizine 5 mg tablet 5 mg PO DAILY Print Language: [place]
[2024-09-28 11:45] VITALS: BP 233/149; PULSE 79; RESP 18; TEMP 36.3; O2SAT 100; BMI 54.1
--- NOTE | 2024-09-28 11:48 | ECG_ITS ---
Test Reason : cp Blood Pressure : */* mmHG Vent. Rate : 76 BPM Atrial Rate : 76 BPM P-R Int : 150 ms QRS Dur : 96 ms QT Int : 398 ms P-R-T Axes : 35 9 -4 degrees QTcB Int : 447 ms Normal sinus rhythm Cannot rule out Anterior infarct , age undetermined Abnormal ECG When compared with ECG of 27-Dec-2017 21:08, Nonspecific T wave abnormality now evident in Anterolateral leads Referred By: Xin Jimenez Electronically Signed By: SHIRLENE MULLINS
[2024-09-28 12:19] LABS: MANUAL DIFF FLAG NO
[2024-09-28 12:20] LABS: Basophils Absolute Auto 0.1 X10*3/uL (0.0-0.2); Basophils Percent Auto 0.6 % (0-2); Eosinophils Absolute Auto 0.4 X10*3/uL (0.0-0.4); Eosinophils Percent Auto 3.2 % (0-4); Hematocrit 43.3 % (37.0-47.0); Hemoglobin 14.2 g/dl (12.0-16.0); Imm Gran Abs Auto 0.04 X10*3/uL (0.00-0.03); Imm Gran Pct Auto 0.4 % (0.0-0.4); Lymphocytes Absolute Auto 2.3 X10*3/uL (1.2-4.9); Lymphocytes Percent Auto 20.9 % (20-40); Mean Corpuscular HGB Conc 32.8 g/dl (31.0-35.0); Mean Corpuscular Hemoglobin 27.8 pg (27.0-33.0); Mean Corpuscular Volume 84.7 fL (80.0-98.0); Mean Platelet Volume 9.2 fL (9.4-12.3); Monocytes Absolute Auto 0.5 X10*3/uL (0.1-1.2); Monocytes Percent Auto 4.8 % (2-11); NRBC Pct Auto 0.2 /100WBC (0.0-0.2); Neutrophils Absolute Auto 7.6 x10*3/uL (2.0-8.3); Neutrophils Percent Auto 70.1 % (45-73); Platelet Count 377 X10*3/uL (160-400); Red Blood Count 5.11 X10*6/uL (4.20-5.50); Red Cell Distribution Width 13.6 % (11.0-16.0); White Blood Count 10.8 X10*3/uL (4.8-10.8)
[2024-09-28 12:31] VITALS: BP 188/119; PULSE 72; RESP 18; TEMP 36.7; O2SAT 98
[2024-09-28 12:38] LABS: Alanine Aminotransferase 19 U/L (0-31); Albumin Level 4.1 g/dL (3.5-5.0); Alkaline Phosphatase 118 U/L (39-117); Anion Gap 12 (12-20); Aspartate Amino Transferase 23 U/L (5-31); Bilirubin Direct 0.2 mg/dL (0.0-0.5); Bilirubin Total 0.7 mg/dL (0.0-1.0); Blood Urea Nitrogen 9 mg/dL (9-16); Calcium 9.4 mg/dL (8.4-10.2); Carbon Dioxide 28 mmol/L (22-29); Chloride 103 mmol/L (96-108); Creatinine Clr Calc Pharmacy 140.8; Estimated Glomerular Filt Rate > 60; Glucose Random 119 mg/dL (60-115); Magnesium 1.7 mg/dL (1.6-2.6); Potassium 3.7 mmol/L (3.3-5.1); Sodium 139 mmol/L (135-145); Total Protein 7.8 g/dL (6.5-8.0)
[2024-09-28 12:44] LABS: B Type Natriuretic Peptide 12 pg/mL (<100)
[2024-09-28 12:47] LABS: Troponin-I High Sensitivity < 2.7 ng/L (<3.5-17.0)
[2024-09-28 13:05] LABS: Influenza A PCR NEGATIVE (Negative); Influenza B PCR NEGATIVE (Negative); Resp Syncy Virus RNA Qual PCR NEGATIVE (Negative); SARS COV2 PCR INHOUSE NEGATIVE (Negative)
[2024-09-28] MEDS: Losartan Potassium 50 MG TABLET PO (13:26)
[2024-09-28] MEDS: amLODIPine Besylate 5 MG TABLET PO (13:26)
[2024-09-28 13:37] VITALS: BP 194/122; PULSE 71; RESP 22; TEMP 36.4; O2SAT 100
[2024-09-28 13:39] VITALS: BP 194/122; PULSE 71; RESP 22; TEMP 36.4; O2SAT 100
== END 2024-09-28 13:46 | disposition home or self-care (01) ==
LOC: HO.ED 13:36
PROVIDERS: Physician Assistant Medical; Emergency Provider Emergency Medicine; PCP Internal Medicine
DX: R07.89 Other chest pain (principal); I10 Essential (primary) hypertension; Z79.899 Other long term (current) drug therapy; Z03.818 Encounter for observation for suspected exposure to other biological agents ruled out
CPT/HCPCS: 0241U; 71046; 80048; 80076; 83735; 83880; 84484; 85025; 93005; 99283; 99285

== ENCOUNTER → 2024-09-28 11:48 | Outpatient (BNV) | payer OTHER, SELFPAY | PROVIDERS: Emergency Provider Emergency Medicine; PCP Internal Medicine; Visit Provider Internal Medicine | DX: R94.31 Abnormal electrocardiogram [ECG] [EKG] (principal); R07.9 Chest pain, unspecified | CPT/HCPCS: 93010 ==

== ENCOUNTER → 2024-09-28 11:48 | Outpatient (BNV) | payer OTHER, SELFPAY | PROVIDERS: Emergency Provider Emergency Medicine; PCP Internal Medicine; Visit Provider Radiology Diagnostic Radiology | DX: R07.9 Chest pain, unspecified (principal) | CPT/HCPCS: 71046 ==

== ENCOUNTER 2024-10-21 08:22 | Outpatient (AMB) | payer OTHER, SELFPAY ==
--- NOTE | 2024-10-21 09:56 | MHC.OFFVISWM ---
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 Allergies Iodinated Contrast Media (CONTRAST, IV) Allergy (Severe, Verified 10/21/24 09:56) Anaphylaxis bee pollen (bee stings) Allergy (Unknown, Verified 10/21/24 09:56) edema Benadryl Allergy (Unknown, Verified 10/21/24 09:56) edema, swelling citalopram (Celexa) Allergy (Unknown, Verified 10/21/24 09:56) edema hydrochlorothiazide Allergy (Unknown, Verified 10/21/24 09:56) unknown latex Allergy (Unknown, Verified 10/21/24 09:56) Swelling prednisolone Allergy (Unknown, Verified 10/21/24 09:56) unknown seafood Allergy (Unknown, Verified 10/21/24 09:56) Hives shellfish derived Allergy (Unknown, Verified 10/21/24 09:56) Swelling tramadol Allergy (Unknown, Verified 10/21/24 09:56) hives cefpodoxime Adverse Reaction (Intermediate, Verified 10/21/24 09:56) bradycardia, no energy sertraline Adverse Reaction (Intermediate, Verified 10/21/24 09:56) confused, yaya Diamox Sequels Adverse Reaction (Unknown, Verified 10/21/24 09:56) pain/tingling lisinopril Adverse Reaction (Unknown, Verified 10/21/24 09:56) dizziness Medication List - Last Reconciled 10/21/24 by Jalen Perez MD albuterol sulfate 90 mcg/actuation (Ventolin HFA) 2 puffs inhalation Q6H PRN amlodipine 5 mg PO DAILY ascorbate calcium (vitamin C) 500 mg PO DAILY 90 days aspirin (Adult Aspirin Regimen) 81 mg PO DAILY cholecalciferol (vitamin D3) 50 mcg PO DAILY 90 days cyanocobalamin (vitamin B-12) 1,000 mcg PO DAILY 90 days docusate sodium (Colace) 200 mg (2 x 100 mg) PO BEDTIME 90 days epinephrine (EpiPen 2-Marshal) 0.3 mg (0.3 mL) IM Q10M PRN furosemide 20 mg PO DAILY 90 days galcanezumab-gnlm (Emgality Pen) 240 mg (2 mL) subcut ONCE 30 days levocetirizine 5 mg PO DAILY levonorgestrel (Mirena) intrauterine losartan 50 mg PO DAILY meloxicam 15 mg PO DAILY mometasone (Asmanex Twisthaler) 1 inh inhalation QPM omeprazole 20 mg PO DAILY polyethylene glycol 3350 (Miralax) 17 grams PO DAILY [Rollator with seat and seat As directed] semaglutide 2 mg (0.75 mL) subcut QWEEK 30 days sumatriptan succinate 50 - 100 mg orally at onset of headache, may repeat in 2 hrs PRN; max 2 tabs per day or 4 tabs/week (may take with Ibuprofen) 30 days HPI HPI 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: Details: Start time: 9.53am, End time: 10.38am ?I spent 40 minutes speaking with the patient on the phone plus an additional 5 minutes reviewing and updating records for a total of 45 minutes HPI Comments Details: Previous weight loss efforts: Ozempic for 8 months without weight loss Wakes up 6am: , Sleeps: 12am Breakfast: skips Lunch: skips Dinner: 6pm (salmon, rice, beans) Snacks: (candies or cookies, fruit before dinner), 9pm (cookies with milk) Exercise: Stepper tracking calories Beverages: Coffee/Tea: none, soda: rarely, juice: 5/wk (1-2 cups/d), ETOH: none PFSH Medical History (Updated 09/29/24 @ 00:00 by Isidra Alcaraz) UTI (urinary tract infection) Recurrent finger dislocation Bilateral hand pain Migraine Morbid obesity Breakthrough bleeding associated with intrauterine device (IUD) Asthma Asthma Left ovarian cyst Morbid obesity due to excess calories Exposure to hepatitis C Insomnia GERD (gastroesophageal reflux disease) Peripheral vascular disease Iron deficiency anemia Irregular menses Well woman exam with routine gynecological exam Obstructive sleep apnea Fibromyalgia Tension headache Bipolar 1 disorder Hypertension Surgical History Hx of tubal ligation Family History Father Hypertension Lymphoma Myocardial infarct Diabetes mellitus Mother Epilepsy Asthma Sleep apnea Bipolar disorder Colon polyps Maternal Grandmother Diabetes mellitus Paternal Grandfather Pancreatic cancer Myocardial infarct Paternal Aunt Breast CA Sister No problems noted. Sister No problems noted. Brother Myocardial infarct Brother No problems noted. Daughter Seizure Anxiety Depression Asthma Migraine Daughter ADHD Daughter No problems noted. Paternal Uncle Schizophrenia Other Mental health disorder Social History Housing: Apartment Alcohol intake: never Patient Tobacco Use Status: Former Tobacco user Tobacco use type: Cigarette Years Smoked: 2010 stopped e-Cigarette/Vaping Use: Never Used Second Hand Smoke Exposure: No service: No Current occupational status: unemployed Current occupation: rt handed Sexual orientation: Straight/Heterosexual Gender identity: Female Cognitive needs: No Hearing needs: No Vision needs: No Female Reproductive History Menstrual Age of Menarche: 10 Physical Exam Vital Signs: BMI result Body Mass Index 53.8 Telehealth Telehealth Telehealth Platform: Telephone Location of provider rendering services: practice address Location of patient: address on file Patient Identification confirmed using: Name, : Yes Telehealth method: voice only Patient verbally consented to treatment: Yes Patient verbally consented to billing insurance company: Yes Patient informed of any privacy concerns related to visit: Yes Minutes spent on Phone/Video with Pt.: 45 Assessment & Plan Assessment & Plan (1) Obesity, morbid, BMI 50 or higher: Code(s): E66.01 - Morbid (severe) obesity due to excess calories Category: Medical Plan: 1.? Plan for lap sleeve gastrectomy. If diaphragmatic or ventral hernias are present at time of surgery, these will be repaired laparoscopically as well. I emphasized the importance of close follow-up, adherence to instructions and good communication. The surgery does not replace the need to change your lifestlyle which is the cause of the obesity problem. The surgery provides the motivation to try again to change your lifestyle, it reduces the appetite and make the transition to a better lifestyle easier and doubles the amount of weight you would lose compared to doing the lifestyle change without the surgery. You will need to be on a liquid diet with protein shakes for 2 weeks before surgery to maximize weight loss and boost your nutritional status to recover better from surgery and also for the first two weeks after surgery to let the stomach heal before we introduce other foods. After the first 2 weeks we will introduce protein bars and soft foods like scrambled eggs, cottage cheese and yogurt and after the 6th week will introduce meat, fish and cooked vegetables in small amounts. Over time you should be able to eat everything in small amounts. Side effects like nausea, vomiting, heartburn or abdominal pain are not common in the practice unless you are not following in the practice. This operation requires lifetime commitment to following in our practice and communication with me. You will much less weight and experience side effects if you don?t communicate or not following in the practice. Complications are rare and in our practice is about 1/10 of the national average. However, you can develop bleeding that may require transfusion (hasn?t happened for year in the practice), you may from complications (we did not have any deaths in the practice) and infections. Infections are usually a result of breakdown in communication or not understanding or following directions correctly. They are difficult to treat, they can happen during the first 6 weeks, they may require to be in the hospital for weeks or even months, not being able to eat by mouth and you may have drains and surgeries to try and correct the issue. Other risks and complications include possible conversion to an open procedure, leaks, small bowel obstruction, blood clots, cardiac, or pulmonary complications, as long term care pharmacist complications such as ulcers, insufficient weight loss and vitamin deficiencies. 2.? Nutritional counseling. Start with one premade PREMIER protein (buy at [employer]) shake (mix 4oz of PREMIER shake with 4oz almond milk) at 7am-9am, one protein bar (Fit Crunch protein bars, buy at [employer]) at 10am-12pm, another premade PREMIER protein shake (mix 4oz of PREMIER shake with 4oz almond milk) at 1pm-3pm, another [employer]unch protein bar at 4pm-6pm, dinner at 7pm (10 forks of protein and 10 forks of salad/vegetables) and one more premade PREMIER protein shake (mix 4oz of PREMIER shake with 4oz almond milk) at 9pm-11pm So you do 3 protein shakes, 2 protein bars and one meal per day. Meal to include lean meat (beef, fish, pork, turkey, chicken), or french yogurt, or egg whites, or beans with a salad with olive oil and fruits (berries, pears, apples, kiwi). Avoid salt, breads, potatoes, rice, pasta, desserts. 3. Each shake would be drunk slowly, like coffee in a period of 2 hours. 4. Cut each bar in 4 pieces and eat each piece in 30min ?to make each bar last 2 hours. 5. I emphasized the importance of measuring accurately the food portion and measure it when serving the food in plate 6. The meal portions include 10 full-size forks of meat and 10 full-size forks of salad. You always eat the meat portion but you can replace up to 5 forks for salad/vegetables with rice, potatoes or pasta, or a fruit ?if you like. The less you do it the better weight loss will be. 7. One full-size fork is what it can be scooped on the fork without falling aside and not what can be bit with the fork. Use regular forks like those you find in a typical restaurant. 8.? Please use your body composition scale and send me weight measurements as soon as possible and then once a week. Always include your diet and exercise plan. 9. Start your stepper daily, tracking calories with a goal of 300 calories per day, daily. Goal is to burn 2000 calories per week on exercise, which means either 300 calories daily. 10.?It is important of avoiding and for at least 18 months postoperatively and has been discussed at the infosession. 11. Goal is to lose at least 1.5-2lbs per week 12. Goal to lose 10% of your weight before surgery, which is about 25lbs. Ultimate weight goal: 250lbs before surgery 13. Please follow the diet plan exactly without any change. If you don't like something about the plan or you feel hungry you need to communicate with me so I can help you revise the plan. You should not change the plan yourself 14. To be scheduled for EGD to assess the stomach's anatomy. The possibility of biopsies was discussed. Patient needs to avoid use of NSAIDs and aspirin for 1 week prior to EGD. You must be on liquids only the day before your endoscopy. Risks of perforation and bleeding was discussed with the patient. This will be an outpatient procedure with IV sedation. 15. As of tomorrow, please check your blood pressure daily in the morning. If your blood pressure is: Below 120/70: do not take the Amlodipine, or Losartan or Furosemide 121/71 to 130/80: take ONLY the Amlodipine 131/81 to 140/90: take the Amlodipine AND Losartan Over 141/91: take the Amlodipine, Losartan AND Furosemide Orders: Orders Insulin Today E66.01 - Morbid (severe) obesity due to excess calories, I10 - Essential (primary) hypertension, K21.9 - Gastro-esophageal reflux disease without esophagitis Hemoglobin A1c Today E66.01 - Morbid (severe) obesity due to excess calories, I10 - Essential (primary) hypertension, K21.9 - Gastro-esophageal reflux disease without esophagitis H Pylori Breath Test Today E66.01 - Morbid (severe) obesity due to excess calories, I10 - Essential (primary) hypertension, K21.9 - Gastro-esophageal reflux disease without esophagitis Lipid Panel Today E66.01 - Morbid (severe) obesity due to excess calories, I10 - Essential (primary) hypertension, K21.9 - Gastro-esophageal reflux disease without esophagitis Comprehensive Met. Panel Today E66.01 - Morbid (severe) obesity due to excess calories, I10 - Essential (primary) hypertension, K21.9 - Gastro-esophageal reflux disease without esophagitis Zinc Today E66.01 - Morbid (severe) obesity due to excess calories, I10 - Essential (primary) hypertension, K21.9 - Gastro-esophageal reflux disease without esophagitis TSH reflex Free T4 Today E66.01 - Morbid (severe) obesity due to excess calories, I10 - Essential (primary) hypertension, K21.9 - Gastro-esophageal reflux disease without esophagitis Ferritin Today E66.01 - Morbid (severe) obesity due to excess calories, I10 - Essential (primary) hypertension, K21.9 - Gastro-esophageal reflux disease without esophagitis US abdomen comp w elastography Today E66.01 - Morbid (severe) obesity due to excess calories, I10 - Essential (primary) hypertension, K21.9 - Gastro-esophageal reflux disease without esophagitis XR chest 2V Today E66.01 - Morbid (severe) obesity due to excess calories, I10 - Essential (primary) hypertension, K21.9 - Gastro-esophageal reflux disease without esophagitis ECG 12 lead EKG Today E66.01 - Morbid (severe) obesity due to excess calories, I10 - Essential (primary) hypertension, K21.9 - Gastro-esophageal reflux disease without esophagitis Complete Blood Count Auto Diff Today E66.01 - Morbid (severe) obesity due to excess calories, I10 - Essential (primary) hypertension, K21.9 - Gastro-esophageal reflux disease without esophagitis IRON PROFILE Today E66.01 - Morbid (severe) obesity due to excess calories, I10 - Essential (primary) hypertension, K21.9 - Gastro-esophageal reflux disease without esophagitis Vitamin B12 and Folate Today E66.01 - Morbid (severe) obesity due to excess calories, I10 - Essential (primary) hypertension, K21.9 - Gastro-esophageal reflux disease without esophagitis C Reactive Protein Today E66.01 - Morbid (severe) obesity due to excess calories, I10 - Essential (primary) hypertension, K21.9 - Gastro-esophageal reflux disease without esophagitis Vitamin B1 Today E66.01 - Morbid (severe) obesity due to excess calories, I10 - Essential (primary) hypertension, K21.9 - Gastro-esophageal reflux disease without esophagitis Vitamin A Today E66.01 - Morbid (severe) obesity due to excess calories, I10 - Essential (primary) hypertension, K21.9 - Gastro-esophageal reflux disease without esophagitis Vitamin D 25-OH Total Today E66.01 - Morbid (severe) obesity due to excess calories, I10 - Essential (primary) hypertension, K21.9 - Gastro-esophageal reflux disease without esophagitis FL upper GI w air Today E66.01 - Morbid (severe) obesity due to excess calories, I10 - Essential (primary) hypertension, K21.9 - Gastro-esophageal reflux disease without esophagitis Referrals Behavioral Health Referral E66.01 - Morbid (severe) obesity due to excess calories, I10 - Essential (primary) hypertension, K21.9 - Gastro-esophageal reflux disease without esophagitis Nutrition/Dietitian Referral E66.01 - Morbid (severe) obesity due to excess calories, I10 - Essential (primary) hypertension, K21.9 - Gastro-esophageal reflux disease without esophagitis
[2024-10-21 10:08] VITALS: BMI 53.8
== END 2024-10-21 10:39 | disposition home or self-care (01) ==
LOC: HO.HBS 08:22
PROVIDERS: PCP Internal Medicine; Visit Provider Surgery
DX: E66.01 Morbid (severe) obesity due to excess calories (principal)
CPT/HCPCS: 99204

== ENCOUNTER 2024-10-23 09:33 | Outpatient (REF) | payer OTHER, SELFPAY ==
--- NOTE | ~2024-10-23 | XR_ITS ---
EXAMINATION: XR CHEST CLINICAL INFORMATION: E66.01 - Morbid (severe) obesity due to excess calories COMPARISON: September 28, 2024. TECHNIQUE: 2 views of the chest were obtained. FINDINGS: No consolidation, pleural effusion or pneumothorax. No hyperinflation. Cardiomediastinal silhouette size is normal. Mild multilevel thoracolumbar spondylosis. Patient's large habitus/obesity. XR/XR chest 2V IMPRESSION: No acute airspace disease. Stable chest. Electronically signed by: Robb Chew MD 10/23/2024 10:24 AM EDT
--- NOTE | 2024-10-23 09:38 | ECG_ITS ---
Test Reason : MOR OBS Blood Pressure : */* mmHG Vent. Rate : 69 BPM Atrial Rate : 69 BPM P-R Int : 174 ms QRS Dur : 92 ms QT Int : 408 ms P-R-T Axes : 46 37 9 degrees QTcB Int : 437 ms Normal sinus rhythm Normal ECG When compared with ECG of 28-Sep-2024 11:52, Nonspecific T wave abnormality no longer evident in Anterior leads Referred By: Jalen Perez Electronically Signed By: SHIRLENE MULLINS
[2024-10-23 10:03] LABS: MANUAL DIFF FLAG NO
[2024-10-23 10:39] LABS: Basophils Absolute Auto 0.1 X10*3/uL (0.0-0.2); Basophils Percent Auto 0.5 % (0-2); Eosinophils Absolute Auto 0.3 X10*3/uL (0.0-0.4); Eosinophils Percent Auto 3.1 % (0-4); Hematocrit 39.7 % (37.0-47.0); Hemoglobin 13.3 g/dl (12.0-16.0); Imm Gran Abs Auto 0.03 X10*3/uL (0.00-0.03); Imm Gran Pct Auto 0.3 % (0.0-0.4); Lymphocytes Absolute Auto 2.2 X10*3/uL (1.2-4.9); Lymphocytes Percent Auto 21.6 % (20-40); Mean Corpuscular HGB Conc 33.5 g/dl (31.0-35.0); Mean Corpuscular Hemoglobin 27.8 pg (27.0-33.0); Mean Corpuscular Volume 82.9 fL (80.0-98.0); Mean Platelet Volume 9.3 fL (9.4-12.3); Monocytes Absolute Auto 0.5 X10*3/uL (0.1-1.2); Monocytes Percent Auto 4.7 % (2-11); Neutrophils Absolute Auto 6.9 x10*3/uL (2.0-8.3); Neutrophils Percent Auto 69.8 % (45-73); Platelet Count 355 X10*3/uL (160-400); Red Blood Count 4.79 X10*6/uL (4.20-5.50); Red Cell Distribution Width 13.7 % (11.0-16.0); White Blood Count 9.9 X10*3/uL (4.8-10.8)
[2024-10-23 10:46] LABS: Estimated Average Glucose 134 mg/dL; Hemoglobin A1c % 6.3 % (<6.0); Total Hemoglobin (HGBA1C) 3531.3445 umol/L
[2024-10-23 11:10] LABS: Alanine Aminotransferase 18 U/L (0-31); Alkaline Phosphatase 107 U/L (39-117); Anion Gap 14 (12-20); Aspartate Amino Transferase 24 U/L (5-31); Bilirubin Total 0.9 mg/dL (0.0-1.0); Blood Urea Nitrogen 15 mg/dL (9-16); C Reactive Protein 5.61 mg/dL (< or = 0.50); Calcium 9.4 mg/dL (8.4-10.2); Carbon Dioxide 27 mmol/L (22-29); Chloride 102 mmol/L (96-108); Cholesterol 162 mg/dL (<200); Estimated Glomerular Filt Rate > 60; Glucose Random 114 mg/dL (60-115); HDL Cholesterol 48 mg/dL (>40); Iron 126 mcg/dL (30-160); LDL Cholesterol Calculated 101 mg/dL (<100); Percent Iron Saturation 42 % (15-50); Potassium 3.9 mmol/L (3.3-5.1); Sodium 139 mmol/L (135-145); Total Iron Binding Capacity 297 mcg/dL (228-428); Total Protein 7.6 g/dL (6.5-8.0); Triglycerides 69 mg/dL (<150); Unsaturated Iron Binding 171 ug/dL
[2024-10-23 11:35] LABS: Folate 12.6 ng/mL (> or = 4.0); Vitamin B12 274 pg/mL (200-900)
[2024-10-23 11:38] LABS: Ferritin 92 ng/mL (10-250); Insulin 10 uU/mL (2-29); TSH reflex Free T4 3.06 uIU/mL (0.32-4.0); Vitamin D 25-OH Total 31.9 ng/mL (>30)
[2024-10-26 23:39] LABS: Zinc 72 mcg/dL (60-130)
[2024-10-27 18:39] LABS: Vitamin A 47 mcg/dL (38-98)
[2024-10-29 06:09] LABS: Vitamin B1 11 nmol/L (8-30)
== END 2024-10-23 09:34 | disposition home or self-care (01) ==
LOC: HO.XRAY 09:33
PROVIDERS: PCP Internal Medicine; Visit Provider Surgery
DX: E66.01 Morbid (severe) obesity due to excess calories (principal); I10 Essential (primary) hypertension; K21.9 Gastro-esophageal reflux disease without esophagitis
CPT/HCPCS: 36415; 71046; 80053; 80061; 82306; 82607; 82728; 82746; 83036; 83525; 83540; 84425; 84443; 84590; 84630; 85025; 86140; 93005

== ENCOUNTER → 2024-10-23 09:38 | Outpatient (BNV) | payer OTHER, SELFPAY | PROVIDERS: PCP Internal Medicine; Visit Provider Internal Medicine | DX: E66.01 Morbid (severe) obesity due to excess calories (principal) | CPT/HCPCS: 93010 ==

== ENCOUNTER → 2024-10-23 10:01 | Outpatient (BNV) | payer OTHER, SELFPAY | PROVIDERS: PCP Internal Medicine; Visit Provider Radiology Diagnostic Radiology | DX: M47.895 Other spondylosis, thoracolumbar region (principal) | CPT/HCPCS: 71046 ==

== ENCOUNTER 2024-11-11 11:21 | Outpatient (AMB) | payer OTHER, SELFPAY ==
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
== END 2024-11-11 12:05 | disposition home or self-care (01) ==
LOC: HO.HBST 11:21
PROVIDERS: PCP Internal Medicine; Visit Provider Counselor Mental Health
DX: F43.9 Reaction to severe stress, unspecified (principal); Z71.89 Other specified counseling
CPT/HCPCS: 90791

== ENCOUNTER 2024-12-01 10:17 | Outpatient (AMB) | payer OTHER, SELFPAY ==
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
== END 2024-12-01 11:01 | disposition home or self-care (01) ==
LOC: HO.HBST 10:17
PROVIDERS: PCP Internal Medicine; Visit Provider Counselor Mental Health
DX: F43.9 Reaction to severe stress, unspecified (principal); Z71.89 Other specified counseling
CPT/HCPCS: 90837

== ENCOUNTER 2024-12-11 11:13 | Outpatient (REF) | payer OTHER, SELFPAY ==
--- NOTE | ~2024-12-11 | US_ITS ---
EXAMINATION: US ABDOMEN COMPLETE WITH LIVER ELASTOGRAPHY HISTORY: E66.01 - Morbid (severe) obesity due to excess calories TECHNIQUE: Real-time grayscale ultrasound imaging of the abdomen was performed and images were reviewed. COMPARISON: Comparison is made with the prior examination dated 02/20/2024. FINDINGS: Liver: The right lobe of the liver measures 16.3 cm in size. The left lobe of the liver measures 12.1 cm in size. The liver demonstrates increased echotexture, consistent with steatosis. No focal mass or intrahepatic biliary ductal dilatation is identified. There is normal hepatopedal flow in the portal vein. Ultrasound elastography of the liver was performed with 10 separate measurements of the liver parenchyma with the patient in the supine position. Measurements were obtained approximately 2 cm below Tara's capsule and perpendicular to the capsule. The median shear wave velocity is 1.77 m/s. The interquartile range/median (IQR/median) is 0.09. Gallbladder and biliary tree: The gallbladder is unremarkable, without evidence of calculi, wall thickening, or pericholecystic fluid. There is no sonographic No sign. The common bile duct is normal in caliber measuring 3 mm. Kidneys: The right kidney measures 11.3 cm in length and demonstrates a 1.6 cm cyst in the interpolar region. The left kidney measures 11.4 cm in length. The kidneys are otherwise unremarkable, without evidence of solid masses, hydronephrosis, or calculi. Pancreas: The pancreatic head, neck, and body are unremarkable. The pancreatic tail is obscured by bowel gas. Spleen: The spleen is top normal in size, measuring 12.4 cm in length. No focal splenic lesion is identified. Abdominal aorta and inferior vena cava: The visualized portions of the abdominal aorta and inferior vena cava are normal in caliber. There is no free fluid in the abdomen. US/US abdomen comp w elastography IMPRESSION: Hepatomegaly and hepatic steatosis. Borderline splenomegaly. The median shear wave velocity in the liver is 1.77 m/s, corresponding to a median liver stiffness of 9.49 kPa. The IQR/median value is 0.09. This is indicative of a quality data set. Findings are indicative of a high elastography value suggestive of compensated advanced chronic liver disease. REFERENCE: Society of Radiologists in Ultrasound Liver Stiffness Thresholds (2020): LIVER STIFFNESS THRESHOLDS: *Shear wave velocity less than 1.3 m/s (Liver Stiffness equal or less than 5 kPa): High probability of being normal. *Shear wave velocity less than 1.7 m/s (Liver Stiffness less than 9 kPa): In the absence of other known clinical signs, rules out compensated advanced chronic liver disease. *Shear wave velocity between 1.7-2.1 m/s (Liver Stiffness 9-13 kPa): Suggestive of compensated advanced chronic liver disease but need further test for confirmation. *Shear wave velocity between 2.1-2.4 m/s (Liver Stiffness 13-17 kPa): Rules in compensated advanced chronic liver disease. *Shear wave velocity greater than 2.4 m/s (Liver Stiffness over 17 kPa): Suggestive of clinically significant portal hypertension. QUALITY OF DATA SET: *IQR/Median value equal or less than 0.15 implies a quality data set. *IQR/Median value over 0.15 implies a poor quality data set. SIGNIFICANT CHANGE FROM PRIOR EXAM: Significant change if liver stiffness measurement is 10% or greater from prior exam. OTHER CONSIDERATIONS: The stage of liver fibrosis may be overestimated in the setting of acute hepatitis, liver inflammation, elevated liver function tests, hepatic vascular congestion, obstructive cholestasis, non-fasting state, and infiltrative diseases such as amyloidosis and lymphoma. In some patients with NAFLD, the liver stiffness thresholds for compensated advanced chronic liver disease may be lower. In causes other than viral hepatitis and NAFLD, liver stiffness thresholds are not well established. Electronically signed by: Dakotah Reyes MD 12/11/2024 12:52 PM EDT
== END 2024-12-11 11:14 | disposition home or self-care (01) ==
LOC: HO.US 11:13
PROVIDERS: PCP Internal Medicine; Visit Provider Surgery
DX: E66.01 Morbid (severe) obesity due to excess calories (principal); K21.9 Gastro-esophageal reflux disease without esophagitis; I10 Essential (primary) hypertension
CPT/HCPCS: 76700; 76981

== ENCOUNTER → 2024-12-11 11:14 | Outpatient (BNV) | payer OTHER, SELFPAY | PROVIDERS: PCP Internal Medicine; Visit Provider Radiology Diagnostic Radiology | DX: E66.01 Morbid (severe) obesity due to excess calories (principal) | CPT/HCPCS: 76700 ==

== ENCOUNTER 2024-12-18 06:38 | Day surgery (SDC) | payer OTHER, SELFPAY ==
--- NOTE | 2024-10-27 09:06 | HO.ANESPROP2 ---
HPI - Anesthesia Eval Consult details Narrative: 38yo F for Upper Endoscopy BMI 53.8 Anesthesia Pre-Procedure Meds Is the patient on any of the following meds?: GLP1/DPP4 PMFSH Active Problems Active Problems: All Active Problems UTI (urinary tract infection) (Acute) Allergic reaction (Acute) Hepatic steatosis (Acute) Frequency of micturition (Acute) RUQ abdominal pain (Acute) Breast cancer screening by mammogram (Acute) Bilateral thumb pain (Acute) Chronic migraine w/o aura w/o status migrainosus, not intractable (Acute) Obesity, morbid, BMI 50 or higher (Acute) Lower thoracic back pain (Acute) Dysphagia (Acute) Asthma (Acute) Left ovarian cyst (Acute) Tinnitus (Acute) Family history of colonic polyps (Acute) Chest pain (Acute) Rectal bleed (Acute) Urinary retention (Acute) Annual physical exam (Acute) Back pain (Acute) Paresthesias (Acute) Idiopathic intracranial hypertension (Acute) COVID-19 virus infection (Acute) Bipolar 1 disorder (Acute) Annual physical exam (Acute) Constipation (Acute) Obstructive sleep apnea (Acute) Vitamin D deficiency (Acute) Vitamin B 12 deficiency (Acute) Microcytosis (Acute) Hypertension (Acute) GERD (gastroesophageal reflux disease) (Acute) Irregular menses (Acute) Past Medical History Medical History (Updated 09/29/24 @ 00:00 by Isidra Alcaraz) UTI (urinary tract infection) Recurrent finger dislocation Bilateral hand pain Migraine Morbid obesity Breakthrough bleeding associated with intrauterine device (IUD) Asthma Asthma Left ovarian cyst Morbid obesity due to excess calories Exposure to hepatitis C Insomnia GERD (gastroesophageal reflux disease) Peripheral vascular disease Iron deficiency anemia Irregular menses Well woman exam with routine gynecological exam Obstructive sleep apnea Fibromyalgia Tension headache Bipolar 1 disorder Hypertension Family History Family History Father Hypertension Lymphoma Myocardial infarct Diabetes mellitus Mother Epilepsy Asthma Sleep apnea Bipolar disorder Colon polyps Maternal Grandmother Diabetes mellitus Paternal Grandfather Pancreatic cancer Myocardial infarct Paternal Aunt Breast CA Sister No problems noted. Sister No problems noted. Brother Myocardial infarct Brother No problems noted. Daughter Seizure Anxiety Depression Asthma Migraine Daughter ADHD Daughter No problems noted. Paternal Uncle Schizophrenia Other Mental health disorder Surgical History Surgical History Hx of tubal ligation Social History Social History Housing: Apartment Alcohol intake: never Patient Tobacco Use Status: Former Tobacco user Tobacco use type: Cigarette Years Smoked: 2010 stopped e-Cigarette/Vaping Use: Never Used Second Hand Smoke Exposure: No service: No Current occupational status: unemployed Current occupation: rt handed Sexual orientation: Straight/Heterosexual Gender identity: Female Cognitive needs: No Hearing needs: No Vision needs: No Meds Allergies Allergy/AdvReac Type Severity Reaction Status Date / Time Iodinated Contrast Media Allergy Severe Anaphylaxis Verified 10/21/24 09:56 (CONTRAST, IV) bee pollen (bee stings) Allergy Unknown edema Verified 10/21/24 09:56 Benadryl Allergy Unknown edema, Verified 10/21/24 09:56 swelling citalopram (Celexa) Allergy Unknown edema Verified 10/21/24 09:56 hydrochlorothiazide Allergy Unknown unknown Verified 10/21/24 09:56 latex Allergy Unknown Swelling Verified 10/21/24 09:56 prednisolone Allergy Unknown unknown Verified 10/21/24 09:56 seafood Allergy Unknown Hives Verified 10/21/24 09:56 shellfish derived Allergy Unknown Swelling Verified 10/21/24 09:56 tramadol Allergy Unknown hives Verified 10/21/24 09:56 cefpodoxime AdvReac Intermediate bradycardia, Verified 10/21/24 09:56 no energy sertraline AdvReac Intermediate confused, Verified 10/21/24 09:56 yaya Diamox Sequels AdvReac Unknown pain/tingli Verified 10/21/24 09:56 ng lisinopril AdvReac Unknown dizziness Verified 10/21/24 09:56 Home Medications ?Medication ?Instructions ?Recorded ?Confirmed ?Last Taken ?Type aspirin 81 mg tablet,delayed 81 mg PO DAILY 03/08/20 10/21/24 Unknown History release (Adult Aspirin Regimen) levonorgestrel 21 mcg/24 hr (up to intrauterine 04/08/20 10/21/24 Unknown History 8 years) 52 mg intrauterine device (Mirena) levocetirizine 5 mg tablet 5 mg PO DAILY 09/28/24 10/21/24 Unknown History losartan 50 mg tablet 50 mg PO DAILY 09/28/24 10/21/24 Unknown History Assessment and Plan Assessment Anesthesia Assessment: Chart Reviewed
--- NOTE | 2024-12-17 12:39 | HO.ANESPROP2 ---
Documented by User: Stella Alcaraz NP 12/17/24 12:42 HPI - Anesthesia Eval Consult details Narrative: 38yo F for Upper Endoscopy BMI 53.8 Anesthesia Pre-Procedure Meds Is the patient on any of the following meds?: GLP1/DPP4 PMFSH Active Problems Active Problems: All Active Problems Morbid obesity with BMI of 50.0-59.9, adult (Acute) Trauma and stressor-related disorder (Acute) UTI (urinary tract infection) (Acute) Allergic reaction (Acute) Hepatic steatosis (Acute) Frequency of micturition (Acute) RUQ abdominal pain (Acute) Breast cancer screening by mammogram (Acute) Bilateral thumb pain (Acute) Chronic migraine w/o aura w/o status migrainosus, not intractable (Acute) Obesity, morbid, BMI 50 or higher (Acute) Lower thoracic back pain (Acute) Dysphagia (Acute) Asthma (Acute) Left ovarian cyst (Acute) Tinnitus (Acute) Family history of colonic polyps (Acute) Chest pain (Acute) Rectal bleed (Acute) Urinary retention (Acute) Annual physical exam (Acute) Back pain (Acute) Paresthesias (Acute) Idiopathic intracranial hypertension (Acute) COVID-19 virus infection (Acute) Bipolar 1 disorder (Acute) Annual physical exam (Acute) Constipation (Acute) Obstructive sleep apnea (Acute) Vitamin D deficiency (Acute) Vitamin B 12 deficiency (Acute) Microcytosis (Acute) Hypertension (Acute) GERD (gastroesophageal reflux disease) (Acute) Irregular menses (Acute) Past Medical History Medical History Morbid obesity with BMI of 50.0-59.9, adult UTI (urinary tract infection) Recurrent finger dislocation Bilateral hand pain Migraine Morbid obesity Breakthrough bleeding associated with intrauterine device (IUD) Asthma Asthma Left ovarian cyst Morbid obesity due to excess calories Exposure to hepatitis C Insomnia GERD (gastroesophageal reflux disease) Peripheral vascular disease Iron deficiency anemia Irregular menses Well woman exam with routine gynecological exam Obstructive sleep apnea Fibromyalgia Tension headache Bipolar 1 disorder Hypertension Family History Family History Father Hypertension Lymphoma Myocardial infarct Diabetes mellitus Mother Epilepsy Asthma Sleep apnea Bipolar disorder Colon polyps Maternal Grandmother Diabetes mellitus Paternal Grandfather Pancreatic cancer Myocardial infarct Paternal Aunt Breast CA Sister No problems noted. Sister No problems noted. Brother Myocardial infarct Brother No problems noted. Daughter Seizure Anxiety Depression Asthma Migraine Daughter ADHD Daughter No problems noted. Paternal Uncle Schizophrenia Other Mental health disorder Surgical History Surgical History Hx of tubal ligation Social History Social History Housing: Apartment Alcohol intake: never Patient Tobacco Use Status: Former Tobacco user Tobacco use type: Cigarette Years Smoked: 2010 stopped e-Cigarette/Vaping Use: Never Used Second Hand Smoke Exposure: No Use of substances other than those prescribed or required for medical reasons: No Are you DNR?: No Advance Directives: No Advance Directives Information Provided: Yes service: No Current occupational status: unemployed Current occupation: rt handed Sexual orientation: Straight/Heterosexual Gender identity: Female Cognitive needs: No Hearing needs: No Vision needs: No Meds Allergies Allergy/AdvReac Type Severity Reaction Status Date / Time Iodinated Contrast Media Allergy Severe Anaphylaxis Verified 12/01/24 11:45 (CONTRAST, IV) bee pollen (bee stings) Allergy Unknown edema Verified 12/01/24 11:45 Benadryl Allergy Unknown edema, Verified 12/01/24 11:45 swelling citalopram (Celexa) Allergy Unknown edema Verified 12/01/24 11:45 hydrochlorothiazide Allergy Unknown unknown Verified 12/01/24 11:45 latex Allergy Unknown Swelling Verified 12/01/24 11:45 prednisolone Allergy Unknown unknown Verified 12/01/24 11:45 seafood Allergy Unknown Hives Verified 12/01/24 11:45 shellfish derived Allergy Unknown Swelling Verified 12/01/24 11:45 tramadol Allergy Unknown hives Verified 12/01/24 11:45 cefpodoxime AdvReac Intermediate bradycardia, Verified 12/01/24 11:45 no energy sertraline AdvReac Intermediate confused, Verified 12/01/24 11:45 yaya Diamox Sequels AdvReac Unknown pain/tingli Verified 12/01/24 11:45 ng lisinopril AdvReac Unknown dizziness Verified 12/01/24 11:45 Home Medications ?Medication ?Instructions ?Recorded ?Confirmed ?Last Taken ?Type aspirin 81 mg tablet,delayed 81 mg PO DAILY 03/08/20 10/21/24 Unknown History release (Adult Aspirin Regimen) levonorgestrel (Mirena) intrauterine 04/08/20 10/21/24 Unknown History levocetirizine 5 mg tablet 5 mg PO DAILY 09/28/24 10/21/24 Unknown History losartan 50 mg tablet 50 mg PO DAILY 09/28/24 10/21/24 Unknown History Exam Pertinent Lab Results Pertinent Lab Results: Laboratory Tests 10/23/24 10:00 WBC 9.9 Hgb 13.3 Hct 39.7 Plt Count 355 Sodium 139 Potassium 3.9 Chloride 102 Carbon Dioxide 27 BUN 15 Creatinine 0.66 Narrative Narrative: EKG 09/2024 Vent. Rate : 69 BPM Atrial Rate : 69 BPM P-R Int : 174 ms QRS Dur : 92 ms QT Int : 408 ms P-R-T Axes : 46 37 9 degrees QTcB Int : 437 ms Normal sinus rhythm Normal ECG When compared with ECG of 28-Sep-2024 11:52, Nonspecific T wave abnormality no longer evident in Anterior leads Assessment and Plan Assessment Anesthesia Assessment: Chart Reviewed Documented by User: Otis Avalos MD 12/18/24 08:27 [facility] Past Medical History Medical History Morbid obesity with BMI of 50.0-59.9, adult UTI (urinary tract infection) Recurrent finger dislocation Bilateral hand pain Migraine Morbid obesity Breakthrough bleeding associated with intrauterine device (IUD) Asthma Asthma Left ovarian cyst Morbid obesity due to excess calories Exposure to hepatitis C Insomnia GERD (gastroesophageal reflux disease) Peripheral vascular disease Iron deficiency anemia Irregular menses Well woman exam with routine gynecological exam Obstructive sleep apnea Fibromyalgia Tension headache Bipolar 1 disorder Hypertension Functional capacity: independent ambulation Family History Family History Father Hypertension Lymphoma Myocardial infarct Diabetes mellitus Mother Epilepsy Asthma Sleep apnea Bipolar disorder Colon polyps Maternal Grandmother Diabetes mellitus Paternal Grandfather Pancreatic cancer Myocardial infarct Paternal Aunt Breast CA Sister No problems noted. Sister No problems noted. Brother Myocardial infarct Brother No problems noted. Daughter Seizure Anxiety Depression Asthma Migraine Daughter ADHD Daughter No problems noted. Paternal Uncle Schizophrenia Other Mental health disorder Family history of problems with anesthesia: No Surgical History Surgical History Hx of tubal ligation History of Problems with Anesthesia: No Social History Social History Housing: Apartment Alcohol intake: never Patient Tobacco Use Status: Former Tobacco user Tobacco use type: Cigarette Years Smoked: 2010 stopped e-Cigarette/Vaping Use: Never Used Second Hand Smoke Exposure: No Use of substances other than those prescribed or required for medical reasons: No Are you DNR?: No Advance Directives: No Advance Directives Information Provided: Yes service: No Current occupational status: unemployed Current occupation: rt handed Sexual orientation: Straight/Heterosexual Gender identity: Female Cognitive needs: No Hearing needs: No Vision needs: No Meds Allergies Allergy/AdvReac Type Severity Reaction Status Date / Time Iodinated Contrast Media Allergy Severe Anaphylaxis Verified 12/01/24 11:45 (CONTRAST, IV) bee pollen (bee stings) Allergy Unknown edema Verified 12/01/24 11:45 Benadryl Allergy Unknown edema, Verified 12/01/24 11:45 swelling citalopram (Celexa) Allergy Unknown edema Verified 12/01/24 11:45 hydrochlorothiazide Allergy Unknown unknown Verified 12/01/24 11:45 latex Allergy Unknown Swelling Verified 12/01/24 11:45 prednisolone Allergy Unknown unknown Verified 12/01/24 11:45 seafood Allergy Unknown Hives Verified 12/01/24 11:45 shellfish derived Allergy Unknown Swelling Verified 12/01/24 11:45 tramadol Allergy Unknown hives Verified 12/01/24 11:45 cefpodoxime AdvReac Intermediate bradycardia, Verified 12/01/24 11:45 no energy sertraline AdvReac Intermediate confused, Verified 12/01/24 11:45 yaya Diamox Sequels AdvReac Unknown pain/tingli Verified 12/01/24 11:45 ng lisinopril AdvReac Unknown dizziness Verified 12/01/24 11:45 Home Medications ?Medication ?Instructions ?Recorded ?Confirmed ?Last Taken ?Type aspirin 81 mg tablet,delayed 81 mg PO DAILY 03/08/20 10/21/24 Unknown History release (Adult Aspirin Regimen) levonorgestrel (Mirena) intrauterine 04/08/20 10/21/24 Unknown History levocetirizine 5 mg tablet 5 mg PO DAILY 09/28/24 10/21/24 Unknown History losartan 50 mg tablet 50 mg PO DAILY 09/28/24 10/21/24 Unknown History Exam Exam Date and Time: 12/18/24 Airway Mallampati Class: III TM Dist: >3cm Loose/Missing/Broken Teeth: No Heart: rrr Lungs: cta Other: normal Assessment and Plan Assessment Anesthesia Assessment: Anesthesia Plan Discussed Final Anesthetic Review Family History of Problems with Anesthesia: No History of Problems with Anesthesia: No NPO: Yes ASA Class: III and IV Final Preanesthetic Review: No Changes in Pt Med Stat, Meds/Allgs Chart Reviewed, Consent Obtained/Reviewed and Anes Risks/Benef Reviewed Patient Risk: Low Procedure Risk: Low Anesthetic Plan Anesthetic Plan: MAC: and Agree w/ Assess. and Plan Disposition: Standard PACU
[2024-12-18 07:10] VITALS: BP 174/107; PULSE 78; RESP 16; TEMP 36.6; O2SAT 98
[2024-12-18] MEDS: Lactated Ringers 1,000 ML 80 ML IVCONT (07:26)
--- NOTE | 2024-12-18 08:17 | MHC.SHP ---
Pre-Procedural Eval Section A - 24 Hr Update-Section A only Date of Service: 12/18/24 The patient is an INPATIENT: No The patient has been examined within 24 hours of the surgical procedure. The History & Physical has been completed within 30 days and I have reviewed it.: Yes Section B - Complete if H&P > 30 days Chief Complaint: Morbid (severe) obesity due to excess calories Details of Present Illness: GERD Relevant Family History (Specify if Yes): No Relevant Social History: None Present Medications: None Medical History: No relevant PMH History of Previous Operations: No relevant previous surgery Allergies: Allergies Allergy/AdvReac Type Severity Reaction Status Date / Time Iodinated Contrast Media Allergy Severe Anaphylaxis Verified 12/01/24 11:45 (CONTRAST, IV) bee pollen (bee stings) Allergy Unknown edema Verified 12/01/24 11:45 Benadryl Allergy Unknown edema, Verified 12/01/24 11:45 swelling citalopram (Celexa) Allergy Unknown edema Verified 12/01/24 11:45 hydrochlorothiazide Allergy Unknown unknown Verified 12/01/24 11:45 latex Allergy Unknown Swelling Verified 12/01/24 11:45 prednisolone Allergy Unknown unknown Verified 12/01/24 11:45 seafood Allergy Unknown Hives Verified 12/01/24 11:45 shellfish derived Allergy Unknown Swelling Verified 12/01/24 11:45 tramadol Allergy Unknown hives Verified 12/01/24 11:45 cefpodoxime AdvReac Intermediate bradycardia, Verified 12/01/24 11:45 no energy sertraline AdvReac Intermediate confused, Verified 12/01/24 11:45 yaya Diamox Sequels AdvReac Unknown pain/tingli Verified 12/01/24 11:45 ng lisinopril AdvReac Unknown dizziness Verified 12/01/24 11:45 Review of Systems Sugical H&P ROS: Negative: Constitution, Cardiovascular, Respiratory, Neurological, Psychiatric, Hem-Onc, Allergic/Immunologic, Gastrointestinal, Genitourinary, Musculoskeletal, Integumentary, Endocrine and Eyes/Ears/Nose/Throat Exam Surgical H&P Exam: Normal: HEENT, Normal: Heart, Normal: Lungs, Normal: Extremities, Normal: Abdomen, Normal: Skin and Normal: Neurological Plan Diagnosis/Plan: Unchanged (EGD to assess etiology of GERD. Risks of bleeding and perforation were discussed with the patient and she is in agreement with the plan.) I have reviewed the history and physical and performed a pertinent physical examination on my patient. No changes have occurred unless specified. Time Spent With Patient Time: Total time managing care of this patient today ____ minutes.
--- NOTE | 2024-12-18 08:18 | P.BOP_ITS ---
Brief Operative Note Date of Service: 12/18/24 Pre-op diagnosis: GERD Post-op diagnosis: same Procedure: PROCEDURE DATE: 12/18/2024 PREOPERATIVE DIAGNOSIS: GERD POSTOPERATIVE DIAGNOSIS: ?Same as above. 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 Ph.D. Director Recreation Center: None ? Anesthesia: IV sedation Estimated blood loss: ?Minimal FINDINGS AND PROCEDURE: ? OPERATIVE INDICATIONS: ?The patient is a 38 year old female known to me who is interested in bariatric surgery. The patient has GERD. Based on this information I recommended an upper endoscopy to evaluate the patient's symptoms. Risks and complications of the surgery were discussed with the patient in advance particularly the possibility of perforation or bleeding that may require surgical intervention. The patient understood the risks and was in agreement with the plan. ? PROCEDURE: After informed consent was obtained by the patient, the patient was ?transferred to the Operating Room and was placed in the supine position.? After successful induction of IV sedation, a mouth block was inserted and the patient was placed in the left lateral decubitus position. An upper endoscopy was performed next, the oropharynx and esophagus appeared within the normal limits. There was a small to moderate fixed hiatal hernia. The z-line was smooth. Two biopsies were obtained from the distal esophagus 2-3 cm proximal to the GE junction and two additional biopsies from the GE junction. The stomach was entered and it appeared to be of normal size. There was no gastr itis. There was no stricture or ulcer. A biopsy was obtained from the gastric fundus and the antrum. No significant bleeding was noted from any of the biopsy sites. Retroflexion of the scope confirmed the presence of a diaphragmatic hernia. The scope was then advanced into the duodenum which appeared to be normal as well. At that point the duodenum ?and the stomach were decompressed and the scope was withdrawn from the patient's mouth. The patient extubated and was transferred in stable condition to the Recovery Room for further care. I was present and performed all steps of the procedure. There were no residents to assist with this case. Ean Perez M.D., Ph.D. Surgeon: Jalen Perez MD Anesthesia: MAC Was an Director Recreation Center used for this Procedure?: No Estimated blood loss (mL): 0 IV fluids (mL): 400 Urine output (mL): 0 (No Wen to record output) Pathology: other (1) antrum x1, 2) fundus x1, 3) GE junction x3, 4) distal esophagus x3) Condition: stable Disposition: PACU
[2024-12-18 08:55] VITALS: BP 130/87; PULSE 76; RESP 20; TEMP 36.1; O2SAT 99
[2024-12-18 09:00] VITALS: BP 155/95; PULSE 80; RESP 18; O2SAT 99
[2024-12-18 09:15] VITALS: BP 145/98; PULSE 80; RESP 18; TEMP 36.1; O2SAT 99
[2024-12-18 09:30] VITALS: BP 155/95; PULSE 69; RESP 18; TEMP 36.1; O2SAT 99
== END 2024-12-18 10:09 | disposition home or self-care (01) ==
PROVIDERS: PCP Internal Medicine; Visit Provider Surgery
PROC: 0DJ08ZZ Inspection of Upper Intestinal Tract, Via Natural or Artificial Opening Endoscopic (ICD-10-PCS; CPT 43235; principal; 2024-12-18 08:10)
DX: K21.9 Gastro-esophageal reflux disease without esophagitis (principal); E66.01 Morbid (severe) obesity due to excess calories; Z68.43 Body mass index [BMI] 50.0-59.9, adult; K44.9 Diaphragmatic hernia without obstruction or gangrene; I10 Essential (primary) hypertension; E11.9 Type 2 diabetes mellitus without complications; D50.9 Iron deficiency anemia, unspecified; I73.9 Peripheral vascular disease, unspecified; M79.7 Fibromyalgia; G43.909 Migraine, unspecified, not intractable, without status migrainosus; G47.33 Obstructive sleep apnea (adult) (pediatric); J45.909 Unspecified asthma, uncomplicated; F31.9 Bipolar disorder, unspecified; Z79.85 Long-term (current) use of injectable non-insulin antidiabetic drugs; Z79.82 Long term (current) use of aspirin; Z79.899 Other long term (current) drug therapy; Z91.041 Radiographic dye allergy status; Z91.040 Latex allergy status; Z88.8 Allergy status to other drugs, medicaments and biological substances; Z91.030 Bee allergy status; Z91.013 Allergy to seafood; Z98.51 Tubal ligation status; Z87.891 Personal history of nicotine dependence; Z56.0 Unemployment, unspecified
CPT/HCPCS: 43239; 88305; 88313; 88342; J2003; J2704; J3010

== ENCOUNTER → 2024-12-18 06:38 | Outpatient (BNV) | payer OTHER, SELFPAY | PROVIDERS: PCP Internal Medicine; Visit Provider Surgery | DX: K21.9 Gastro-esophageal reflux disease without esophagitis (principal) | CPT/HCPCS: 43239 ==

== ENCOUNTER 2025-01-01 10:17 | Outpatient (AMB) | payer OTHER, SELFPAY ==
--- NOTE | 2025-01-01 10:10 | MHC.WMTHER ---
Intake Intake Visit Reasons: TV BH F/U Allergies Iodinated Contrast Media (CONTRAST, IV) Allergy (Severe, Verified 12/01/24 11:45) Anaphylaxis bee pollen (bee stings) Allergy (Unknown, Verified 12/01/24 11:45) edema Benadryl Allergy (Unknown, Verified 12/01/24 11:45) edema, swelling citalopram (Celexa) Allergy (Unknown, Verified 12/01/24 11:45) edema hydrochlorothiazide Allergy (Unknown, Verified 12/01/24 11:45) unknown latex Allergy (Unknown, Verified 12/01/24 11:45) Swelling prednisolone Allergy (Unknown, Verified 12/01/24 11:45) unknown seafood Allergy (Unknown, Verified 12/01/24 11:45) Hives shellfish derived Allergy (Unknown, Verified 12/01/24 11:45) Swelling tramadol Allergy (Unknown, Verified 12/01/24 11:45) hives cefpodoxime Adverse Reaction (Intermediate, Verified 12/01/24 11:45) bradycardia, no energy sertraline Adverse Reaction (Intermediate, Verified 12/01/24 11:45) confused, yaya Diamox Sequels Adverse Reaction (Unknown, Verified 12/01/24 11:45) pain/tingling lisinopril Adverse Reaction (Unknown, Verified 12/01/24 11:45) dizziness [facility] Medical History Morbid obesity with BMI of 50.0-59.9, adult UTI (urinary tract infection) Recurrent finger dislocation Bilateral hand pain Migraine Morbid obesity Breakthrough bleeding associated with intrauterine device (IUD) Asthma Asthma Left ovarian cyst Morbid obesity due to excess calories Exposure to hepatitis C Insomnia GERD (gastroesophageal reflux disease) Peripheral vascular disease Iron deficiency anemia Irregular menses Well woman exam with routine gynecological exam Obstructive sleep apnea Fibromyalgia Tension headache Bipolar 1 disorder Hypertension Surgical History Hx of tubal ligation Family History Father Hypertension Lymphoma Myocardial infarct Diabetes mellitus Mother Epilepsy Asthma Sleep apnea Bipolar disorder Colon polyps Maternal Grandmother Diabetes mellitus Paternal Grandfather Pancreatic cancer Myocardial infarct Paternal Aunt Breast CA Sister No problems noted. Sister No problems noted. Brother Myocardial infarct Brother No problems noted. Daughter Seizure Anxiety Depression Asthma Migraine Daughter ADHD Daughter No problems noted. Paternal Uncle Schizophrenia Other Mental health disorder Social History Housing: Apartment Alcohol intake: never Patient Tobacco Use Status: Former Tobacco user Tobacco use type: Cigarette Years Smoked: 2010 stopped e-Cigarette/Vaping Use: Never Used Second Hand Smoke Exposure: No service: No Current occupational status: unemployed Current occupation: rt handed Sexual orientation: Straight/Heterosexual Gender identity: Female Cognitive needs: No Hearing needs: No Vision needs: No Female Reproductive History Menstrual Age of Menarche: 10 Behavioral Health Assessment Weight Management Therapy Therapy Notes Details Subjective: Patient has decided not to move forward with the surgical weight-loss (SWL) program following a recent negative interaction with the [facility] surgeon over the phone. She reports feeling down, with increased depressive symptoms, and is currently unable to follow her exercise plan due to ongoing health challenges. She is also not adhering to her meal plan, stating she does not tolerate meal bars but does well with shakes and would like to explore alternative meal plan options. Additionally, the patient was recently switched from Ozempic to Mounjaro at an intermediate dose but experienced significant side effects and discontinued the medication. Objective: Patient attended a follow-up visit via telephone, after initially being scheduled for an in-person appointment. The session focused on active listening and processing her recent negative experience with the surgeon. Her feelings were validated, and her responses to triggering events were explored. The cycle of anxiety and her behavioral responses were discussed, and strategies for pattern change were introduced. Together, a coping plan was developed to address ongoing emotional challenges. Problem-solving techniques were reviewed, and the patient inquired about alternative options for support and meal planning. Assessment/Response: Mental status:?depressed; patient is alert, oriented, and engaged in the session. Risk reported/identified:?No suicidal or homicidal ideation, no self-harm or harm to others reported or observed. No acute safety concerns identified. Assessment & Plan Assessment & Plan (1) Trauma and stressor-related disorder: Code(s): F43.9 - Reaction to severe stress, unspecified Plan -Patient is not cleared for surgery at this time. If she decides to continue with the program in the future, a comprehensive reassessment will be required. -Strongly recommend addressing underlying mental health challenges and engaging in appropriate treatment. Patient was provided with a list of local behavioral health providers who accept her insurance to facilitate ongoing care. -Emphasized the importance of developing a sustainable meal and exercise plan tailored to her preferences and tolerances. Recommended use of the [employer] paty to support meal planning and track progress. -This provider will update the care team regarding the patient?s adverse reaction to Mounjaro and consult for further guidance on medication management and potential modifications to her meal plan. -Patient agreed to continue working with this provider. Follow-up appointment scheduled for 01/11/25 to monitor progress, reassess readiness, and provide ongoing support. Telehealth Telehealth Telehealth Platform: [employer] Location of provider rendering services: practice address Location of patient: address on file Patient Identification confirmed using: Name, : Yes Telehealth method: voice only Patient verbally consented to treatment: Yes Patient verbally consented to billing insurance company: Yes Patient informed of any privacy concerns related to visit: Yes Minutes spent on Phone/Video with Pt.: 45 Coding Level of Care Code Established Pt Tele Psytx 45 mins ([id number]) Patient Type Established Diagnoses Trauma and stressor-related disorder F43.9 Time Spent (min) 45
== END 2025-01-01 11:00 | disposition home or self-care (01) ==
LOC: HO.HBST 10:17
PROVIDERS: PCP Internal Medicine; Visit Provider Counselor Mental Health
DX: F43.9 Reaction to severe stress, unspecified (principal)
CPT/HCPCS: 90834

== ENCOUNTER → 2025-01-01 10:17 | Outpatient (BNVA) | payer OTHER, SELFPAY | PROVIDERS: PCP Internal Medicine; Visit Provider Counselor Mental Health | DX: F43.9 Reaction to severe stress, unspecified (principal); Z13.89 Encounter for screening for other disorder ==

== ENCOUNTER 2025-01-18 11:10 | Outpatient (AMB) | payer OTHER, SELFPAY ==
--- NOTE | 2025-01-18 11:00 | A.OFFWM_ITS ---
Intake Intake Visit Reasons: TV BH F/U Allergies Iodinated Contrast Media (CONTRAST, IV) Allergy (Severe, Verified 12/01/24 11:45) Anaphylaxis bee pollen (bee stings) Allergy (Unknown, Verified 12/01/24 11:45) edema Benadryl Allergy (Unknown, Verified 12/01/24 11:45) edema, swelling citalopram (Celexa) Allergy (Unknown, Verified 12/01/24 11:45) edema hydrochlorothiazide Allergy (Unknown, Verified 12/01/24 11:45) unknown latex Allergy (Unknown, Verified 12/01/24 11:45) Swelling prednisolone Allergy (Unknown, Verified 12/01/24 11:45) unknown seafood Allergy (Unknown, Verified 12/01/24 11:45) Hives shellfish derived Allergy (Unknown, Verified 12/01/24 11:45) Swelling tramadol Allergy (Unknown, Verified 12/01/24 11:45) hives cefpodoxime Adverse Reaction (Intermediate, Verified 12/01/24 11:45) bradycardia, no energy sertraline Adverse Reaction (Intermediate, Verified 12/01/24 11:45) confused, yaya Diamox Sequels Adverse Reaction (Unknown, Verified 12/01/24 11:45) pain/tingling lisinopril Adverse Reaction (Unknown, Verified 12/01/24 11:45) dizziness [facility] Medical History Morbid obesity with BMI of 50.0-59.9, adult UTI (urinary tract infection) Recurrent finger dislocation Bilateral hand pain Migraine Morbid obesity Breakthrough bleeding associated with intrauterine device (IUD) Asthma Asthma Left ovarian cyst Morbid obesity due to excess calories Exposure to hepatitis C Insomnia GERD (gastroesophageal reflux disease) Peripheral vascular disease Iron deficiency anemia Irregular menses Well woman exam with routine gynecological exam Obstructive sleep apnea Fibromyalgia Tension headache Bipolar 1 disorder Hypertension Surgical History Hx of tubal ligation Family History Father Hypertension Lymphoma Myocardial infarct Diabetes mellitus Mother Epilepsy Asthma Sleep apnea Bipolar disorder Colon polyps Maternal Grandmother Diabetes mellitus Paternal Grandfather Pancreatic cancer Myocardial infarct Paternal Aunt Breast CA Sister No problems noted. Sister No problems noted. Brother Myocardial infarct Brother No problems noted. Daughter Seizure Anxiety Depression Asthma Migraine Daughter ADHD Daughter No problems noted. Paternal Uncle Schizophrenia Other Mental health disorder Social History Housing: Apartment Alcohol intake: never Patient Tobacco Use Status: Former Tobacco user Tobacco use type: Cigarette Years Smoked: 2010 stopped e-Cigarette/Vaping Use: Never Used Second Hand Smoke Exposure: No service: No Current occupational status: unemployed Current occupation: rt handed Sexual orientation: Straight/Heterosexual Gender identity: Female Cognitive needs: No Hearing needs: No Vision needs: No Female Reproductive History Menstrual Age of Menarche: 10 Behavioral Health Assessment Weight Management Therapy Therapy Notes Details PT presents for a pre-op f/up visit. PT reports she has decided to stop the weight-loss program. Reported been depressed and has stop all efforts since her last encounter with the dr and desn't feel ready. PT was provided with resources to work in small changes, behavioral activation plan discussed and given a copy. Also provided names of providers she can reach for trauma-focused treatment PT not considered stable to move forward with the program. She has advised to seek treatment for trauma history Coding
--- NOTE | 2025-01-18 11:32 | A.OFFWM_ITS ---
Intake Intake Visit Reasons: TV BH F/U Allergies Iodinated Contrast Media (CONTRAST, IV) Allergy (Severe, Verified 12/01/24 11:45) Anaphylaxis bee pollen (bee stings) Allergy (Unknown, Verified 12/01/24 11:45) edema Benadryl Allergy (Unknown, Verified 12/01/24 11:45) edema, swelling citalopram (Celexa) Allergy (Unknown, Verified 12/01/24 11:45) edema hydrochlorothiazide Allergy (Unknown, Verified 12/01/24 11:45) unknown latex Allergy (Unknown, Verified 12/01/24 11:45) Swelling prednisolone Allergy (Unknown, Verified 12/01/24 11:45) unknown seafood Allergy (Unknown, Verified 12/01/24 11:45) Hives shellfish derived Allergy (Unknown, Verified 12/01/24 11:45) Swelling tramadol Allergy (Unknown, Verified 12/01/24 11:45) hives cefpodoxime Adverse Reaction (Intermediate, Verified 12/01/24 11:45) bradycardia, no energy sertraline Adverse Reaction (Intermediate, Verified 12/01/24 11:45) confused, yaya Diamox Sequels Adverse Reaction (Unknown, Verified 12/01/24 11:45) pain/tingling lisinopril Adverse Reaction (Unknown, Verified 12/01/24 11:45) dizziness [facility] Medical History Morbid obesity with BMI of 50.0-59.9, adult UTI (urinary tract infection) Recurrent finger dislocation Bilateral hand pain Migraine Morbid obesity Breakthrough bleeding associated with intrauterine device (IUD) Asthma Asthma Left ovarian cyst Morbid obesity due to excess calories Exposure to hepatitis C Insomnia GERD (gastroesophageal reflux disease) Peripheral vascular disease Iron deficiency anemia Irregular menses Well woman exam with routine gynecological exam Obstructive sleep apnea Fibromyalgia Tension headache Bipolar 1 disorder Hypertension Surgical History Hx of tubal ligation Family History Father Hypertension Lymphoma Myocardial infarct Diabetes mellitus Mother Epilepsy Asthma Sleep apnea Bipolar disorder Colon polyps Maternal Grandmother Diabetes mellitus Paternal Grandfather Pancreatic cancer Myocardial infarct Paternal Aunt Breast CA Sister No problems noted. Sister No problems noted. Brother Myocardial infarct Brother No problems noted. Daughter Seizure Anxiety Depression Asthma Migraine Daughter ADHD Daughter No problems noted. Paternal Uncle Schizophrenia Other Mental health disorder Social History Housing: Apartment Alcohol intake: never Patient Tobacco Use Status: Former Tobacco user Tobacco use type: Cigarette Years Smoked: 2010 stopped e-Cigarette/Vaping Use: Never Used Second Hand Smoke Exposure: No service: No Current occupational status: unemployed Current occupation: rt handed Sexual orientation: Straight/Heterosexual Gender identity: Female Cognitive needs: No Hearing needs: No Vision needs: No Female Reproductive History Menstrual Age of Menarche: 10 Behavioral Health Assessment Weight Management Therapy Therapy Notes Details Patient was scheduled for a pre-op behavioral health visit. She reported deciding to discontinue the weight-loss program, citing increased depression and cessation of efforts since her last medical encounter. She does not feel ready to proceed at this time. Patient appeared withdrawn and discouraged during the visit. No acute safety concerns reported. Discussed behavioral activation strategies and provided a [facility] activation plan. Supplied a list of trauma-focused behavioral health providers for follow-up. Assessment & Plan Assessment & Plan (1) Trauma and stressor-related disorder: Code(s): F43.9 - Reaction to severe stress, unspecified Plan -Patient is not currently stable to proceed with the weight-loss program due to depressive symptoms and unresolved trauma history. Advised patient to seek treatment for trauma and address underlying mental health needs before reconsidering the program. Provided resources and referrals for behavioral health support. -Provider will inform the care team about the patient?s decision to withdraw from the weight-loss program. -No follow-up scheduled at this time. Telehealth Telehealth Telehealth Platform: [employer] Location of provider rendering services: other (Home office. [place], [place]) Location of patient: address on file Patient Identification confirmed using: Name, : Yes Telehealth method: voice only Patient verbally consented to treatment: Yes Patient verbally consented to billing insurance company: Yes Patient informed of any privacy concerns related to visit: Yes Minutes spent on Phone/Video with Pt.: 20 Coding Level of Care Code Established Pt Tele Psytx 30 mins (56056) Patient Type Established Diagnoses Trauma and stressor-related disorder F43.9 Time Spent (min) 20
== END 2025-01-18 11:34 | disposition home or self-care (01) ==
LOC: HO.HBST 11:10
PROVIDERS: PCP Internal Medicine; Visit Provider Counselor Mental Health
DX: F43.9 Reaction to severe stress, unspecified (principal)
CPT/HCPCS: 90832

== ENCOUNTER 2025-02-15 08:41 | Outpatient (AMB) | payer OTHER, SELFPAY ==
[2025-02-15 08:52] VITALS: BP 148/86; PULSE 73; TEMP 36.3; O2SAT 97; BMI 52.2
--- NOTE | 2025-02-15 08:52 | MHC.PC.OV ---
Vital Signs 02/15/25 08:52 Height 5 ft Weight 267 lb 4 oz BMI 52.2 BP 148/86 H Blood Pressure Location Lt brachial Position Sitting Pulse 73 Pulse Source Pulse Oximeter Temp 97.3 F Temp Source Temporal Artery Scan Pulse Oximetry (%) 97 Oxygen Delivery Method Room Air Intake Visit Reasons: Annual Exam Allergies Iodinated Contrast Media (CONTRAST, IV) Allergy (Severe, Verified 02/15/25 08:55) Anaphylaxis bee pollen (bee stings) Allergy (Unknown, Verified 02/15/25 08:55) edema Benadryl Allergy (Unknown, Verified 02/15/25 08:55) edema, swelling citalopram (Celexa) Allergy (Unknown, Verified 02/15/25 08:55) edema hydrochlorothiazide Allergy (Unknown, Verified 02/15/25 08:55) unknown latex Allergy (Unknown, Verified 02/15/25 08:55) Swelling prednisolone Allergy (Unknown, Verified 02/15/25 08:55) unknown seafood Allergy (Unknown, Verified 02/15/25 08:55) Hives shellfish derived Allergy (Unknown, Verified 02/15/25 08:55) Swelling tramadol Allergy (Unknown, Verified 02/15/25 08:55) hives cefpodoxime Adverse Reaction (Intermediate, Verified 02/15/25 08:55) bradycardia, no energy sertraline Adverse Reaction (Intermediate, Verified 02/15/25 08:55) confused, yaya Diamox Sequels Adverse Reaction (Unknown, Verified 02/15/25 08:55) pain/tingling lisinopril Adverse Reaction (Unknown, Verified 02/15/25 08:55) dizziness Medication List - Last Reconciled 02/15/25 by Atif Milian MD albuterol sulfate 90 mcg/actuation (Ventolin HFA) 2 puffs inhalation Q6H PRN amlodipine 5 mg PO DAILY ascorbate calcium (vitamin C) 500 mg PO DAILY 90 days aspirin (Adult Aspirin Regimen) 81 mg PO DAILY cholecalciferol (vitamin D3) 50 mcg PO DAILY 90 days cyanocobalamin (vitamin B-12) 1,000 mcg PO DAILY 90 days docusate sodium (Colace) 200 mg (2 x 100 mg) PO BEDTIME 90 days epinephrine (EpiPen 2-Marshal) 0.3 mg (0.3 mL) IM Q10M PRN fluticasone propionate 110 mcg/actuation 2 puffs inhalation BID furosemide 20 mg PO DAILY 90 days levonorgestrel (Mirena) intrauterine losartan 100 mg PO DAILY meloxicam 15 mg PO DAILY omeprazole 20 mg PO DAILY polyethylene glycol 3350 (Miralax) 17 grams PO DAILY [Rollator with seat and seat As directed] sumatriptan succinate 50 - 100 mg orally at onset of headache, may repeat in 2 hrs PRN; max 2 tabs per day or 4 tabs/week (may take with Ibuprofen) 30 days Tobacco use date assessed: 02/15/25 Dental Screening Dental Screen Date: 02/15/25 Did you have a dental visit in the last 12 months?: No Did you have a dental problem in the last 6 months where you did not have access to dental care?: No Was dental information given to patient?: Patient has dentist HPI Annual Exam HPI Details dizziness [facility] Medical History Morbid obesity with BMI of 50.0-59.9, adult UTI (urinary tract infection) Recurrent finger dislocation Bilateral hand pain Migraine Morbid obesity Breakthrough bleeding associated with intrauterine device (IUD) Asthma Asthma Left ovarian cyst Morbid obesity due to excess calories Exposure to hepatitis C Insomnia GERD (gastroesophageal reflux disease) Peripheral vascular disease Iron deficiency anemia Irregular menses Well woman exam with routine gynecological exam Obstructive sleep apnea Fibromyalgia Tension headache Bipolar 1 disorder Hypertension Surgical History Hx of tubal ligation Family History Father Hypertension Lymphoma Myocardial infarct Diabetes mellitus Mother Epilepsy Asthma Sleep apnea Bipolar disorder Colon polyps Maternal Grandmother Diabetes mellitus Paternal Grandfather Pancreatic cancer Myocardial infarct Paternal Aunt Breast CA Sister No problems noted. Sister No problems noted. Brother Myocardial infarct Brother No problems noted. Daughter Seizure Anxiety Depression Asthma Migraine Daughter ADHD Daughter No problems noted. Paternal Uncle Schizophrenia Other Mental health disorder Social History Housing: Apartment Alcohol intake: never Patient Tobacco Use Status: Former Tobacco user Tobacco use type: Cigarette Years Smoked: 2010 stopped e-Cigarette/Vaping Use: Never Used Second Hand Smoke Exposure: No service: No Current occupational status: unemployed Current occupation: rt handed Sexual orientation: Straight/Heterosexual Gender identity: Female Cognitive needs: No Hearing needs: No Vision needs: No Female Reproductive History Menstrual Age of Menarche: 10 Questionnaire PHQ-9 Over the last 2 weeks, how often have you been bothered by any of the following problems? 1. Little interest or pleasure in doing things: several days 2. Feeling down, depressed, or hopeless: several days 3. Trouble falling or staying asleep, or sleeping too much: nearly every day 4. Feeling tired or having little energy: several days 5. Poor appetite or overeating: nearly every day 6. Feeling bad about yourself - or that you are a failure or have let yourself or your family down: several days 7. Trouble concentrating on things, such as reading the newspaper or watching television: several days 8. Moving or speaking so slowly that other people could have noticed. Or the opposite - being so fidgety or restless that you have been moving around a lot more than usual: not at all 9. Thoughts that you would be better off or of hurting yourself in some way: not at all Total score: 11 Source: Developed by Drs. Dakotah Faustin, Shaylee Giron, Bonilla Gomez and colleagues, with an educational berhane from [employer]. Thrive Questionnaire Date Thrive assessed: 07/08/24 I am a: Patient What is your living situation today?: I have a place to live, but I am worried about losing it in the future Within the past 12 months, did the food you bought not last and you didn't have the money to get more?: I choose not to answer this question Within the past 12 months, did you worry whether your food would run out before you got money to buy more?: Sometimes True Do you have trouble paying for medicines?: No Do you have trouble getting transportation to medical appointments?: No Do you have trouble paying your heating and electricity bill?: I choose not to answer this question Do you have trouble taking care of your child, family member or friend?: I choose not to answer this question Do you have trouble with day-to-day activities such as bathing, preparing meals, shopping, managing finances, etc.?: Yes Are you currently unemployed and looking for a job?: Yes Are you interested in more education?: No Please select the resources that you would like help with: Food and Care for elder or disabled Currently or been in a relationship where the following occur: I choose not to answer THRIVE Score: 2 AUDIT C Alcohol Use Questionnaire (AUDIT-C) 1. How often do you have a drink containing alcohol?: Never 3. How often do you have six or more drinks on one occasion?: Never Total Score: 0 JORI-7 AMB Questionnaire JORI-7 Date JORI - 7 assessed: 07/08/24 Feeling nervous, anxious, or on edge: 1 = Several days Not being able to stop or control worryin = Nearly every day Worrying too much about different things: 3 = Nearly every day Trouble relaxin = More than half the days Being so restless that it is hard to sit still: 1 = Several days Becoming easily annoyed or irritable: 1 = Several days Feeling afraid as if something awful might happen: 1 = Several days Total JORI-7 score (0-4 normal; 5-9 mild; 10-14 moderate; 15-21 severe): 12 Source: Developed by Drs. Dakotah Faustin, Shaylee Giron, Bonilla Gomez and colleagues, with an educational berhane from [employer]. Review of Systems Const Denies poor appetite and Denies weakness Eyes Denies no additional complaints ENT Reports Normal hearing present, Denies dizziness, Denies nasal congestion, Denies tinnitus and Denies sore throat Card Denies chest pain, Denies syncope, Denies rapid heart rate and Denies dyspnea Resp Denies cough and Denies dyspnea GI Denies change in stool character, Reports constipation, Denies diarrhea, Denies nausea and Denies vomiting Denies urinary frequency, Denies difficulty voiding and Denies dysuria Neuro Reports Normal hearing present, Denies confusion, Denies dizziness, Denies syncope and Denies weakness Psych Denies confusion Physical exam (Primary Care) Vital Signs: Last Vital Signs Temp 97.3 F 02/15/25 08:52 Pulse 73 02/15/25 08:52 BP 148/86 H 02/15/25 08:52 Pulse Ox 97 02/15/25 08:52 Oxygen Delivery Method Room Air 02/15/25 08:52 BMI result Body Mass Index 52.2 Tobacco/Smoking Status: Tobacco use Status Tobacco use date assessed 02/15/25 02/15/25 08:56 Patient Tobacco Use Status Former Tobacco user 02/15/25 08:56 Tobacco use type Cigarette 02/15/25 08:56 e-Cigarette/Vaping Use Never Used 02/15/25 08:56 PHQ-9: PHQ-9 Score PHQ-9: Total score 11 02/15/25 08:56 Thrive Assessment: Date of Thrive Assessment Date Thrive assessed 07/08/24 02/15/25 08:56 Currently or been in a relationship where the following occur: I choose not to answer Const General: No confusion Orientation/consciousness: No confusion HENMT Head: Yes normocephalic Ears: external ears normal and TM's normal bilaterally Face and sinus: Yes normal facial exam Mouth: moist mucous membranes Throat: Yes tonsils normal Eyes Conjunctivae: conjunctivae normal Pupils: Equal, round and reactive pupils present and Pupil accommodation reflex normal Direct Ophthalmoscopy: normal light reflex Neck Neck: No lymphadenopathy Thyroid: Thyroid normal Chest Chest palpation & inspection: normal inspection of the chest Resp Effort & Inspection: normal respiratory effort and no audible wheezes Auscultation: clear to auscultation bilaterally, no crackles, no wheezes and lung sounds not diminished Cardio Rate: regular rate Rhythm: regular rhythm Peripheral pulses: radial pulses present and dorsalis pedis present GI Palpation (GI): no masses Auscultation: normal bowel sounds and normoactive bowel sounds Rectal Exam - Female: deferred Skin General skin exam: no rashes or lesions noted Rashes: no rashes Neuro General: No confusion Cranial nerves: Yes Equal, round and reactive pupils present and Yes Normal hearing present Cognition (Neuro): normal cognition Gait exam (Neuro): Normal gait present Motor exam (neuro): 5/5 motor strength present throughout Deep tendon reflexes (DTR's): Right brachioradialis reflex intensity grade: 2+, Left brachioradialis reflex intensity grade: 2+, Right patellar reflex intensity grade: 2+ and Left patellar reflex intensity grade: 2+ Extrem General: No edema Coding Level of Care Code Est Pt Prev Care 40-64y(95074) Diagnoses Annual physical exam Z00.00 Obstructive sleep apnea G47.33 Mild intermittent asthma without complication J45.20 Asthma severity: mild Asthma persistence: intermittent Asthma complication type: uncomplicated Chronic migraine w/o aura w/o status migrainosus, not intractable G43.709 Gastroesophageal reflux disease without esophagitis K21.9 Esophagitis presence: without esophagitis Hepatic steatosis K76.0 Obesity, morbid, BMI 50 or higher E66.01 Essential hypertension I10 Hypertension type: essential hypertension Bipolar 1 disorder F31.9 Impaired glucose tolerance R73.02 Vitamin B 12 deficiency E53.8 Assessment & Plan Assessment & Plan (1) Annual physical exam: Code(s): Z00.00 - Encounter for general adult medical examination without abnormal findings Category: Medical Plan: Patient is advised to eat healthy, keep well hydrated, keep active and have adequate sleep. (2) Obstructive sleep apnea: Comment: SHE HAS HAD MODERATE HE HAS SEVERE OBSTRUCTIVE SLEEP APNEA, CONFIRMED WITH THE SLEEP STUDIES IN 2018 AND 2020. HAS BEEN TREATED WITH CPAP., WHICH SHE DID NOT USE FOR ABOUT A YEAR. LAST SLEEP STUDY IN NOVEMBER 2021 SHOWS A MILD DEGREE OF ROCIO. BUT SHE DOES HAVE ASSOCIATED COMORBID CONDITIONS, AND WOULD BENEFIT FROM THE USE OF CPAP. PATIENT HAS STARTED USING THE CPAP ALREADY, WITH PRESSURE SETTING AUTO PAP MODE 5-20 CMS , USING FULLFACE MASK. SHE IS WELL VERSED WITH THE USE OF CPAP. WE WILL CONTACT DME PROVIDER AND, DOWNLOAD HER COMPLIANCE DATA. Code(s): G47.33 - Obstructive sleep apnea (adult) (pediatric) Category: Medical Plan: Discussed about CPAP use. (3) Asthma: Comment: SHE HAS HAD MILD INTERMITTENT BRONCHIAL ASTHMA, MOST LIKELY SECONDARY TO ENVIRONMENTAL ALLERGIES. [place] : ADVISED TO CONTINUE FLOVENT 110 2 PUFFS B.I.D.. AND USE ALBUTEROL HFA 2 PUFFS Q 4-6 HOURS ONLY P.R.N. Code(s): J45.909 - Unspecified asthma, uncomplicated Category: Medical Qualifiers: Asthma severity: mild Asthma persistence: intermittent Asthma complication type: uncomplicated Qualified Code(s): J45.20 - Mild intermittent asthma, uncomplicated Plan: Continue with albuterol inhaler as needed (4) Chronic migraine w/o aura w/o status migrainosus, not intractable: Code(s): G43.709 - Chronic migraine without aura, not intractable, without status migrainosus Category: Medical Plan: Continue to follow-up with Neurology on migraine medication (5) GERD (gastroesophageal reflux disease): Code(s): K21.9 - Gastro-esophageal reflux disease without esophagitis Category: Medical Qualifiers: Esophagitis presence: without esophagitis Qualified Code(s): K21.9 - Gastro-esophageal reflux disease without esophagitis Plan: Avoid the foods that causes that usually spicy foods, tomato products, juices, coffee, soda and foods that your sensitive to. After eating do not lie down, allow 3-4 hours before in lie down. And keep the head of bed above 30 degrees to avoid the acid from going up. (6) Hepatic steatosis: Comment: February 2024Hepatomegaly, 16.6 cm. Increased hepatic parenchymal heterogeneity and echogenicity could be associated with hepatocellular disease/hepatic steatosis and substantially limits visualization. Correlation with liver function tests and clinical exam recommended to determine further management. Code(s): K76.0 - Fatty (change of) liver, not elsewhere classified Category: Medical Plan: Low-fat diet and exercise (7) Obesity, morbid, BMI 50 or higher: Code(s): E66.01 - Morbid (severe) obesity due to excess calories Category: Medical Plan: Continue to follow-up with weight management, diet and exercise (8) Hypertension: Code(s): I10 - Essential (primary) hypertension Category: Medical Qualifiers: Hypertension type: essential hypertension Qualified Code(s): I10 - Essential (primary) hypertension Plan: Continue with blood pressure medication. Decrease salt intake and exercise on losartan 50 mg once a day amlodipine 5 mg once a day (9) Bipolar 1 disorder: Comment: Anxiety disorder, PTSD, panic attacks, BHN (07/2021) FOR THIS REASON ALSO IT IS BETTER FOR HER TO USE THE CPAP. Code(s): F31.9 - Bipolar disorder, unspecified Category: Medical Plan: Continue to follow-up with counseling and therapy (10) Impaired glucose tolerance: Code(s): R73.02 - Impaired glucose tolerance (oral) Category: Medical Plan: Decrease the amount of carbohydrate intake, pasta, bread, rice and potatoes are all sugar and that is aside from all the sweet stuff, remember that fruits are good but they are Sweet also. (11) Vitamin B 12 deficiency: Code(s): E53.8 - Deficiency of other specified B group vitamins Category: Medical Plan: B12 1000 mcg once a day Plan History of Present Illness The patient is a 39-year-old female presenting for a wellness visit and management of chronic conditions. She has a history of gastroesophageal reflux disease, hypertension, obstructive sleep apnea, bipolar disorder, asthma, migraine, and hepatic steatosis. The patient reports a weight loss of 5 pounds since her last visit and has been following up with weight management programs. In November, she underwent an esophagogastroduodenoscopy (EGD) which returned normal results. An abdominal ultrasound showed hepatomegaly, hepatic steatosis, and borderline splenomegaly, with high elastography values suggestive of compensated advanced chronic liver disease. Her last blood work in September showed normal blood count, electrolytes, renal function, and liver function, but a blood sugar level of 114 mg/dL and hemoglobin A1c of 6.3%. C-reactive protein was elevated at 5.61 mg/L, LDL cholesterol was 101 mg/dL, and vitamin B12 was low at 2.274 pg/mL. The patient has a history of costochondritis, which was evaluated during an ER visit for chest pain, and was found to be non-cardiac in origin. She is currently on multiple medications including losartan, amlodipine, and vitamin B12 supplements. Health Maintenance - Mammogram is due for preventative screening. - Blood pressure management with losartan and amlodipine. - Weight management through diet and exercise. - Vitamin B12 supplementation for deficiency. Social History - The patient does not consume alcohol and has a history of smoking cessation. - She is involved in a weight management program and follows a low-fat diet. - The patient is planning a mission trip to [place] with her mosque. Review of Systems - General: Reports weight loss of 5 pounds. Denies fever. - Cardiovascular: Reports dizziness. Denies chest pain. - Respiratory: Denies shortness of breath. - Gastrointestinal: Reports nausea occasionally, difficulty swallowing at times. - Neurological: Reports migraines. - Genitourinary: Reports urinary retention. Physical Exam General: Cooperative, healthy appearing, comfortable, no acute distress and well developed Orientation: Patient oriented x3 Limitations: No limitations Head: Normal to inspection Ears: Hearing grossly normal bilaterally Nose: Normal external nose present Face and sinus: Normal facial exam Eyes: Appearance normal, both eyes and all related structures Neck: Normal visual inspection and Yes full ROM Respiratory: Normal respiratory effort and able to speak in complete sentences. Clear to auscultation bilaterally Cardiovascular: Regular rate and rhythm. Normal S1 and S2 GI: Normal to inspection. Soft to palpation and nontender Skin: No rashes or lesions noted Neuro: Patient oriented x3 Extremities: Normal to inspection Results - Labs: Normal blood count, electrolytes, renal function, liver function; blood sugar 114 mg/dL, hemoglobin A1c 6.3%, elevated C-reactive protein 5.61 mg/L, LDL cholesterol 101 mg/dL, low vitamin B12 2.274 pg/mL. - Imaging: Abdominal ultrasound showed hepatomegaly, hepatic steatosis, borderline splenomegaly, high elastography values suggestive of compensated advanced chronic liver disease. - Procedures: Esophagogastroduodenoscopy (EGD) performed in November, results normal. Plan Patient was informed and verbally consented to the use of an ambient scribe for clinic note documentation during this visit. 1. Gastroesophageal Reflux Disease (Gerd) The patient is advised to continue with a low-fat diet and exercise to manage GERD symptoms. Omeprazole is prescribed for symptom control. 2. Hypertension The patient's blood pressure management includes losartan 100 mg and amlodipine 5 mg daily. Regular monitoring of blood pressure is recommended, and adjustments to medication will be made as needed. 3. Obstructive Sleep Apnea The patient is encouraged to resume CPAP therapy to prevent cardiovascular complications. 4. Bipolar Disorder The patient is advised to continue follow-up with counseling and therapy for bipolar disorder management. 5. Asthma The patient is instructed to continue using the albuterol inhaler as needed for asthma symptoms. 6. Migraine The patient is advised to continue follow-up with neurology for migraine management and medication adjustments. 7. Hepatic Steatosis The patient is advised to follow a low-fat diet and engage in regular exercise to manage hepatic steatosis. 8. Vitamin B12 Deficiency Vitamin B12 supplementation is recommended at 1000 mcg daily to address deficiency. 9. Impaired Glucose Tolerance The patient is advised to monitor blood glucose levels regularly and maintain a healthy diet and exercise regimen to manage impaired glucose tolerance. 10. Costochondritis The patient is advised to manage costochondritis symptoms with pain relief measures as needed. Discussion Notes During the visit, I discussed the importance of managing chronic conditions such as hypertension, obstructive sleep apnea, and hepatic steatosis through lifestyle modifications and medication adherence. We reviewed the need for regular follow-ups and monitoring of blood pressure and glucose levels to prevent complications. I emphasized the significance of resuming CPAP therapy to mitigate cardiovascular risks associated with sleep apnea. Patient Instructions - Continue with a low-fat diet and regular exercise. - Take prescribed medications as directed, including losartan, amlodipine, and vitamin B12 supplements. - Resume CPAP therapy to manage sleep apnea. - Monitor blood pressure and glucose levels regularly. - Schedule a mammogram for preventative screening. Orders: Orders Comprehensive Met. Panel Today R73.02 - Impaired glucose tolerance (oral) Hemoglobin A1c Today R73.02 - Impaired glucose tolerance (oral) Complete Blood Count Auto Diff Today R73.02 - Impaired glucose tolerance (oral) Free T4 (Free Thyroxine) Today R73.02 - Impaired glucose tolerance (oral) Thyroid Stimulating Hormone Today R73.02 - Impaired glucose tolerance (oral) Lipid Panel Today E78.00 - Pure hypercholesterolemia, unspecified, R73.02 - Impaired glucose tolerance (oral) Vitamin B12 and Folate Today R73.02 - Impaired glucose tolerance (oral) Medications: New losartan 100 mg PO DAILY 30 tabs 3RF I10 - Essential (primary) hypertension semaglutide (Ozempic) for 4 weeks 0.25 mg (0.368 mL) subcut QWEEK 3 mL 2RF E66.01 - Morbid (severe) obesity due to excess calories, Z68.43 - Body mass index [BMI] 50.0-59.9, adult
== END 2025-02-15 09:29 | disposition home or self-care (01) ==
LOC: HO.HMCH 08:42
PROVIDERS: PCP Internal Medicine; Visit Provider Internal Medicine
DX: Z00.00 Encounter for general adult medical examination without abnormal findings (principal); G47.33 Obstructive sleep apnea (adult) (pediatric); J45.20 Mild intermittent asthma, uncomplicated; G43.709 Chronic migraine without aura, not intractable, without status migrainosus; K21.9 Gastro-esophageal reflux disease without esophagitis; K76.0 Fatty (change of) liver, not elsewhere classified; E66.01 Morbid (severe) obesity due to excess calories; I10 Essential (primary) hypertension; F31.9 Bipolar disorder, unspecified; R73.02 Impaired glucose tolerance (oral); E53.8 Deficiency of other specified B group vitamins

== ENCOUNTER → 2025-02-15 08:41 | Outpatient (BNVA) | payer OTHER, SELFPAY | PROVIDERS: PCP Internal Medicine; Visit Provider Internal Medicine | DX: Z00.00 Encounter for general adult medical examination without abnormal findings (principal); G47.33 Obstructive sleep apnea (adult) (pediatric); J45.20 Mild intermittent asthma, uncomplicated; G43.709 Chronic migraine without aura, not intractable, without status migrainosus; K21.9 Gastro-esophageal reflux disease without esophagitis; K76.0 Fatty (change of) liver, not elsewhere classified; E66.01 Morbid (severe) obesity due to excess calories; I10 Essential (primary) hypertension; F31.9 Bipolar disorder, unspecified; R73.02 Impaired glucose tolerance (oral); E53.8 Deficiency of other specified B group vitamins; R73.01 Impaired fasting glucose; M94.0 Chondrocostal junction syndrome [Tietze]; Z99.89 Dependence on other enabling machines and devices; Z68.43 Body mass index [BMI] 50.0-59.9, adult | CPT/HCPCS: 99396 ==

== ENCOUNTER 2025-03-12 11:25 | Outpatient (REF) | payer OTHER, SELFPAY ==
--- NOTE | ~2025-03-12 | MM_ITS ---
EXAMINATION: MM SCREENING DIGITAL BREAST TOMOSYNTHESIS, BILATERAL CLINICAL INFORMATION: Screening. Asymptomatic. COMPARISON: Mammography: Comparison is made with available priors TECHNIQUE: Digital breast mammography with tomosynthesis is performed in both the craniocaudal and mediolateral oblique views along with computer-aided detection (CAD). FINDINGS: There are scattered areas of fibroglandular density. There are no significant masses, abnormal calcifications, or other abnormalities. MM/MM tomosynthesis screening BI IMPRESSION: No mammographic evidence of malignancy. ASSESSMENT: BI-RADS Category 1: Negative RECOMMENDATION: Routine annual mammography screening. 1 year F/U This examination should not preclude the clinical evaluation of a suspicious palpable abnormality. This patient's information was entered into a reminder system with a target due date for their next mammogram. Electronically signed by: Mine Panda DO 03/16/2025 09:06 AM RAY
== END 2025-03-12 11:26 | disposition home or self-care (01) ==
LOC: HO.MAMMO 11:25
PROVIDERS: PCP Internal Medicine; Visit Provider Internal Medicine
DX: Z12.31 Encounter for screening mammogram for malignant neoplasm of breast (principal)
CPT/HCPCS: 77063; 77067

== ENCOUNTER → 2025-03-12 11:30 | Outpatient (BNV) | payer OTHER, SELFPAY | PROVIDERS: PCP Internal Medicine; Visit Provider Internal Medicine | DX: Z12.31 Encounter for screening mammogram for malignant neoplasm of breast (principal) | CPT/HCPCS: 77063; 77067 ==

== ENCOUNTER 2025-03-18 08:53 | Outpatient (REF) | payer OTHER, SELFPAY ==
--- OUTSIDE RECORDS SUMMARY | 2025-03-13 23:59 | XMS_ITS | Continuity of Care Document ---
Author Organization [facility], [address] Address [address] [place] [address]- Care Team Providers Care Vegetable Sorter Name Role Phone Po Atif FERNANDEZ Primary Care Physician [phone] Encounter [facility] [place] Date(s): 10/02/24 - 03/13/[address] [address]- Attending Physician: Lurdes Flowers MD Admitting Physician: Lurdes Flowers MD Referring Physician: Lurdes Flowers MD Encounter Type: Pre-Outpt Allergies, Adverse Reactions, Alerts Substance Criticality Severity Reaction Reaction Severity Status Diamox Tingling Active Benadryl Active CeleXA Hives Active Seafood Facial swelling Acti ve Bee Stings Localized super ficial swelling of skin Active Contrast Dye can't move, tu rns purple. Active Immunizations Given and Recorded Vaccine Date Status Refusal Reason influenza virus vaccine, inactivated 02/17/13 Give n tetanus/diphtheria/pertussis, acel(Tdap) 1 02/17/13 Given 1Admin Note: vis 05-22-2011 Medications albuterol inhaler (OP) Every 4 hours, PRN Wheezing/Shortness of Breath, 0 Refills, Maintenance Start Date: 06/10/19 Status: Ordered Medication Dispense Status: Completed Total Allowed Fills: 1 Fills Dispensed: 0 aspirin 81 mg oral tablet, chewable 81 mg, 1, tablet, Daily, Refills 0, Maintenance, 02/19/22 1:36:00 AM EDT, Partial fill upon patientrequest if the prescription is for a schedule II opioid drug. Start Date: 02/19/22 Status: Ordered Medication Dispense Status: Completed Total Allowed Fills: 1 Fills Dispensed: 0 Flovent HFA Inhalation, 2 times a day, 0 Refills, Maintenance, 06/10/19 8:36:00 AM EST Start Date: 06/10/19 Status: Ordered Medication Dispense Status: Completed Total Allowed Fills: 1 Fills Dispensed: 0 ibuprofen 600 mg oral tablet 1 tablet = 600 mg, By Mouth, Every 6 hours, # 40 tablet, 0 Refills, Maintenance, 02/19/13 8:45:50 AM EDT, Tablet Start Date: 02/19/13 Status: Ordered Medication Dispense Status: Completed Quantity: 40.0 Unit: tablet Total Allowed Fills: 1 Fills Dispensed: 0 losartan 50 mg oral tablet 50 mg, 1, tablet, By Mouth, Daily, # 30 tablet, Refills 0, Maintenance, 02/19/22 1:37:00 AM EDT, Partial fill upon patient request if the prescription is for a schedule II opioid drug. Start Date: 02/19/22 Status: Ordered Medication Dispense Status: Completed Quantity: 30.0 Unit: tablet Total Allowed Fills: 1 Fills Dispensed: 0 Tylenol 325 mg oral tablet 1 tablet = 325 mg, By Mouth, Every 4 hours, PRN for pain, # 60 tablet, 0 Refills, Maintenance, 02/19/13 8:45:52 AM EDT, Tablet Start Date: 02/19/13 Status: Ordered Medication Dispense Status: Completed Quantity: 60.0 Unit: tablet Total Allowed Fills: 1 Fills Dispensed: 0 Problem List Condition Confirmation Course Effective Dates Status Health St atus Informant Severe obesity Confirmed Active Social History Social History Type Response Smoking Status Former smoker, quit more than 30 days ago; Other: Quit smoking over 7 years ago; entered on: 06/10/19 Sex Sex Representation Female (finding) Patient Care team information Care Team Personnel Name: Oumou Salinas RN Position: S OB RN Member Role: Primary Care Nurse Name: Atif Milian MD Position: Reference Physician Member Role: PCP Address: [address] [place] [address] Telecom: Care Team Related Persons Name: RADHA LUTZ Insurance Providers Guarantor name: KEYSHA HOGAN [employer] Plan Information #: 1 Payer: [employer] Payer Identifier: NA Member Number: [id number] Group Number: [id number] Subscriber Identifier: [id number] Relationship to Subscriber: self Coverage Type: NA Coverage Verification Date: Telecom: NA Address: NA
[2025-03-18 10:02] LABS: Cholesterol 166 mg/dL (<200); HDL Cholesterol 42 mg/dL (>40); Triglycerides 82 mg/dL (<150)
== END 2025-03-18 08:54 | disposition home or self-care (01) ==
LOC: HO.LAB 08:53
PROVIDERS: Absent Provider Physician Assistant Surgical; PCP Internal Medicine; Visit Provider Internal Medicine
DX: E78.5 Hyperlipidemia, unspecified (principal)
CPT/HCPCS: 36415; 80061; 83695

== ENCOUNTER 2025-03-19 09:52 | Outpatient (REF) | payer OTHER, SELFPAY ==
[2025-03-19 11:26] LABS: MANUAL DIFF FLAG NO
[2025-03-19 12:03] LABS: Hematocrit 41.4 % (37.0-47.0); Hemoglobin 13.7 g/dl (12.0-16.0); Imm Gran Abs Auto 0.03 X10*3/uL (0.00-0.03); Imm Gran Pct Auto 0.3 % (0.0-0.4); Lymphocytes Absolute Auto 2.5 X10*3/uL (1.2-4.9); Mean Corpuscular HGB Conc 33.1 g/dl (31.0-35.0); Mean Corpuscular Hemoglobin 28.1 pg (27.0-33.0); Mean Corpuscular Volume 84.8 fL (80.0-98.0); NRBC Abs Auto 0.000 X10*3/uL (0.0-0.012); NRBC Pct Auto 0.0 /100WBC (0.0-0.2); Platelet Count 374 X10*3/uL (160-400); Red Blood Count 4.88 X10*6/uL (4.20-5.50); White Blood Count 9.8 X10*3/uL (4.8-10.8)
[2025-03-19 12:31] LABS: Appearance Urine Clear; Glucose Urine UA Negative (Negative); PH 6.5 (5.0-9.0); Specific Gravity - Urine 1.020 (1.005-1.025); UMIC TRIGGER UACC YES
[2025-03-19 12:56] LABS: Alanine Aminotransferase 21 U/L (0-31); Albumin Level 4.0 g/dL (3.5-5.0); Alkaline Phosphatase 117 U/L (39-117); Anion Gap 10 (12-20); Aspartate Amino Transferase 20 U/L (5-31); Blood Urea Nitrogen 12 mg/dL (9-16); Calcium 9.2 mg/dL (8.4-10.2); Carbon Dioxide 31 mmol/L (22-29); Chloride 105 mmol/L (96-108); Cholesterol 164 mg/dL (<200); Estimated Glomerular Filt Rate > 60; HDL Cholesterol 42 mg/dL (>40); Potassium 4.2 mmol/L (3.3-5.1); Sodium 142 mmol/L (135-145); Total Protein 7.4 g/dL (6.5-8.0); Triglycerides 72 mg/dL (<150)
[2025-03-19 13:10] LABS: Free T4 (Free Thyroxine) 0.99 ng/dL (0.71-1.85); Thyroid Stimulating Hormone 1.92 uIU/mL (0.32-4.0)
[2025-03-19 13:21] LABS: Folate 11.5 ng/mL (> or = 4.0); Vitamin B12 254 pg/mL (200-900)
== END 2025-03-19 09:53 | disposition home or self-care (01) ==
LOC: HO.LAB 09:52
PROVIDERS: PCP Internal Medicine; Visit Provider Internal Medicine
DX: I10 Essential (primary) hypertension (principal); K21.9 Gastro-esophageal reflux disease without esophagitis; G47.33 Obstructive sleep apnea (adult) (pediatric); F31.9 Bipolar disorder, unspecified; G43.909 Migraine, unspecified, not intractable, without status migrainosus; R73.02 Impaired glucose tolerance (oral); E66.01 Morbid (severe) obesity due to excess calories; K76.0 Fatty (change of) liver, not elsewhere classified; E78.00 Pure hypercholesterolemia, unspecified; Z68.43 Body mass index [BMI] 50.0-59.9, adult
CPT/HCPCS: 36415; 80053; 80061; 81001; 81003; 82607; 82746; 83036; 84439; 84443; 85025; 99212

== ENCOUNTER 2025-03-19 09:52 | Outpatient (AMB) | payer OTHER, SELFPAY ==
[2025-03-19 09:59] VITALS: BP 140/88; PULSE 63; TEMP 36.2; O2SAT 98; BMI 51.7
--- NOTE | 2025-03-19 09:59 | A.OFFPC_ITS ---
Vital Signs 03/19/25 09:59 Height 5 ft Weight 265 lb BMI 51.7 BP 140/88 H Blood Pressure Location Lt brachial Position Sitting Pulse 63 Pulse Source Pulse Oximeter Temp 97.1 F Temp Source Temporal Artery Scan Pulse Oximetry (%) 98 Oxygen Delivery Method Room Air Intake Visit Reasons: 1 month f/u Allergies Iodinated Contrast Media (CONTRAST, IV) Allergy (Severe, Verified 03/19/25 09:59) Anaphylaxis bee pollen (bee stings) Allergy (Unknown, Verified 03/19/25 09:59) edema Benadryl Allergy (Unknown, Verified 03/19/25 09:59) edema, swelling citalopram (Celexa) Allergy (Unknown, Verified 03/19/25 09:59) edema hydrochlorothiazide Allergy (Unknown, Verified 03/19/25 09:59) unknown latex Allergy (Unknown, Verified 03/19/25 09:59) Swelling prednisolone Allergy (Unknown, Verified 03/19/25 09:59) unknown seafood Allergy (Unknown, Verified 03/19/25 09:59) Hives shellfish derived Allergy (Unknown, Verified 03/19/25 09:59) Swelling tramadol Allergy (Unknown, Verified 03/19/25 09:59) hives cefpodoxime Adverse Reaction (Intermediate, Verified 03/19/25 09:59) bradycardia, no energy sertraline Adverse Reaction (Intermediate, Verified 03/19/25 09:59) confused, yaya Diamox Sequels Adverse Reaction (Unknown, Verified 03/19/25 09:59) pain/tingling lisinopril Adverse Reaction (Unknown, Verified 03/19/25 09:59) dizziness Medication List - Last Reconciled 03/19/25 by Atif Milian MD albuterol sulfate 90 mcg/actuation (Ventolin HFA) 2 puffs inhalation Q6H PRN amlodipine 5 mg PO DAILY ascorbate calcium (vitamin C) 500 mg PO DAILY 90 days aspirin (Adult Aspirin Regimen) 81 mg PO DAILY cholecalciferol (vitamin D3) 50 mcg PO DAILY 90 days cyanocobalamin (vitamin B-12) 1,000 mcg PO DAILY 90 days docusate sodium (Colace) 200 mg (2 x 100 mg) PO BEDTIME 90 days epinephrine (EpiPen 2-Marshal) 0.3 mg (0.3 mL) IM Q10M PRN fluticasone propionate 110 mcg/actuation 2 puffs inhalation BID furosemide 20 mg PO DAILY 90 days levonorgestrel (Mirena) intrauterine losartan 100 mg PO DAILY meloxicam 15 mg PO DAILY omeprazole 20 mg PO DAILY polyethylene glycol 3350 (Miralax) 17 grams PO DAILY [Rollator with seat and seat As directed] semaglutide (Ozempic) 0.25 mg (0.368 mL) subcut QWEEK sumatriptan succinate 50 - 100 mg orally at onset of headache, may repeat in 2 hrs PRN; max 2 tabs per day or 4 tabs/week (may take with Ibuprofen) 30 days Tobacco use date assessed: 03/19/25 Dental Screening Dental Screen Date: 03/19/25 Did you have a dental visit in the last 12 months?: No Did you have a dental problem in the last 6 months where you did not have access to dental care?: No Was dental information given to patient?: Patient has dentist HPI HPI Comments History of Present Illness Details History of Present Illness The patient is a 39-year-old individual with a history of obesity, hypertension, GERD, obstructive sleep apnea, bipolar disorder, migraine, and hepatic cystosis, presenting for a follow-up visit. The patient was seen by cardiology on March 15 due to concerns about coronary artery disease. A coronary CTA was considered but not performed because of the patient's concerns about a contrast dye allergy. Cardiology advised starting a statin if the LDL is high. Last blood work in September 2024 showed a normal blood count, good electrolytes, and normal renal function. Lab results also included a hemoglobin A1c of 6.3, normal liver function, and an LDL of 108. The patient's mammogram is up to date. Health Maintenance - The patient's mammogram is up to date. - A coronary CTA for coronary artery dis ease screening was not performed due to concerns about a contrast dye allergy. Social History Results - Labs (September 2024): - Blood count: Normal - Electrolytes: Good - Renal function: Good - Hemoglobin A1c: 6.3 - Liver function: Fine - LDL: 108 - Imaging: - Mammogram: Up to date [facility] Medical History Morbid obesity with BMI of 50.0-59.9, adult UTI (urinary tract infection) Recurrent finger dislocation Bilateral hand pain Migraine Morbid obesity Breakthrough bleeding associated with intrauterine device (IUD) Asthma Asthma Left ovarian cyst Morbid obesity due to excess calories Exposure to hepatitis C Insomnia GERD (gastroesophageal reflux disease) Peripheral vascular disease Iron deficiency anemia Irregular menses Well woman exam with routine gynecological exam Obstructive sleep apnea Fibromyalgia Tension headache Bipolar 1 disorder Hypertension Surgical History Hx of tubal ligation Family History Father Hypertension Lymphoma Myocardial infarct Diabetes mellitus Mother Epilepsy Asthma Sleep apnea Bipolar disorder Colon polyps Maternal Grandmother Diabetes mellitus Paternal Grandfather Pancreatic cancer Myocardial infarct Paternal Aunt Breast CA Sister No problems noted. Sister No problems noted. Brother Myocardial infarct Brother No problems noted. Daughter Seizure Anxiety Depression Asthma Migraine Daughter ADHD Daughter No problems noted. Paternal Uncle Schizophrenia Other Mental health disorder Social History Housing: Apartment Alcohol intake: never Patient Tobacco Use Status: Former Tobacco user Tobacco use type: Cigarette Years Smoked: 2010 stopped e-Cigarette/Vaping Use: Never Used Second Hand Smoke Exposure: No service: No Current occupational status: unemployed Current occupation: rt handed Sexual orientation: Straight/Heterosexual Gender identity: Female Cognitive needs: No Hearing needs: No Vision needs: No Female Reproductive History Menstrual Age of Menarche: 10 Questionnaire PHQ-9 Over the last 2 weeks, how often have you been bothered by any of the following problems? 1. Little interest or pleasure in doing things: several days 2. Feeling down, depressed, or hopeless: several days 3. Trouble falling or staying asleep, or sleeping too much: nearly every day 4. Feeling tired or having little energy: several days 5. Poor appetite or overeating: nearly every day 6. Feeling bad about yourself - or that you are a failure or have let yourself or your family down: several days 7. Trouble concentrating on things, such as reading the newspaper or watching television: several days 8. Moving or speaking so slowly that other people could have noticed. Or the opposite - being so fidgety or restless that you have been moving around a lot more than usual: not at all 9. Thoughts that you would be better off or of hurting yourself in some way: not at all Total score: 11 Source: Developed by Drs. Dakotah Faustin, Bonilla Maradiaga and colleagues, with an educational berhane from [employer]. Thrive Questionnaire Date Thrive assessed: 02/15/25 I am a: Patient What is your living situation today?: I have a place to live, but I am worried about losing it in the future Within the past 12 months, did the food you bought not last and you didn't have the money to get more?: I choose not to answer this question Within the past 12 months, did you worry whether your food would run out before you got money to buy more?: Sometimes True Do you have trouble paying for medicines?: No Do you have trouble getting transportation to medical appointments?: No Do you have trouble paying your heating and electricity bill?: I choose not to answer this question Do you have trouble taking care of your child, family member or friend?: I choose not to answer this question Do you have trouble with day-to-day activities such as bathing, preparing meals, shopping, managing finances, etc.?: Yes Are you currently unemployed and looking for a job?: Yes Are you interested in more education?: No Currently or been in a relationship where the following occur: I choose not to answer THRIVE Score: 2 AUDIT C Alcohol Use Questionnaire (AUDIT-C) 1. How often do you have a drink containing alcohol?: Never 3. How often do you have six or more drinks on one occasion?: Never Total Score: 0 JORI-7 AMB Questionnaire OJRI-7 Date JORI - 7 assessed: 07/08/24 Feeling nervous, anxious, or on edge: 1 = Several days Not being able to stop or control worryin = Nearly every day Worrying too much about different things: 3 = Nearly every day Trouble relaxin = More than half the days Being so restless that it is hard to sit still: 1 = Several days Becoming easily annoyed or irritable: 1 = Several days Feeling afraid as if something awful might happen: 1 = Several days Total JORI-7 score (0-4 normal; 5-9 mild; 10-14 moderate; 15-21 severe): 12 Source: Developed by Shaylee Saucedo Kurt Kroenke and colleagues, with an educational berhane from [employer]. Review of Systems Narrative Review of Systems Physical exam (Primary Care) Vital Signs: Last Vital Signs Temp 97.1 F 03/19/25 09:59 Pulse 63 03/19/25 09:59 BP 140/88 H 03/19/25 09:59 Pulse Ox 98 03/19/25 09:59 Oxygen Delivery Method Room Air 03/19/25 09:59 BMI result Body Mass Index 51.7 Tobacco/Smoking Status: Tobacco use Status Tobacco use date assessed 03/19/25 03/19/25 10:00 Patient Tobacco Use Status Former Tobacco user 03/19/25 10:00 Tobacco use type Cigarette 03/19/25 10:00 e-Cigarette/Vaping Use Never Used 03/19/25 10:00 PHQ-9: PHQ-9 Score PHQ-9: Total score 11 03/19/25 10:43 Thrive Assessment: Date of Thrive Assessment Date Thrive assessed 02/15/25 03/19/25 10:00 Currently or been in a relationship where the following occur: I choose not to answer Narrative Physical Exam Const General: alert; No acute distress Eyes Conjunctivae: conjunctivae normal Resp Auscultation: clear to auscultation bilaterally Cardio Rate: regular rate Rhythm: regular rhythm GI Inspection: Yes normal to inspection Extrem General: Yes normal to inspection and No edema Coding Level of Care Code Complex visit Add On G2211 Diagnoses Essential hypertension I10 Hypertension type: essential hypertension Impaired glucose tolerance R73.02 Obesity, morbid, BMI 50 or higher E66.01 Gastroesophageal reflux disease without esophagitis K21.9 Esophagitis presence: without esophagitis Hepatic steatosis K76.0 Obstructive sleep apnea G47.33 Assessment & Plan Assessment & Plan (1) Hypertension: Code(s): I10 - Essential (primary) hypertension Category: Medical Qualifiers: Hypertension type: essential hypertension Qualified Code(s): I10 - Essential (primary) hypertension Plan: Continue with blood pressure medication. Decrease salt intake and exercise presently on amlodipine 5 mg once a day losartan 100 mg once a day (2) Impaired glucose tolerance: Code(s): R73.02 - Impaired glucose tolerance (oral) Category: Medical Plan: Decrease the amount of carbohydrate intake, pasta, bread, rice and potatoes are all sugar and that is aside from all the sweet stuff, remember that fruits are good but they are Sweet also. (3) Obesity, morbid, BMI 50 or higher: Code(s): E66.01 - Morbid (severe) obesity due to excess calories Category: Medical Plan: Diet and exercise (4) GERD (gastroesophageal reflux disease): Code(s): K21.9 - Gastro-esophageal reflux disease without esophagitis Category: Medical Qualifiers: Esophagitis presence: without esophagitis Qualified Code(s): K21.9 - Gastro-esophageal reflux disease without esophagitis Plan: Avoid the foods that causes that usually spicy foods, tomato products, juices, coffee, soda and foods that your sensitive to. After eating do not lie down, allow 3-4 hours before in lie down. And keep the head of bed above 30 degrees to avoid the acid from going up. (5) Hepatic steatosis: Comment: February 2024Hepatomegaly, 16.6 cm. Increased hepatic parenchymal heterogeneity and echogenicity could be associated with hepatocellular disease/hepatic steatosis and substantially limits visualization. Correlation with liver function tests and clinical exam recommended to determine further management. Code(s): K76.0 - Fatty (change of) liver, not elsewhere classified Category: Medical Plan: Low-fat diet and exercise (6) Obstructive sleep apnea: Comment: SHE HAS HAD MODERATE HE HAS SEVERE OBSTRUCTIVE SLEEP APNEA, CONFIRMED WITH THE SLEEP STUDIES IN 2018 AND 2020. HAS BEEN TREATED WITH CPAP., WHICH SHE DID NOT USE FOR ABOUT A YEAR. LAST SLEEP STUDY IN NOVEMBER 2021 SHOWS A MILD DEGREE OF ROCIO. BUT SHE DOES HAVE ASSOCIATED COMORBID CONDITIONS, AND WOULD BENEFIT FROM THE USE OF CPAP. PATIENT HAS STARTED USING THE CPAP ALREADY, WITH PRESSURE SETTING AUTO PAP MODE 5-20 CMS , USING FULLFACE MASK. SHE IS WELL VERSED WITH THE USE OF CPAP. WE WILL CONTACT DME PROVIDER AND, DOWNLOAD HER COMPLIANCE DATA. Code(s): G47.33 - Obstructive sleep apnea (adult) (pediatric) Category: Medical Plan: Continue to use the CPAP more than 4 hours a night and benefits from this. Plan Plan Patient was informed and verbally consented to the use of an ambient scribe for clinic note documentation during this visit. 1. Hypertension The patient is currently on amlodipine 5 mg once a day and losartan 100 mg once a day. 2. Prediabetes The management plan includes diet and exercise. 3. Gastroesophageal Reflux Disease A low-fat diet and exercise are recommended for management. 4. Obstructive Sleep Apnea The patient is advised to continue using the CPAP machine for more than 4 hours nightly. 5. Hyperlipidemia Cardiology advised starting a statin for a high LDL, which was last measured at 108. Discussion Notes Patient Instructions - Continue taking Amlodipine 5 mg once a day for your blood pressure. - Continue taking Losartan 100 mg once a day for your blood pressure. - Manage your blood sugar with diet and exercise as discussed. - To help with acid reflux, please follow a low-fat diet and exercise regularly. - It is important to continue using your CPAP machine for more than 4 hours each night for your sleep apnea. Medications: Changed From amlodipine 5 mg PO DAILY 90 tabs 2RF I10 - Essential (primary) hypertension To amlodipine 10 mg PO DAILY 90 tabs 2RF I10 - Essential (primary) hypertension Discontinued semaglutide (Ozempic) for 4 weeks Discontinued Reason: Doctor's Order 0.25 mg (0.368 mL) subcut QWEEK 3 mL 2RF E66.01 - Morbid (severe) obesity due to excess calories, Z68.43 - Body mass index [BMI] 50.0-59.9, adult
== END 2025-03-19 10:55 | disposition home or self-care (01) ==
LOC: HO.HMCH 09:52
PROVIDERS: PCP Internal Medicine; Visit Provider Internal Medicine
DX: I10 Essential (primary) hypertension (principal); R73.02 Impaired glucose tolerance (oral); E66.01 Morbid (severe) obesity due to excess calories; K21.9 Gastro-esophageal reflux disease without esophagitis; K76.0 Fatty (change of) liver, not elsewhere classified; G47.33 Obstructive sleep apnea (adult) (pediatric); Z68.43 Body mass index [BMI] 50.0-59.9, adult